=== PATIENT | female | born 1940 | race Caucasian/White ===

== ENCOUNTER 2017-02-12 12:38 | Inpatient (IN) | payer OTHER ==
[2017-02-12] MEDS ORDERED: SODIUM CHLORIDE 1,000 ML IV STA (12:59)
[2017-02-12] MEDS ORDERED: VANCOMYCIN 1 GRAM (PRE-DOCKED) 1,000 MG/250 ML BAG IVPB ONE (13:00)
[2017-02-12] MEDS ORDERED: PIPERACILLIN/TAZOB 3.375 GM/50 ML PRE-DOCKED IV ONE (13:00)
[2017-02-12] MEDS ORDERED: ONDANSETRON 4 MG/2 ML VIAL IVPUSH ONE (13:02)
[2017-02-12] MEDS ORDERED: HYDROmorphone HCL CARPU-JECT 2 MG/1 ML DISP.SYRIN IVPB ONE (13:02)
[2017-02-12] MEDS ORDERED: ACETAMINOPHEN 1000 MG/100 ML VIAL (NON FORMULARY) IVPB ONE (13:04)
[2017-02-12] MEDS ORDERED: HYDROmorphone HCL CARPU-JECT 2 MG/1 ML DISP.SYRIN ONE (13:06)
[2017-02-12] MEDS ORDERED: ONDANSETRON 4 MG/2 ML VIAL ONE (13:06)
[2017-02-12] MEDS ORDERED: ACETAMINOPHEN INJECTION 100 ML IVPB ONE (13:06)
--- NOTE | 2017-02-12 13:12 | PDOC ---
History of Present Illness - History of Present Illness Initial Comments: 02/12/17 13:16 The patient is a 76 year old female, with a significant past medical history of borderline diabetes, Afib, hypertension, venous insufficiency, chronic LE ulcer , stroke (6 months ago), and chronic back pain, who presents to the emergency department via ems with funeral home location manager for cellulitis, fever, and with altered mental status today. The patient presents with her funeral home location manager who reports the patient has not taken her methadone or oxycontin in the last 2 days because she has not more medication. The patient has also been taking augmentin for 10 days, however, the funeral home location manager states she has not been taking the antibiotic as directed and the ulcer on her left lower extremity has now increased in surrounding redness and tenderness. The patient's funeral home location manager also states the patient is slightly altered today and is not usually like "this ". As per ems, the patient became combative in the field and was given haldol. She denies chest pain, shortness of breath, headache and dizziness. She denies chills, nausea, vomit, diarrhea and constipation. She denies dysuria, frequency , urgency and hematuria. Allergies: codeine Social history: opioid dependency <Marlena Weinre - Last Filed: 02/12/17 19:31> <William Rodriguez - Last Filed: 02/12/17 19:55> - General Chief Complaint: SIRS, Suspected/Possible Stated Complaint: AMS Time Seen by Provider: 02/12/17 12:56 Past History <Marlena Weiner - Last Filed: 02/12/17 19:31> - Past Medical History Anemia: No Asthma: Yes Cancer: No Cardiac Disorders: Yes (A - FIB) CVA: Yes (STROKE) COPD: No CHF: No Dementia: No Diabetes: Yes GI Disorders: No Disorders: No HTN: Yes Hypercholesterolemia: No Liver Disease: No Seizures: Yes Thyroid Disease: No - Surgical History Abdominal Surgery: No Appendectomy: Yes Cardiac Surgery: No Cholecystectomy: No Lung Surgery: No Neurologic Surgery: No Orthopedic Surgery: No - Psycho/Social/Smoking Cessation Hx Anxiety: No Suicidal Ideation: No Smoking History: Former smoker Have you smoked in the past 12 months: No If you are a former smoker, when did you quit?: 30 years ago Hx Alcohol Use: No Drug/Substance Use Hx: Yes (pain meds) Substance Use Type: None, Prescribed Hx Substance Use Treatment: Yes (2006 [facility]) <William Rodriguez - Last Filed: 02/12/17 19:55> - Past Medical History Allergies/Adverse Reactions: Allergies Allergy/AdvReac Type Severity Reaction Status Date / Time codeine phosphate AdvReac Mild Nausea Verified 06/01/15 14:24 [From Tylenol-Codeine] Home Medications: Ambulatory Orders Furosemide [Lasix -] 40 mg PO DAILY 02/12/17 Methadone [Dolophine -] 20 mg PO Q8H 02/12/17 Metoprolol Tartrate [Lopressor -] 25 mg PO BID 02/12/17 Morphine Sulfate [Morphine Sulfate ER] 15 mg PO Q4H 02/12/17 Nebivolol HCl [Bystolic] 10 mg PO DAILY 02/12/17 Rivaroxaban [Xarelto -] 15 mg PO DAILY 02/12/17 Spironolactone 50 mg PO DAILY 02/12/17 Review of Systems - Review of Systems Able to Perform ROS?: No (altered. ) <Marlena Weiner - Last Filed: 02/12/17 19:31> *Physical Exam - Vital Signs Last Vital Signs Temp Pulse Resp BP Pulse Ox 103.5 F H 134 H 22 133/83 02/12/17 12:56 02/12/17 12:56 02/12/17 12:56 02/12/17 12:56 - Physical Exam Comments: 02/12/17 13:18 GENERAL: (+) Pt is slightly confused, yelling upon exam. Awake, alert. in no acute distress HEAD: No signs of trauma EYES: (+) right pupil is slightly less reactive than left. EOMI, sclera anicteric, conjunctiva clear ENT: Auricles normal inspection, hearing grossly normal, nares patent, oropharynx clear without exudates. Moist mucosa NECK: Normal ROM, supple, no lymphadenopathy, JVD, or masses LUNGS: Breath sounds equal, clear to auscultation bilaterally. No wheezes, and no crackles HEART: Regular rate and rhythm, normal S1 and S2, no murmurs, rubs or gallops ABDOMEN: Soft, nontender, normoactive bowel sounds. No guarding, no rebound. No masses EXTREMITIES: (+) LLE is erythematous and tender surrounding ulcer. Normal range of motion, no edema. No clubbing or cyanosis. No cords. NEUROLOGICAL: Cranial nerves II through XII grossly intact. Gait deferred. SKIN: Warm, Dry, normal turgor, no rashes or lesions noted. <Marlena Weiner - Last Filed: 02/12/17 19:31> Heart Score/ECG Review - ECG Intrepretation Comment:: 02/12/17 14:36 ECG was read by Dr. Rodriguez at 13:30 Impression: Atrial flutter with variable AV block. Nonspecific ST abnormality. Abnormal QRS-T angle, consider primary T wave abnormality. Vent. Rate: 131 bpm <Marlena Weiner - Last Filed: 02/12/17 19:31> ED Treatment Course - LABORATORY CBC & Chemistry Diagram: 02/12/17 13:37 02/12/17 13:37 - RADIOLOGY Radiograph Interpretation: 02/12/17 16:01 CXR was read by Dr. Eddy Impression: weak inspiratory effort. <Marlena Weiner - Last Filed: 02/12/17 19:31> - LABORATORY CBC & Chemistry Diagram: 02/12/17 13:37 02/12/17 13:37 - RADIOLOGY Radiology Studies Ordered: Category Date Time Status CHEST X-RAY PORTABLE* [RAD] Stat Radiology 02/12/17 12:58 Ordered <William Rodriguez - Last Filed: 02/12/17 19:55> Medical Decision Making - Medical Decision Making 02/12/17 13:25 The patient is a 76 year old female with opioid dependence who presents febrile via ems for cellulitis, fever, and AMS today with funeral home location manager. The patient appears to be septic at this time. The patient is yelling in the room upon initial evaluation. The patients medical history is significant for borderline diabetes, Afib, hypertension, venous insufficiency, chronic LE ulcer, stroke (6 months ago), and chronic back pain. I will obtain ECG, PTT, cardiac profile, CBC w/ differential, Comp metabolic panel, lactic acid, PT/INR, urinalysis, blood urinalysis, CXR portable, VBG, type and screen, nasal canula. 02/12/17 16:[address] Sesay at this time to discuss the patient's possible admission to ICU. Dr. Sesay feels the patient can be admitted to [facility] or [address] [place] [address] if she can improve. 02/12/17 17:14 Dr. Braxton was paged via phone answering service at this time requesting a call back for doctor to doctor consult regarding service admission of this patient. 02/12/17 17:37 Dr. Braxton was paged a second time via phone answering service at this time. Dr. Braxton returned the call at 17:38 and the patient's case was discussed. She accepts the admission and requests consults to Dr. Jarvis (ID), Dr. Liao (pain management), Dr. Adarsh Loving (vascular surgeon), and Dr. Ho (cardiology). Dr. Braxton also asks that we call her at 6:30 to determine the placement of the patient's admission (ICU or [facility]). 02/12/17 19:31 Dr. Sesay was called at this time and the patient's case was discussed. Dr. Sesay will accept the patient to the ICU at this time with admission under Dr. Braxton. <Marlena Weiner - Last Filed: 02/12/17 19:31> *DC/Admit/Observation/Transfer - Attestations Scribe Attestion: 02/12/17 13:25 Documentation prepared by Marlena Weiner, acting as anesthesiology medical doctor for William Rodriguez MD <Marlena Weiner - Last Filed: 02/12/17 19:31> - Discharge Dispostion Admit: Yes - Attestations Physician Attestion: 02/12/17 13:12 I, Dr. William Rodriguez, attest that this document has been prepared under my direction and personally reviewed by me in its entirety. I further attest, that it accurately reflects all work, treatment, procedures and medical decision -making performed by me. <William Rodriguez - Last Filed: 02/12/17 19:55> Diagnosis at time of Disposition: Cellulitis of both lower extremities, Severe sepsis, Septic shock, Opioid withdrawal, Lymphedema of both lower extremities, Atrial fibrillation with rapid ventricular response, Lactic acidosis - Discharge Dispostion Condition at time of disposition: Improved
[2017-02-12] MEDS ORDERED: PIPERACILLIN/TAZOB 3.375 GM 50 ML IVPB ONE (13:37)
[2017-02-12 13:50] LABS: MCH 24.5 pg (25.7-33.7); MCHC 30.9 g/dl (32.0-36.0); MEAN CELL VOLUME 79.1 fl (80-96); MEAN PLT VOLUME 8.2 fl (7.5-11.1); PLATELET COUNT 263 K/MM3 (134-434); RDW 19.5 % (11.6-15.6); WHITE BLOOD COUNT 21.7 K/mm3 (4.0-10.0)
[2017-02-12] MEDS ORDERED: VANCOMYCIN 1 GRAM (PRE-DOCKED) 250 ML IVPB ONE (14:01)
[2017-02-12 14:05] LABS: INR 1.69 (0.82-1.09); PROTHROMBIN TIME (PATIENT) 18.8 SEC (9.98-11.88)
[2017-02-12 14:12] LABS: ALBUMIN 1.8 g/dl (3.4-5.0); BILIRUBIN,TOTAL 1.1 mg/dL (0.2-1.0); CALCIUM 7.7 mg/dL (8.5-10.1); COCKROFT - GAULT 44.965; CREATININE 1.7 mg/dL (0.55-1.02); TOT PROT 6.4 g/dl (6.4-8.2)
[2017-02-12 14:25] LABS: TROPONIN I 0.23 ng/ml (0.00-0.05)
[2017-02-12] MEDS ORDERED: HALOPERIDOL LACTATE 5 MG/ML IVPUSH ONE (14:27)
[2017-02-12] MEDS ORDERED: LORAZEPAM CARPU-JECT 2 MG/ML DISP.SYRIN IVPUSH ONE (14:27)
[2017-02-12 14:32] LABS: ARTERIAL BLD GAS O2 SATURATION 95.6 % (90-98.9); ARTERIAL BLOOD GAS BASE EXCESS -1.7 meq/l (-2-2); ARTERIAL BLOOD GAS HCO3 21.5 meq/L (22-26); ARTERIAL BLOOD GAS PO2 76.7 mmHg (70-100); ARTERIAL BLOOD GAS pH 7.44 (7.35-7.45)
[2017-02-12 14:33] LABS: ALLENS TEST POSITIVE; ART PUNCT SITE RIGHT RADIAL; LPM/O2% 21%; PT. ON O2? NO; TYPE OF O2 ROOM AIR
[2017-02-12] MEDS ORDERED: HALOPERIDOL LACTATE 5 MG/ML ONE (14:33)
[2017-02-12] MEDS ORDERED: LORAZEPAM CARPU-JECT 2 MG/ML DISP.SYRIN ONE (14:34)
--- NOTE | 2017-02-12 16:10 | EKG ---
Test Reason : Blood Pressure : / mmHG Vent. Rate : 131 BPM Atrial Rate : 393 BPM P-R Int : 000 ms QRS Dur : 076 ms QT Int : 306 ms P-R-T Axes : 000 058 -17 degrees QTc Int : 451 ms ATRIAL FIBRILLATION WITH RAPID VENTRICULAR RESPONSE NONSPECIFIC ST ABNORMALITY ABNORMAL QRS-T ANGLE, CONSIDER PRIMARY T WAVE ABNORMALITY ABNORMAL ECG WHEN COMPARED WITH ECG OF 07-MAY-2015 22:09, NONSPECIFIC T WAVE ABNORMALITY NO LONGER EVIDENT IN LATERAL LEADS Confirmed by ARTI VARNER MD ([id number]) on 02/12/2017 4:10:23 PM Referred By: Confirmed By:ARTI VARNER MD
[2017-02-12 17:33] LABS: METAMYELOCYTE 1 % (0-2)
[2017-02-12 17:35] LABS: ANISOCYTOSIS 1+; PLATELET ESTIMATE ADEQUATE (NORMAL); POLYCHROMASIA RARE; TOXIC GRANULATION 1+
[2017-02-12 18:33] LABS: TROPONIN I 0.23 ng/ml (0.00-0.05)
--- NOTE | 2017-02-12 21:15 | CONSULT ---
Consult Consult Specialty:: Pulm/CCM Reason for Consultation:: Sepsis, cellulitis, LOVE, afib w/ RVR - History of Present Illness Chief Complaint: AMS, LE edema/redness/pain History of Present Illness: This is a 75 yo woman with HTN, CVA (2016), chronic pain disorder (back) on methadone, Afib on xarelto, peripheral vascular disease c/b chronic LE ulcers who presented from home with fever, increased LE edema and erythema around ulcer c/w cellulitis. Per patient INFRASTRUCTURE SOLUTIONS ARCHITECT patient was recently prescribed augmentin for LE cellulitis but has been non compliant w/ therapy. On da yof admission INFRASTRUCTURE SOLUTIONS ARCHITECT noted patient with AMS (combative). EMS was activated and patient received haldol in the field 2/2 agitation. In the ED she was noted to have leukocytosis (wbc 21, 19% bands), and febrile (103.5). Lactate 7->4. She continued to have agitation t/w ativan and benadryl. ABX started for sepsis r/t cellulitis: vanco/ zosyn. BP initially 130/60 but dropped to SBP 80-90s. EKG: afib w/ RVR (130s) - History Source History Provided By: Medical Record Limitations to Obtaining History: Poor Historian - Past Medical History BIOMEDICAL TECHNICIAN: Yes: CVA Cardio/Vascular: Yes: HTN Infectious Disease: Yes: Other (cellulits) Musculoskeletal: Yes: Chronic low back pain Dermatology: Yes: Cellulitis (chronic bilateral LE) - Alcohol/Substance Use Hx Alcohol Use: No - Smoking History Smoking history: Former smoker Have you smoked in the past 12 months: No If you are a former smoker, when did you quit?: 30 years ago - Social History ADL: Support Services History of Recent Travel: No Home Medications - Allergies Allergies/Adverse Reactions: Allergies Allergy/AdvReac Type Severity Reaction Status Date / Time codeine phosphate AdvReac Mild Nausea Verified 06/01/15 14:24 [From Tylenol-Codeine] - Home Medications Home Medications: Ambulatory Orders Furosemide [Lasix -] 40 mg PO DAILY 02/12/17 Methadone [Dolophine -] 20 mg PO Q8H 02/12/17 Metoprolol Tartrate [Lopressor -] 25 mg PO BID 02/12/17 Morphine Sulfate [Morphine Sulfate ER] 15 mg PO Q4H 02/12/17 Nebivolol HCl [Bystolic] 10 mg PO DAILY 02/12/17 Rivaroxaban [Xarelto -] 15 mg PO DAILY 02/12/17 Spironolactone 50 mg PO DAILY 02/12/17 Family Disease History - Family Disease History Family History: Unable to Obtain Review of Systems Unable to obtain ROS, reason: uncooperative/agitation - Review of Systems Constitutional: reports: Fever Integumentary: reports: Erythema, Wound Neurological: reports: Confusion Pain Intensity: 8 Physical Exam Vital Signs: Vital Signs Temperature 99.2 F 02/12/17 17:30 Pulse Rate 107 H 02/12/17 19:02 Respiratory Rate 20 02/12/17 19:02 Blood Pressure 91/60 02/12/17 19:02 O2 Sat by Pulse Oximetry (%) 98 02/12/17 19:02 Selected Entries 02/12/17 13:37 Temperature 103.5 F H Constitutional: Yes: Obese, Other (agitated) Cardiovascular: Yes: Pulse Irregular, S1, S2 Respiratory: Yes: CTA Bilaterally Gastrointestinal: Yes: Soft, Abdomen, Obese, Other (non tender to palp) Edema: Yes Edema: LLE: 3+, RLE: 3+ Integumentary: Yes: Venous Stasis Changes, Other (stage 2 buttock: 2x3 left, 1x1 right RLE: large almost completely circumferential (~16cm x15cm) escar based ulcer erythemia. LLE large (10x15 clean based with escar at edges) with erythemia) Neurological: Yes: Confusion Psychiatric: Yes: Agitated Labs: CBC, BMP 02/12/17 13:37 02/12/17 13:37 Laboratory Tests 02/12/17 02/12/17 02/12/17 13:37 13:37 17:44 Band Neutrophils 19.0 H Lactic Acid 7.303 H* 4.482 H* Imaging - Results Chest X-ray: Report Reviewed, Image Reviewed (clear, no focal infiltrate noted) Problem List - Problems (1) Atrial fibrillation with rapid ventricular response Code(s): I48.91 - UNSPECIFIED ATRIAL FIBRILLATION (2) Cellulitis of both lower extremities Code(s): L03.115 - CELLULITIS OF RIGHT LOWER LIMB L03.116 - CELLULITIS OF LEFT LOWER LIMB (3) Lactic acid acidosis Code(s): E87.2 - ACIDOSIS (4) Severe sepsis Code(s): A41.9 - SEPSIS, UNSPECIFIED ORGANISM R65.20 - SEVERE SEPSIS WITHOUT SEPTIC SHOCK (5) Chronic cutaneous venous stasis ulcer Code(s): I83.009 - VARICOSE VEINS OF UNSP LOWER EXTREMITY W ULCER OF UNSP SITE (6) Chronic pain Code(s): G89.29 - OTHER CHRONIC PAIN (7) Opioid dependence Code(s): F11.20 - OPIOID DEPENDENCE, UNCOMPLICATED (8) LOVE (acute kidney injury) Code(s): N17.9 - ACUTE KIDNEY FAILURE, UNSPECIFIED Assessment/Plan This is a 75 yo woman HTN, CVA, chronic pain disorder (methadone), A fib w/ RVR , peripheral vascular disease c/b LE ulcer now with sepsis r/t LE cellulitis c/ b afib w/ RVR and LOVE (baseline Scr 1.0) likely prerenal -surgical evaluation of LE ulcers -will likely need NIFS -will do wet to dry dressing tonight -ID consulted -will continue zosyn and vanco for broad coverage of cellulitis -f/u blood cultures -renal dose medications (vanco by level) -IV fluids for BP support -hold home lasix and anti HTN meds -urine lytes -christina cath -trend lactate -trend troponin (slightly elevated most likely r/t RVR) -will place CVC for central access if BP refractory to IVF -EKG to monitor qtc in setting of methadone and haldol -if hypotensive w/ continued afib w/ RVR will start amiodarone in the acute setting, goal HR <100 -cont methadone daily -prn hydromorphone for pain -O2 for Sat >92% -currently on xarelto as outpatient would favor starting heparin in the setting of acute illness and questionable need of surgical intervention, will defer to primary MD -APAP for fever >101 -pepcid for GI prophylaxis given sepsis Boerem ACNP Pulm/CCM CCT: 45m
[2017-02-12] MEDS ORDERED: SODIUM CHLORIDE 1,000 ML IV SCH (21:45)
[2017-02-12] MEDS ORDERED: ACETAMINOPHEN 325 MG TABLET (FP) PO PRN (21:50)
[2017-02-12] MEDS ORDERED: CHLORHEXIDINE GLUCONATE 4% CLEANSER FOR DECOLONIZATION TP SCH (22:00)
[2017-02-12] MEDS: MUPIROCIN 2% TOPICAL OINTMENT FOR DECOLONIZATION NS SCH (22:48)
[2017-02-12 23:11] LABS: URINE APPEARANCE TURBID; URINE BLOOD NEGATIVE (NEGATIVE); URINE COLOR RED; URINE GLUCOSE (UA) NEGATIVE (NEGATIVE); URINE KETONE NEGATIVE (NEGATIVE); URINE LEUK ESTERASE NEGATIVE (NEGATIVE); URINE NITRITE NEGATIVE (NEGATIVE); URINE UROBILINOGEN 4.0 E.U/dl E.U./dl (0.2-1.0)
[2017-02-12 23:12] LABS: URINE PROTEIN 1+ (NEGATIVE)
[2017-02-12 23:22] LABS: URINE MUCUS FEW; URINE RBC 2 /hpf (0-3)
[2017-02-12 23:47] VITALS: BMI 40.6
--- NOTE | 2017-02-13 00:27 | HP ---
Admitting History and Physical - Admission Chief Complaint: Fever History of Present Illness: Pt is a 76 y/o morbidly obese female w/ multiple medical problems including a cva about 6 months ago w/ residual weakness/dysphagia. Pt has a PMH significant for Afib, HTN, HLD, diabetes, chronic venous stasis, chronic leg ulcers, morbid obesityy and chronic back pain for wc she had been on opiates and due to opoid dependency was on methadone. Pt had not taken methadone in 2 days. Pt was sent to the ER bc her ENGINEERING DRAFTER noticed pt to be more lethargic and worsening of her leg ulcers w/ increased erythema. In the ER pt found to be septic and was admitted to the ICU. - Past Medical History PATIENT MONITOR: Yes: CVA Cardiovascular: Yes: AFIB, HTN, Hyperlipdemia ...: No Infectious Disease: Yes: Other (cellulits) Musculoskeletal: Yes: Chronic low back pain Dermatology: Yes: Cellulitis (chronic bilateral LE), Other (Chronic venous stasis) - Smoking History Smoking history: Former smoker Have you smoked in the past 12 months: No If you are a former smoker, when did you quit?: 30 years ago - Alcohol/Substance Use Hx Alcohol Use: No - Social History ADL: Support Services History of Recent Travel: No Home Medications - Allergies Allergies/Adverse Reactions: Allergies Allergy/AdvReac Type Severity Reaction Status Date / Time codeine phosphate AdvReac Mild Nausea Verified 06/01/15 14:24 [From Tylenol-Codeine] - Home Medications Home Medications: Ambulatory Orders Furosemide [Lasix -] 40 mg PO DAILY 02/12/17 Methadone [Dolophine -] 20 mg PO Q8H 02/12/17 Metoprolol Tartrate [Lopressor -] 25 mg PO BID 02/12/17 Morphine Sulfate [Morphine Sulfate ER] 15 mg PO Q4H 02/12/17 Nebivolol HCl [Bystolic] 10 mg PO DAILY 02/12/17 Rivaroxaban [Xarelto -] 15 mg PO DAILY 02/12/17 Spironolactone 50 mg PO DAILY 02/12/17 Family Disease History - Family Disease History Family History: Unable to Obtain Review of Systems Unable to obtain ROS, reason: Altered mental status Physical Examination Vital Signs: Vital Signs Temperature 97.9 F 02/12/17 23:27 Pulse Rate 85 02/13/17 00:11 Respiratory Rate 13 02/13/17 00:11 Blood Pressure 105/51 02/13/17 00:11 O2 Sat by Pulse Oximetry (%) 98 02/12/17 23:27 Constitutional: Yes: Obese HENT: Yes: WNL Neck: Yes: Supple Cardiovascular: Yes: Pulse Irregular Respiratory: Yes: Other (Decreased BS b/l) Gastrointestinal: Yes: Normal Bowel Sounds, Abdomen, Obese Extremities: Yes: Other ((+) b/l edema/venous stasis/erythem and chronic ulcers w/ some drainage) Problem List - Problems (1) Sepsis Assessment/Plan: Probably due to cellulitis/chronic leg ulcers Cont IV antibxs Cont wound care ID consult/Critical care consult Cont IVF Monitor lactic acid Code(s): A41.9 - SEPSIS, UNSPECIFIED ORGANISM (2) Altered mental state Assessment/Plan: Probably combination of metabolic vs infectious encephalopathy Code(s): R41.82 - ALTERED MENTAL STATUS, UNSPECIFIED (3) Atrial fibrillation with rapid ventricular response Assessment/Plan: Unclear if pt was on xarelto Cont IV heparin for now As per cardio Tachy due to sepsis Code(s): I48.91 - UNSPECIFIED ATRIAL FIBRILLATION (4) Lymphedema of both lower extremities Code(s): I89.0 - LYMPHEDEMA, NOT ELSEWHERE CLASSIFIED (5) Chronic cutaneous venous stasis ulcer Code(s): I83.009 - VARICOSE VEINS OF UNSP LOWER EXTREMITY W ULCER OF UNSP SITE (6) Chronic pain Code(s): G89.29 - OTHER CHRONIC PAIN (7) Diabetes Code(s): E11.9 - TYPE 2 DIABETES MELLITUS WITHOUT COMPLICATIONS (8) HTN (hypertension) Code(s): I10 - ESSENTIAL (PRIMARY) HYPERTENSION (9) Morbid obesity Code(s): E66.01 - MORBID (SEVERE) OBESITY DUE TO EXCESS CALORIES
[2017-02-13] MEDS ORDERED: PIPERACILLIN/TAZOB 3.375 GM/50 ML PRE-DOCKED IVPB ONE (02:00)
[2017-02-13 06:41] LABS: MCH 24.1 pg (25.7-33.7); MEAN CELL VOLUME 77.9 fl (80-96); MEAN PLT VOLUME 8.4 fl (7.5-11.1); PLATELET COUNT 247 K/MM3 (134-434); RDW 19.5 % (11.6-15.6); WHITE BLOOD COUNT 16.7 K/mm3 (4.0-10.0)
[2017-02-13 07:02] LABS: INR 1.54 (0.82-1.09); PROTHROMBIN TIME (PATIENT) 17.1 SEC (9.98-11.88)
[2017-02-13 07:05] LABS: ACTIVATED PTT 34.5 SECONDS (26.9-34.4)
[2017-02-13 07:13] LABS: CALCIUM 7.2 mg/dL (8.5-10.1); COCKROFT - GAULT 62.7385; CREATININE 1.4 mg/dL (0.55-1.02); MAGNESIUM 1.9 mg/dL (1.8-2.4); PHOSPHOROUS 3.2 mg/dL (2.5-4.9)
[2017-02-13 07:57] LABS: TROPONIN I 0.13 ng/ml (0.00-0.05)
[2017-02-13] MEDS: HYDROmorphone HCL CARPU-JECT 2 MG/1 ML DISP.SYRIN IVPUSH PRN ×4 (08:58→22:42)
[2017-02-13] MEDS: METOPROLOL TARTRATE 25 MG TABLET (FP) PO SCH ×3 (09:01→22:35)
[2017-02-13] MEDS: MUPIROCIN 2% TOPICAL OINTMENT FOR DECOLONIZATION NS SCH ×2 (09:43→22:26)
[2017-02-13] MEDS ORDERED: METOPROLOL TARTRATE 25 MG TABLET (FP) PO SCH (10:00)
[2017-02-13] MEDS ORDERED: PIPERACILLIN/TAZOB 3.375 GM 50 ML IVPB SCH (10:00)
[2017-02-13] MEDS ORDERED: PANTOPRAZOLE 20 MG TABLET (FP) PO SCH (10:00)
[2017-02-13 11:46] LABS: URINE MARIJUANA THC NEGATIVE ng/ml (CUTOFF=50)
--- NOTE | 2017-02-13 12:07 | PN ---
Progress Note (short form) - Note Progress Note: ID Consult dictated Sepsis/ septic shock, probable skin source Infected leg ulcers/ LE cellulitis Toxic metabolic encephalopathy Hx MRSA Hemodynamic suport/ ICU monitoring Pending sepsis workup, continue zosyn/ vancomycin Local wound care Contact precautions MRSA Critical care time 35min
[2017-02-13] MEDS ORDERED: VANCOMYCIN 1 GRAM (PRE-DOCKED) 250 ML IVPB SCH (12:15)
--- NOTE | 2017-02-13 12:20 | PN ---
Teaching Attending Note Name of Resident: Kameron Benoit ATTENDING PHYSICIAN STATEMENT I saw and evaluated the patient. I reviewed the resident's note and discussed the case with the resident. I agree with the resident's findings and plan as documented. SUBJECTIVE: Patient seen and examined in the ICU. Reports some chronic discomfort in her LE. No CP or SOB. Remains off pressors; BP marginal. Required several doses of sedatives overnight due to being combative. Intake & Output 02/10/17 02/11/17 02/12/17 02/13/17 23:59 23:59 23:59 23:59 Intake Total 1000 1000 Output Total 300 Balance 1000 700 Weight 251 lb 6.4 oz 252 lb 6 oz Last Vital Signs Temp Pulse Resp BP Pulse Ox 99.1 F 100 H 18 86/55 98 02/13/17 10:07 02/13/17 12:00 02/13/17 12:00 02/13/17 12:00 02/13/17 07:55 Active Medications Acetaminophen (Tylenol -) 650 mg PO Q6H PRN PRN Reason: FEVER OR PAIN Last Admin: 02/13/17 09:52 Dose: 650 mg Chlorhexidine Gluconate (Hibiclens For Decolonization -) 1 applic TP HS CHENTE Last Admin: 02/12/17 22:48 Dose: 1 applic Hydromorphone HCl (Dilaudid Injection -) 2 mg IVPUSH Q4H PRN PRN Reason: PAIN LEVEL 6-10 Last Admin: 02/13/17 08:58 Dose: 2 mg Sodium Chloride (Normal Saline -) 1,000 mls @ 100 mls/hr IV ASDIR CHENTE Last Admin: 02/12/17 22:50 Dose: 100 mls/hr Piperacillin Sod/Tazobactam Sod (Zosyn 4.5gm Ivpb (Pre-Docked)) 100 mls @ 200 mls/hr IVPB Q8H-IV CHENTE PRN Reason: Protocol Vancomycin HCl (Vancomycin (Pre-Docked)) 250 mls @ 200 mls/hr IVPB BID CHENTE Metoprolol Tartrate (Lopressor -) 25 mg PO BID CHENTE Last Admin: 02/13/17 09:59 Dose: Not Given Mupirocin (Bactroban Ointment (For Decolonization) -) 1 applic NS BID [facility] Stop: 02/17/17 21:59 Last Admin: 02/13/17 09:43 Dose: 1 applic Pantoprazole Sodium (Protonix -) 20 mg PO DAILY CHENTE Last Admin: 02/13/17 09:53 Dose: 20 mg Constitutional: Yes: Obese, NAD Cardiovascular: Yes: Pulse Irregular, S1, S2 Respiratory: Yes: CTA Bilaterally Gastrointestinal: Yes: Soft, Abdomen, Obese, Other (non tender to palp) Edema: Yes Edema: LLE: 3+, RLE: 3+ Integumentary: Yes: Venous Stasis Changes, Other (stage 2 buttock: 2x3 left, 1x1 right RLE: large almost completely circumferential (~16cm x15cm) escar based ulcer erythemia. LLE large (10x15 clean based with escar at edges) with erythemia) Neurological: Yes: Confusion Psychiatric: Yes: Agitated Labs: Laboratory Results - last 24 hr 02/12/17 02/12/17 02/12/17 13:37 13:37 13:37 WBC 21.7 H RBC 3.84 D Hgb 9.4 L D Hct 30.3 L D MCV 79.1 L MCHC 30.9 L RDW 19.5 H Plt Count 263 D MPV 8.2 Neutrophils % 77.0 Lymphocytes % 2.0 L D Monocytes % 1.0 L D Band Neutrophils 19.0 H Metamyelocytes 1 Differential Comment Manual diff done Toxic Granulation 1+ Platelet Estimate Adequate Platelet Comment Few giant plts Polychromasia Rare Anisocytosis 1+ Morphology Comment Slide scanned INR 1.69 H PTT (Actin FS) 33.0 Puncture Site ABG pH ABG pCO2 at Pt Temp ABG pO2 at Pt Temp ABG HCO3 ABG O2 Sat (Measured) ABG O2 Content ABG Base Excess Vinod Test O2 Delivery Device Oxygen Flow Rate PEEP Sodium 131 L Potassium 4.1 Chloride 92 L Carbon Dioxide 23 Anion Gap 16 BUN 22 H D Creatinine 1.7 H D Creat Clearance w eGFR 29.30 Random Glucose 180 H Hemoglobin A1c % Lactic Acid Calcium 7.7 L Phosphorus Magnesium Total Bilirubin 1.1 H D AST 48 H D ALT 13 Alkaline Phosphatase 124 H Creatine Kinase 1212 H D CK-MB (CK-2) 8.459 H Troponin I 0.23 H Total Protein 6.4 Albumin 1.8 L D Urine Color Urine Appearance Urine pH Ur Specific [place] Urine Protein Urine Glucose (UA) Urine Ketones Urine Blood Urine Nitrite Urine Bilirubin Urine Urobilinogen Ur Leukocyte Esterase Urine RBC Urine WBC Urine Mucus U Random Total Protein Ur Random Sodium Ur Random Potassium Ur Random Chloride Urine Creatinine Random Vancomycin Opiates Screen Methadone Screen Barbiturate Screen Phencyclidine Screen Ur Amphetamines Screen MDMA (Ecstasy) Screen Benzodiazepines Screen Cocaine Screen U Marijuana (THC) Screen Blood Type Antibody Screen 02/12/17 02/12/17 02/12/17 13:37 13:37 13:59 WBC RBC Hgb Hct MCV MCHC RDW Plt Count MPV Neutrophils % Lymphocytes % Monocytes % Band Neutrophils Metamyelocytes Differential Comment Toxic Granulation Platelet Estimate Platelet Comment Polychromasia Anisocytosis Morphology Comment INR PTT (Actin FS) Puncture Site ABG pH ABG pCO2 at Pt Temp ABG pO2 at Pt Temp ABG HCO3 ABG O2 Sat (Measured) ABG O2 Content ABG Base Excess Vinod Test O2 Delivery Device Oxygen Flow Rate PEEP Sodium Potassium Chloride Carbon Dioxide Anion Gap BUN Creatinine Creat Clearance w eGFR Random Glucose Hemoglobin A1c % Lactic Acid 7.303 H* Calcium Phosphorus Magnesium Total Bilirubin AST ALT Alkaline Phosphatase Creatine Kinase CK-MB (CK-2) Troponin I Total Protein Albumin Urine Color Urine Appearance Urine pH Ur Specific [place] Urine Protein Urine Glucose (UA) Urine Ketones Urine Blood Urine Nitrite Urine Bilirubin Urine Urobilinogen Ur Leukocyte Esterase Urine RBC Urine WBC Urine Mucus U Random Total Protein Ur Random Sodium Ur Random Potassium Ur Random Chloride Urine Creatinine Random Vancomycin Opiates Screen Methadone Screen Barbiturate Screen Phencyclidine Screen Ur Amphetamines Screen MDMA (Ecstasy) Screen Benzodiazepines Screen Cocaine Screen U Marijuana (THC) Screen Blood Type A POSITIVE A POSITIVE Antibody Screen Negative 02/12/17 02/12/17 02/12/17 14:30 14:50 17:25 WBC RBC Hgb Hct MCV MCHC RDW Plt Count MPV Neutrophils % Lymphocytes % Monocytes % Band Neutrophils Metamyelocytes Differential Comment Toxic Granulation Platelet Estimate Platelet Comment Polychromasia Anisocytosis Morphology Comment INR PTT (Actin FS) Puncture Site Right radial ABG pH 7.44 ABG pCO2 at Pt Temp 32.0 L ABG pO2 at Pt Temp 76.7 ABG HCO3 21.5 L ABG O2 Sat (Measured) 95.6 ABG O2 Content 11.6 L ABG Base Excess -1.7 Vinod Test Positive O2 Delivery Device Room air Oxygen Flow Rate 21% PEEP 0.0 Sodium Potassium Chloride Carbon Dioxide Anion Gap BUN Creatinine Creat Clearance w eGFR Random Glucose Hemoglobin A1c % Lactic Acid 7.250 H* Calcium Phosphorus Magnesium Total Bilirubin AST ALT Alkaline Phosphatase Creatine Kinase 1686 H D CK-MB (CK-2) Troponin I 0.23 H Total Protein Albumin Urine Color Urine Appearance Urine pH Ur Specific [place] Urine Protein Urine Glucose (UA) Urine Ketones Urine Blood Urine Nitrite Urine Bilirubin Urine Urobilinogen Ur Leukocyte Esterase Urine RBC Urine WBC Urine Mucus U Random Total Protein Ur Random Sodium Ur Random Potassium Ur Random Chloride Urine Creatinine Random Vancomycin Opiates Screen Methadone Screen Barbiturate Screen Phencyclidine Screen Ur Amphetamines Screen MDMA (Ecstasy) Screen Benzodiazepines Screen Cocaine Screen U Marijuana (THC) Screen Blood Type Antibody Screen 02/12/17 02/12/17 02/12/17 17:44 22:20 22:50 WBC RBC Hgb Hct MCV MCHC RDW Plt Count MPV Neutrophils % Lymphocytes % Monocytes % Band Neutrophils Metamyelocytes Differential Comment Toxic Granulation Platelet Estimate Platelet Comment Polychromasia Anisocytosis Morphology Comment INR PTT (Actin FS) Puncture Site ABG pH ABG pCO2 at Pt Temp ABG pO2 at Pt Temp ABG HCO3 ABG O2 Sat (Measured) ABG O2 Content ABG Base Excess Vinod Test O2 Delivery Device Oxygen Flow Rate PEEP Sodium Potassium Chloride Carbon Dioxide Anion Gap BUN Creatinine Creat Clearance w eGFR Random Glucose Hemoglobin A1c % Lactic Acid 4.482 H* Calcium Phosphorus Magnesium Total Bilirubin AST ALT Alkaline Phosphatase Creatine Kinase CK-MB (CK-2) Troponin I Total Protein Albumin Urine Color Red Urine Appearance Turbid Urine pH 5.0 Ur Specific [place] 1.028 Urine Protein 1+ H Urine Glucose (UA) Negative Urine Ketones Negative Urine Blood Negative Urine Nitrite Negative Urine Bilirubin 2.0 Urine Urobilinogen 4.0 e.u/dl H Ur Leukocyte Esterase Negative Urine RBC 2 Urine WBC None Urine Mucus Few U Random Total Protein 91 H Ur Random Sodium 8 Ur Random Potassium 57.2 Ur Random Chloride 18 Urine Creatinine 250.0 Random Vancomycin Opiates Screen Methadone Screen Barbiturate Screen Phencyclidine Screen Ur Amphetamines Screen MDMA (Ecstasy) Screen Benzodiazepines Screen Cocaine Screen U Marijuana (THC) Screen Blood Type Antibody Screen 02/13/17 02/13/17 02/13/17 05:30 05:30 05:30 WBC 16.7 H RBC 3.45 L Hgb 8.3 L D Hct 26.9 L MCV 77.9 L MCHC 31.0 L RDW 19.5 H Plt Count 247 MPV 8.4 Neutrophils % Lymphocytes % Monocytes % Band Neutrophils Metamyelocytes Differential Comment Toxic Granulation Platelet Estimate Platelet Comment Polychromasia Anisocytosis Morphology Comment INR 1.54 H PTT (Actin FS) 34.5 H Puncture Site ABG pH ABG pCO2 at Pt Temp ABG pO2 at Pt Temp ABG HCO3 ABG O2 Sat (Measured) ABG O2 Content ABG Base Excess Vinod Test O2 Delivery Device Oxygen Flow Rate PEEP Sodium 135 L Potassium 4.2 Chloride 99 Carbon Dioxide 25 Anion Gap 11 BUN 26 H Creatinine 1.4 H Creat Clearance w eGFR Random Glucose 112 H D Hemoglobin A1c % Lactic Acid Calcium 7.2 L Phosphorus 3.2 Magnesium 1.9 Total Bilirubin AST ALT Alkaline Phosphatase Creatine Kinase CK-MB (CK-2) Troponin I Total Protein Albumin Urine Color Urine Appearance Urine pH Ur Specific [place] Urine Protein Urine Glucose (UA) Urine Ketones Urine Blood Urine Nitrite Urine Bilirubin Urine Urobilinogen Ur Leukocyte Esterase Urine RBC Urine WBC Urine Mucus U Random Total Protein Ur Random Sodium Ur Random Potassium Ur Random Chloride Urine Creatinine Random Vancomycin Opiates Screen Methadone Screen Barbiturate Screen Phencyclidine Screen Ur Amphetamines Screen MDMA (Ecstasy) Screen Benzodiazepines Screen Cocaine Screen U Marijuana (THC) Screen Blood Type Antibody Screen 02/13/17 02/13/17 02/13/17 05:30 05:30 05:30 WBC RBC Hgb Hct MCV MCHC RDW Plt Count MPV Neutrophils % Lymphocytes % Monocytes % Band Neutrophils Metamyelocytes Differential Comment Toxic Granulation Platelet Estimate Platelet Comment Polychromasia Anisocytosis Morphology Comment INR PTT (Actin FS) Puncture Site ABG pH ABG pCO2 at Pt Temp ABG pO2 at Pt Temp ABG HCO3 ABG O2 Sat (Measured) ABG O2 Content ABG Base Excess Vinod Test O2 Delivery Device Oxygen Flow Rate PEEP Sodium Potassium Chloride Carbon Dioxide Anion Gap BUN Creatinine Creat Clearance w eGFR Random Glucose Hemoglobin A1c % 8.6 H Lactic Acid 2.255 H* Calcium Phosphorus Magnesium Total Bilirubin AST ALT Alkaline Phosphatase Creatine Kinase 1654 H CK-MB (CK-2) Troponin I 0.13 H Total Protein Albumin Urine Color Urine Appearance Urine pH Ur Specific [place] Urine Protein Urine Glucose (UA) Urine Ketones Urine Blood Urine Nitrite Urine Bilirubin Urine Urobilinogen Ur Leukocyte Esterase Urine RBC Urine WBC Urine Mucus U Random Total Protein Ur Random Sodium Ur Random Potassium Ur Random Chloride Urine Creatinine Random Vancomycin Opiates Screen Methadone Screen Barbiturate Screen Phencyclidine Screen Ur Amphetamines Screen MDMA (Ecstasy) Screen Benzodiazepines Screen Cocaine Screen U Marijuana (THC) Screen Blood Type Antibody Screen 02/13/17 02/13/17 05:30 10:00 WBC RBC Hgb Hct MCV MCHC RDW Plt Count MPV Neutrophils % Lymphocytes % Monocytes % Band Neutrophils Metamyelocytes Differential Comment Toxic Granulation Platelet Estimate Platelet Comment Polychromasia Anisocytosis Morphology Comment INR PTT (Actin FS) Puncture Site ABG pH ABG pCO2 at Pt Temp ABG pO2 at Pt Temp ABG HCO3 ABG O2 Sat (Measured) ABG O2 Content ABG Base Excess Viond Test O2 Delivery Device Oxygen Flow Rate PEEP Sodium Potassium Chloride Carbon Dioxide Anion Gap BUN Creatinine Creat Clearance w eGFR Random Glucose Hemoglobin A1c % Lactic Acid Calcium Phosphorus Magnesium Total Bilirubin AST ALT Alkaline Phosphatase Creatine Kinase CK-MB (CK-2) Troponin I Total Protein Albumin Urine Color Urine Appearance Urine pH Ur Specific [place] Urine Protein Urine Glucose (UA) Urine Ketones Urine Blood Urine Nitrite Urine Bilirubin Urine Urobilinogen Ur Leukocyte Esterase Urine RBC Urine WBC Urine Mucus U Random Total Protein Ur Random Sodium Ur Random Potassium Ur Random Chloride Urine Creatinine Random Vancomycin 6.999 Opiates Screen Positive Methadone Screen Positive Barbiturate Screen Negative Phencyclidine Screen Negative Ur Amphetamines Screen Negative MDMA (Ecstasy) Screen Negative Benzodiazepines Screen Negative Cocaine Screen Negative U Marijuana (THC) Screen Negative Blood Type Antibody Screen Problem List - Problems (1) Atrial fibrillation with rapid ventricular response Code(s): I48.91 - UNSPECIFIED ATRIAL FIBRILLATION (2) Cellulitis of both lower extremities Code(s): L03.115 - CELLULITIS OF RIGHT LOWER LIMB L03.116 - CELLULITIS OF LEFT LOWER LIMB (3) Lactic acid acidosis Code(s): E87.2 - ACIDOSIS (4) Severe sepsis Code(s): A41.9 - SEPSIS, UNSPECIFIED ORGANISM R65.20 - SEVERE SEPSIS WITHOUT SEPTIC SHOCK (5) Chronic cutaneous venous stasis ulcer Code(s): I83.009 - VARICOSE VEINS OF UNSP LOWER EXTREMITY W ULCER OF UNSP SITE (6) Chronic pain Code(s): G89.29 - OTHER CHRONIC PAIN (7) Opioid dependence Code(s): F11.20 - OPIOID DEPENDENCE, UNCOMPLICATED (8) LOVE (acute kidney injury) Code(s): N17.9 - ACUTE KIDNEY FAILURE, UNSPECIFIED Assessment/Plan ABX per ID Aggressive IVF Follow renal function Strict I&O O2 as needed Follow cultures Surgical evaluation of LE ulcers Local wound care hold home lasix and anti HTN meds Trend lactate Rate control NOAC versus Heparin drip Dr Sesay CCTime 35"
[2017-02-13] MEDS ORDERED: HEPARIN NA (PORCINE) 5,000 UNITS/ML 1ML VIAL IVPUSH PRN ×5 (13:49→14:54)
[2017-02-13] MEDS ORDERED: HEPARIN - 25,000 UNIT in SODIUM CHLORIDE 495 ML IV SCH (14:00)
[2017-02-13] MEDS ORDERED: HEPARIN INFUSION - 500 ML IVPB ONE (14:35)
--- NOTE | 2017-02-13 14:44 | CONSULT ---
Consult Detox [facility] Reason for Current Admission/Consult: Opioid withdrawal sx. Referred by:: William Rodriguez MD - History History of Present Illness: 76 y/o woman on opioid for pain management was brought to ED because of withdrawal sx. According to pt. she stopped her opioid pain meds to see what would happen. Pt. denies abusing her meds. - History Source History Provided By: Patient, Medical Record - Alcohol/Substance Use Hx Alcohol Use: No - Past Medical History VACCINE MANAGER: Yes: CVA Cardio/Vascular: Yes: HTN ...: No Infectious Disease: Yes: Other (cellulits) Musculoskeletal: Yes: Chronic low back pain Dermatology: Yes: Cellulitis (chronic bilateral LE) - Significant Medical Findings: Laboratory Last Values WBC 16.7 K/mm3 (4.0-10.0) H 02/13/17 05:30 RBC 3.45 M/mm3 (3.60-5.2) L 02/13/17 05:30 Hgb 8.3 GM/dL (10.7-15.3) L D 02/13/17 05:30 Hct 26.9 % (32.4-45.2) L 02/13/17 05:30 MCV 77.9 fl (80-96) L 02/13/17 05:30 MCHC 31.0 g/dl (32.0-36.0) L 02/13/17 05:30 RDW 19.5 % (11.6-15.6) H 02/13/17 05:30 Plt Count 247 K/MM3 (134-434) 02/13/17 05:30 MPV 8.4 fl (7.5-11.1) 02/13/17 05:30 Neutrophils % 77.0 % (42.8-82.8) 02/12/17 13:37 Lymphocytes % 2.0 % (8-40) L D 02/12/17 13:37 Monocytes % 1.0 % (3.8-10.2) L D 02/12/17 13:37 Band Neutrophils 19.0 % (0-10) H 02/12/17 13:37 Metamyelocytes 1 % (0-2) 02/12/17 13:37 Differential Comment Manual diff done 02/12/17 13:37 Toxic Granulation 1+ 02/12/17 13:37 Platelet Estimate Adequate (NORMAL) 02/12/17 13:37 Platelet Comment Few giant plts 02/12/17 13:37 Polychromasia Rare 02/12/17 13:37 Anisocytosis 1+ 02/12/17 13:37 Morphology Comment Slide scanned 02/12/17 13:37 INR 1.54 (0.82-1.09) H 02/13/17 05:30 PTT (Actin FS) 34.5 SECONDS (26.9-34.4) H 02/13/17 05:30 Puncture Site Right radial 02/12/17 14:30 ABG pH 7.44 (7.35-7.45) 02/12/17 14:30 ABG pCO2 at Pt Temp 32.0 mmHg (35-45) L 02/12/17 14:30 ABG pO2 at Pt Temp 76.7 mmHg (70-100) 02/12/17 14:30 ABG HCO3 21.5 meq/L (22-26) L 02/12/17 14:30 ABG O2 Sat (Measured) 95.6 % (90-98.9) 02/12/17 14:30 ABG O2 Content 11.6 % vol (15-22) L 02/12/17 14:30 ABG Base Excess -1.7 meq/l (-2-2) 02/12/17 14:30 Vinod Test Positive 02/12/17 14:30 O2 Delivery Device Room air 02/12/17 14:30 Oxygen Flow Rate 21% 02/12/17 14:30 PEEP 0.0 cmH2O 02/12/17 14:30 Sodium 135 mmol/L (136-145) L 02/13/17 05:30 Potassium 4.2 mmol/L (3.5-5.1) 02/13/17 05:30 Chloride 99 mmol/L (98-107) 02/13/17 05:30 Carbon Dioxide 25 mmol/L (21-32) 02/13/17 05:30 Anion Gap 11 (8-16) 02/13/17 05:30 BUN 26 mg/dL (7-18) H 02/13/17 05:30 Creatinine 1.4 mg/dL (0.55-1.02) H 02/13/17 05:30 Creat Clearance w eGFR 29.30 (>60) 02/12/17 13:37 Random Glucose 112 mg/dL (74-106) H D 02/13/17 05:30 Hemoglobin A1c % 8.6 % (4.8-6.0) H 02/13/17 05:30 Lactic Acid 2.088 mmol/L (0.4-2.0) H* 02/13/17 11:30 Calcium 7.2 mg/dL (8.5-10.1) L 02/13/17 05:30 Phosphorus 3.2 mg/dL (2.5-4.9) 02/13/17 05:30 Magnesium 1.9 mg/dL (1.8-2.4) 02/13/17 05:30 Total Bilirubin 1.1 mg/dL (0.2-1.0) H D 02/12/17 13:37 AST 48 U/L (15-37) H D 02/12/17 13:37 ALT 13 U/L (12-78) 02/12/17 13:37 Alkaline Phosphatase 124 U/L (45-117) H 02/12/17 13:37 Creatine Kinase 1654 IU/L (26-192) H 02/13/17 05:30 CK-MB (CK-2) 8.459 ng/ml (0.5-3.6) H 02/12/17 13:37 Troponin I 0.13 ng/ml (0.00-0.05) H 02/13/17 05:30 Total Protein 6.4 g/dl (6.4-8.2) 02/12/17 13:37 Albumin 1.8 g/dl (3.4-5.0) L D 02/12/17 13:37 Urine Color Red 02/12/17 22:20 Urine Appearance Turbid 02/12/17 22:20 Urine pH 5.0 (5.0-8.0) 02/12/17 22:20 Ur Specific [place] 1.028 (1.001-1.035) 02/12/17 22:20 Urine Protein 1+ (NEGATIVE) H 02/12/17 22:20 Urine Glucose (UA) Negative (NEGATIVE) 02/12/17 22:20 Urine Ketones Negative (NEGATIVE) 02/12/17 22:20 Urine Blood Negative (NEGATIVE) 02/12/17 22:20 Urine Nitrite Negative (NEGATIVE) 02/12/17 22:20 Urine Bilirubin 2.0 (NEGATIVE) 02/12/17 22:20 Urine Urobilinogen 4.0 e.u/dl E.U./dl (0.2-1.0) H 02/12/17 22:20 Ur Leukocyte Esterase Negative (NEGATIVE) 02/12/17 22:20 Urine RBC 2 /hpf (0-3) 02/12/17 22:20 Urine WBC None /hpf (3-5) 02/12/17 22:20 Urine Mucus Few 02/12/17 22:20 U Random Total Protein 91 mg/dl (5-11.9) H 02/12/17 22:50 Ur Random Sodium 8 MMOL/L 02/12/17 22:50 Ur Random Potassium 57.2 MMOL/L 02/12/17 22:50 Ur Random Chloride 18 MMOL/L 02/12/17 22:50 Urine Creatinine 250.0 mg/dL 02/12/17 22:50 Random Vancomycin 6.999 ug/ml 02/13/17 05:30 Opiates Screen Positive ng/ml (IGIGET=480) 02/13/17 10:00 Methadone Screen Positive ng/ml (WVCNXQ=111) 02/13/17 10:00 Barbiturate Screen Negative ng/ml (SIUIHR=515) 02/13/17 10:00 Phencyclidine Screen Negative ng/ml (CUTOFF=25) 02/13/17 10:00 Ur Amphetamines Screen Negative ng/ml (MSFVUY=373) 02/13/17 10:00 MDMA (Ecstasy) Screen Negative ng/ml (BFMPPA=474) 02/13/17 10:00 Benzodiazepines Screen Negative ng/ml (PGOXQV=031) 02/13/17 10:00 Cocaine Screen Negative ng/ml (OJVUPA=031) 02/13/17 10:00 U Marijuana (THC) Screen Negative ng/ml (CUTOFF=50) 02/13/17 10:00 Blood Type A POSITIVE 02/12/17 13:59 Antibody Screen Negative 02/12/17 13:37 labs noted Assessment Plan - Diagnosis (1) Opioid withdrawal Status: Acute (2) Pain management Status: Acute - Plan Plan: Continue pain medication F/U with editor & co founder to start slow taper over many months.
[2017-02-13] MEDS: HEPARIN - 25,000 UNIT in SODIUM CHLORIDE 495 ML IV SCH (15:14)
[2017-02-13] MEDS: SODIUM CHLORIDE 1,000 ML IV SCH (15:19)
--- NOTE | 2017-02-13 16:04 | CONS ---
DATE OF CONSULTATION: DATE OF DICTATION: 02/13/2017 INFECTIOUS DISEASE CONSULTATION HISTORY OF PRESENT ILLNESS: The patient is a 76-year-old female evaluated for septic shock. The patient was brought to the emergency room after her home health aid reported worsening confusion and fever at home. Patient has a history of chronic venous stasis, dermatitis, and chronic venous stasis ulcerations. She was recently prescribed Augmentin for infected leg ulcers. She did not complete the course, and may have been noncompliant with the medication. She complained of worsening pain in her lower extremities bilaterally. Her home health aid noted her to become increasing confused and febrile. In the emergency room, her temperature was 103 and white blood cell count 21,000. Her course was fairly complicated by rapid atrial fibrillation with a heart rate of 130, hypotension, and lactic acidosis. She was admitted to the intensive care unit where she was empirically treated with vancomycin and Zosyn for presumed sepsis. At the present time, she is awake and responsive. Home health aid present at the time of the examination reports that her mental status has improved. She has no complaint of lower extremity pains at the present time but has been medicated with pain medicine. She denies any chest pain, shortness of breath, cough, sputum production, dysuria, or hematuria. No reports of vomiting or diarrhea. PAST MEDICAL HISTORY: Positive for chronic venous stasis dermatitis and ulcerations of the lower extremities, atrial fibrillation, hypertension, stroke. Diabetes mellitus, and chronic low back pain on methadone. PAST SURGICAL HISTORY: Status post appendectomy. ALLERGIES: CODEINE. MEDICATION: Include Tylenol, vancomycin, Zosyn, heparin, Lopressor, Dilaudid, Protonix. SOCIAL HISTORY: Lives at home, has a home health aid. Positive history of tobacco use. No history of drug abuse or illicit drug use. SYSTEMS REVIEW: Neurologic: Positive for confusion, no loss of consciousness, seizure activity, or focal weakness. Cardiac: Positive for atrial fibrillation. No chest pain or palpitations. Respiratory: Negative dyspnea, cough or sputum production. Gastrointestinal: Negative vomiting or diarrhea. Genitourinary: Negative for urinary tract infection. LABORATORY DATA: White blood cell count 21.7 with left shift, hematocrit 26.9, platelet count 247. BUN 26, creatinine 1.4. Urinalysis negative. No white cells. Chest x-ray, no acute infiltrate. PHYSICAL EXAMINATION: General: She is awake and responsive. She is in no acute distress. Not acutely toxic appearing. She is morbidly obese. Vital signs: Temperature 99.1, T-max 103.5, blood pressure 190/58, pulse 98 regular, respirations 16 per minute. HEENT: Sclerae anicteric. Cardiovascular: Heart sounds irregular S1, S2. Respiratory: Lungs clear bilaterally, no rhonchi, rales, or wheezing. Abdomen: Soft. Obese. No tenderness elicited. Extremities: Bilateral lower extremity edema. Bilateral lower extremity chronic venous stasis ulcerations with drainage. Erythema involving both lower extremities and extending from the lower leg to the thigh. There appears to be lymphangitis with erythema involving the medial aspects of both thighs. In addition there is some erythema noted along the right lateral thigh. The areas are warm to touch, no crepitus or fluctuance. IMPRESSION: 1. Sepsis/septic shock. 2. Sepsis secondary to skin source. 3. Bilateral lower extremity cellulitis and infected chronic venous stasis ulcers. 4. Toxic metabolic encephalopathy. 5. History of methicillin resistant Staphylococcus aureus wound infection. 6. High grade fever and leukocytosis. 7. Chronic back pain on methadone. Continue ICU monitoring. Hemodynamic support. Pending cultures. Empiric antibiotic coverage with Zosyn 4.5 g IV piggyback every 8 hours. Vancomycin 1 g IV piggyback every 12 hours. Local wound care. Contact precautions for MRSA, previously isolated from the wound. Will follow. Thank you for the kind referral. Critical care time 35 minutes. NORMA WITT M.D. TONA/[id number]
--- NOTE | 2017-02-13 17:23 | PN ---
Progress Note (short form) - Note Progress Note: Vascular Surgery Pt seen and examined. Dressings changed. Bilateral lower ext venous stasis Some slough on wounds. Start santyl to all ulcers. Wrap with compression with kylie bandage daily Adarsh Loving DO
[2017-02-13] MEDS ORDERED: PIPERACILLIN/TAZOB 4.5 GM 100 ML IVPB SCH (18:00)
[2017-02-13] MEDS: PIPERACILLIN/TAZOB 4.5 GM 100 ML IVPB SCH (18:46)
--- NOTE | 2017-02-13 19:27 | CON.CARD ---
Cardiology Consult (text) - Consultation Consultation Note: CC: pain, afib 76 yo chronically ill woman with h/o a fib and CVA 6 mo ago at [facility] (possibly on xarelto), HTN, chronic venous stasis ulcers/lymphedema followed by wound care, chronic pain 2/2 LE ulcers with h/o of opioid abuse, asthma, p/w worsening pain/ confusion. states that her pain has recently worsened. On day of presentation he had noticed worsened erythema and purulent drainage from LE wounds. Patient also with worsened lethargy and confusion. At baseline has h/o of poor memory. Also with dysphagia since stroke. However, currently signicantly confused and altered. also states he sought ER evaluation because they had run out of pain medications. Has history of afib for at least a year. Prior ER notes document that PCP had not recommended xarelto, reason not clarified in note. However, current records show xarelto listed as outpatient med. asked multiple times and he was very clear that he had never heard of xarelto, rivaroxaban or any other blood thinner that I listed. He was very sure she was not on a blood thinner. Denies hx of falls or bleeding endorses adherence to lasix, no change in dose. Showed him her edema at abdomen and states that she has had that for months. + early satiety and recent poor po intake. no cp, palps, dizziness, pnd, orthopnea. + fevers, no chills or sweats. no n/v/d, headache, cough, congestion. pmhx/pshx: per hpi family hx: father of unknown heart problem social hx: former smoker, no etoh, hx of abuse of prescription pain medications - on methadone maintenance ros: per hpi Ambulatory Orders Furosemide [Lasix -] 40 mg PO DAILY 02/12/17 Methadone [Dolophine -] 20 mg PO Q8H 02/12/17 Metoprolol Tartrate [Lopressor -] 25 mg PO BID 02/12/17 Morphine Sulfate [Morphine Sulfate ER] 15 mg PO Q4H 02/12/17 Nebivolol HCl [Bystolic] 10 mg PO DAILY 02/12/17 Rivaroxaban [Xarelto -] 15 mg PO DAILY 02/12/17 Spironolactone 50 mg PO DAILY 02/12/17 Current Medications Acetaminophen (Tylenol -) 650 mg PO Q6H PRN PRN Reason: FEVER OR PAIN Chlorhexidine Gluconate (Hibiclens For Decolonization -) 1 applic TP HS [facility] Collagenase (Santyl -) 1 applic TP DAILY [facility] Heparin Sodium (Porcine) (Heparin -) 1,000 unit IVPUSH PRN PRN PRN Reason: Heparin Heparin Sodium (Porcine) (Heparin -) 5,000 unit IVPUSH PRN PRN PRN Reason: Heparin Hydromorphone HCl (Dilaudid Injection -) 2 mg IVPUSH Q4H PRN PRN Reason: PAIN LEVEL 6-10 Last Admin: 02/13/17 17:48 Dose: 2 mg Heparin Sodium (Porcine) 25, (000 unit/ Sodium Chloride) 500 mls @ 20 mls/hr IV TITR [facility]; 1,000 UNIT/HR PRN Reason: Protocol Last Admin: 02/13/17 15:14 Dose: 20 mls/hr Sodium Chloride (Normal Saline -) 1,000 mls @ 100 mls/hr IV ASDIR [facility] Last Admin: 02/13/17 15:19 Dose: Not Given Vancomycin HCl (Vancomycin (Pre-Docked)) 250 mls @ 200 mls/hr IVPB BID@0000, 1200 [facility] Piperacillin Sod/Tazobactam Sod (Zosyn 4.5gm Ivpb (Pre-Docked)) 100 mls @ 200 mls/hr IVPB Q8H-IV [facility] PRN Reason: Protocol Last Admin: 02/13/17 18:46 Dose: 200 mls/hr Metoprolol Tartrate (Lopressor -) 25 mg PO BID [facility] Mupirocin (Bactroban Ointment (For Decolonization) -) 1 applic NS BID [facility] Stop: 02/17/17 21:59 Ranitidine HCl (Zantac -) 150 mg PO DAILY [facility] Vital Signs Period Temp Pulse Resp BP Sys/Grant Pulse Ox Last 24 Hr 97.5 F-99.1 F 85-116 13-22 86-121/45-61 98-98 Intake & Output 02/11/17 02/12/17 02/13/17 02/14/17 07:59 07:59 07:59 07:59 Intake Total 2000 1400 Output Total 300 430 Balance 1700 970 Weight 252 lb 6 oz Agitated, moaning aaox1 JVD mild elevation, neck supple bibasilar dullness, poor effort irregularly irregular. nl s1, s2, 1/6 sys murmur at lsb. + bs soft nt nd 1-2+ tense dependent edema to mid back erythema of LE. wounds covered in dressings diminshed dp/pt no carotid bruits + diaphoresis, no jaundice. CBC, BMP 02/13/17 05:30 02/13/17 05:30 Laboratory Tests 02/12/17 02/12/17 02/12/17 13:37 13:37 13:37 Band Neutrophils 19.0 H INR 1.69 H Sodium 131 L Hemoglobin A1c % Lactic Acid Magnesium Creatine Kinase 1212 H D CK-MB (CK-2) 8.459 H Troponin I 0.23 H Albumin 1.8 L D 02/12/17 02/12/17 02/13/17 13:37 17:25 05:30 Band Neutrophils INR Sodium Hemoglobin A1c % Lactic Acid 7.303 H* Magnesium 1.9 Creatine Kinase 1686 H D CK-MB (CK-2) Troponin I 0.23 H Albumin 02/13/17 02/13/17 02/13/17 05:30 05:30 20:50 Band Neutrophils INR Sodium Hemoglobin A1c % 8.6 H Lactic Acid 3.021 H* Magnesium Creatine Kinase 1654 H CK-MB (CK-2) Troponin I 0.13 H Albumin EKG: coarse afib vs. flutter with rvr. non-specific t wave abnormalities. no acute ischemic changes/ tele: afib 100's-110's cxr: poor quality, poor inspiration 76 yo chronically ill woman with h/o a fib and CVA 6 mo ago at [facility] (possibly on xarelto), HTN, chronic venous stasis ulcers/lymphedema followed by wound care, chronic pain 2/2 LE ulcers with h/o of opioid abuse, asthma, p/w worsening pain/ confusion. afib - currently reasonable rate control given clinical condition on metoprolol - Would clarify with pmd whether she has been on AC as outpatient, conflicting reports. - con't heparin drip for now. Ordered head CT given altered mental status, h/o CVA. - echo ordered. LE edema/anasarca. - high suspicion for underlying diastolic dysfunction and chronic volume overload. Currently hypotensive and infected so ok to hold diuretics, but will need diuresis once hemodynamically stable and infection controlled. - echo as above. Increased troponin - Borderline elevation in setting of demand, not consistent with ACS. May have underlying CAD and can consider risk/benefit of ischemic work up once acute issues stabilize. - CK elevation out of proportion, consider skeletal muscle source. Compartment syndrome, rhabdo etc... Ongoing management per pmd, vascular. chronic venous stasis ulcers - per pmd, id, vascular HTN - currently hypotensive. tolerating metoprolol for rate control h/o CVA - AC as above. would start statin
[2017-02-13] MEDS: CHLORHEXIDINE GLUCONATE 4% CLEANSER FOR DECOLONIZATION TP SCH (22:26)
[2017-02-13] MEDS: VANCOMYCIN 1 GRAM (PRE-DOCKED) 250 ML IVPB SCH (22:35)
[2017-02-13] MEDS: COLLAGENASE CLOSTRIDIUM HIST. 30 GRAMS TUBE TP SCH (22:36)
[2017-02-13] MEDS: HEPARIN NA (PORCINE) 5,000 UNITS/ML 1ML VIAL IVPUSH PRN (22:36)
[2017-02-14] MEDS: VANCOMYCIN 1 GRAM (PRE-DOCKED) 250 ML IVPB SCH ×2 (00:17→18:30)
[2017-02-14] MEDS: PIPERACILLIN/TAZOB 4.5 GM 100 ML IVPB SCH ×2 (02:15→10:30)
[2017-02-14] MEDS: HYDROmorphone HCL CARPU-JECT 2 MG/1 ML DISP.SYRIN IVPUSH PRN ×2 (04:40→10:30)
[2017-02-14 07:45] LABS: BASOPHIL 0.2 % (0-2.0); EOSINOPHIL 0.7 % (0-4.5); MCH 23.8 pg (25.7-33.7); MCHC 30.5 g/dl (32.0-36.0); MEAN CELL VOLUME 78.3 fl (80-96); MEAN PLT VOLUME 8.8 fl (7.5-11.1); NEUTROPHILS 94.6 % (42.8-82.8); PLATELET COUNT 203 K/MM3 (134-434); RDW 20.3 % (11.6-15.6); WHITE BLOOD COUNT 20.2 K/mm3 (4.0-10.0)
[2017-02-14] MEDS: HEPARIN NA (PORCINE) 5,000 UNITS/ML 1ML VIAL IVPUSH PRN ×2 (08:34→16:58)
[2017-02-14] MEDS: HEPARIN - 25,000 UNIT in SODIUM CHLORIDE 495 ML IV SCH ×2 (08:35→16:58)
[2017-02-14] MEDS ORDERED: PANTOPRAZOLE 20 MG TABLET (FP) PO SCH (10:00)
[2017-02-14] MEDS: RANITIDINE HCL 150 MG TABLET (FP) PO SCH (10:29)
[2017-02-14] MEDS: METOPROLOL TARTRATE 25 MG TABLET (FP) PO SCH ×2 (10:29→22:53)
--- NOTE | 2017-02-14 12:17 | PN ---
Progress Note, Physician History of Present Illness: Now on telemetry unit Awake but confused No complaints offered Afebrile WBC remains elevated - Current Medication List Current Medications: Active Medications Acetaminophen (Tylenol -) 650 mg PO Q6H PRN PRN Reason: FEVER OR PAIN Atorvastatin Calcium (Lipitor -) 40 mg PO HS [facility] Chlorhexidine Gluconate (Hibiclens For Decolonization -) 1 applic TP HS [facility] Last Admin: 02/13/17 22:26 Dose: Not Given Collagenase (Santyl -) 1 applic TP DAILY [facility] Last Admin: 02/13/17 22:36 Dose: 1 applic Heparin Sodium (Porcine) (Heparin -) 1,000 unit IVPUSH PRN PRN PRN Reason: Heparin Heparin Sodium (Porcine) (Heparin -) 5,000 unit IVPUSH PRN PRN PRN Reason: Heparin Last Admin: 02/14/17 08:34 Dose: 5,000 unit Hydromorphone HCl (Dilaudid Injection -) 2 mg IVPUSH Q4H PRN PRN Reason: PAIN LEVEL 6-10 Last Admin: 02/14/17 10:30 Dose: 2 mg Heparin Sodium (Porcine) 25, (000 unit/ Sodium Chloride) 500 mls @ 20 mls/hr IV TITR [facility]; 1,000 UNIT/HR PRN Reason: Protocol Last Admin: 02/14/17 08:35 Dose: 26 mls/hr Sodium Chloride (Normal Saline -) 1,000 mls @ 100 mls/hr IV ASDIR [facility] Last Admin: 02/13/17 15:19 Dose: Not Given Vancomycin HCl (Vancomycin (Pre-Docked)) 250 mls @ 200 mls/hr IVPB BID@0000, 1200 [facility] Last Admin: 02/14/17 00:17 Dose: Not Given Piperacillin Sod/Tazobactam Sod (Zosyn 4.5gm Ivpb (Pre-Docked)) 100 mls @ 200 mls/hr IVPB Q8H-IV [facility] PRN Reason: Protocol Last Admin: 02/14/17 10:30 Dose: 200 mls/hr Methadone HCl (Dolophine -) 20 mg PO TID [facility] Metoprolol Tartrate (Lopressor -) 25 mg PO BID [facility] Last Admin: 02/14/17 10:29 Dose: 25 mg Mupirocin (Bactroban Ointment (For Decolonization) -) 1 applic NS BID [facility] Stop: 02/17/17 21:59 Last Admin: 02/13/17 22:26 Dose: Not Given Ranitidine HCl (Zantac -) 150 mg PO DAILY [facility] Last Admin: 02/14/17 10:29 Dose: 150 mg - Objective Vital Signs: Vital Signs Temperature 97.8 F 02/14/17 09:00 Pulse Rate 105 H 02/14/17 09:00 Respiratory Rate 18 02/14/17 09:00 Blood Pressure 110/70 02/14/17 09:00 O2 Sat by Pulse Oximetry (%) 94 L 02/14/17 09:00 Constitutional: Yes: No Distress, Obese Cardiovascular: Yes: Regular Rate and Rhythm, S1, S2 Respiratory: Yes: Diminished Gastrointestinal: Yes: Normal Bowel Sounds, Soft. No: Tenderness Extremities: Yes: Other (+ LE ulcers Still with significant erythema/ warmth / tenderness LE B/L) Labs: CBC, BMP 02/14/17 05:35 02/13/17 05:30 INR, PTT INR 1.54 (0.82-1.09) H 02/13/17 05:30 Assessment/Plan Sepsis/ septic shock- improved Infected chronic venous stasis ulcers Bilateral LE cellulitis Toxic metabolic encephalopathy Leukocytosis Continue zosyn/ vancomycin Local wound care
[2017-02-14] MEDS: METHADONE HCL 10 MG TABLET PO SCH ×2 (13:41→22:53)
--- NOTE | 2017-02-14 17:21 | PN ---
Progress Note, Physician History of Present Illness: No new complaints - Current Medication List Current Medications: Active Medications Acetaminophen (Tylenol -) 650 mg PO Q6H PRN PRN Reason: FEVER OR PAIN Atorvastatin Calcium (Lipitor -) 40 mg PO HS [facility] Chlorhexidine Gluconate (Hibiclens For Decolonization -) 1 applic TP HS [facility] Last Admin: 02/13/17 22:26 Dose: Not Given Collagenase (Santyl -) 1 applic TP DAILY [facility] Last Admin: 02/13/17 22:36 Dose: 1 applic Heparin Sodium (Porcine) (Heparin -) 1,000 unit IVPUSH PRN PRN PRN Reason: Heparin Heparin Sodium (Porcine) (Heparin -) 5,000 unit IVPUSH PRN PRN PRN Reason: Heparin Last Admin: 02/14/17 16:58 Dose: 5,000 unit Hydromorphone HCl (Dilaudid Injection -) 2 mg IVPUSH Q4H PRN PRN Reason: PAIN LEVEL 6-10 Last Admin: 02/14/17 10:30 Dose: 2 mg Heparin Sodium (Porcine) 25, (000 unit/ Sodium Chloride) 500 mls @ 20 mls/hr IV TITR [facility]; 1,000 UNIT/HR PRN Reason: Protocol Last Admin: 02/14/17 16:58 Dose: 29 mls/hr Sodium Chloride (Normal Saline -) 1,000 mls @ 100 mls/hr IV ASDIR [facility] Last Admin: 02/13/17 15:19 Dose: Not Given Vancomycin HCl (Vancomycin (Pre-Docked)) 250 mls @ 200 mls/hr IVPB BID@0000, 1200 [facility] Last Admin: 02/14/17 00:17 Dose: Not Given Piperacillin Sod/Tazobactam Sod (Zosyn 4.5gm Ivpb (Pre-Docked)) 100 mls @ 200 mls/hr IVPB Q8H-IV [facility] PRN Reason: Protocol Last Admin: 02/14/17 10:30 Dose: 200 mls/hr Methadone HCl (Dolophine -) 20 mg PO TID [facility] Last Admin: 02/14/17 13:41 Dose: 20 mg Metoprolol Tartrate (Lopressor -) 25 mg PO BID [facility] Last Admin: 02/14/17 10:29 Dose: 25 mg Morphine Sulfate (Ms Contin -) 15 mg PO TID [facility] Mupirocin (Bactroban Ointment (For Decolonization) -) 1 applic NS BID [facility] Stop: 02/17/17 21:59 Last Admin: 02/13/17 22:26 Dose: Not Given Ranitidine HCl (Zantac -) 150 mg PO DAILY [facility] Last Admin: 02/14/17 10:29 Dose: 150 mg - Objective Vital Signs: Vital Signs Temperature 98.7 F 02/14/17 15:47 Pulse Rate 110 H 02/14/17 15:47 Respiratory Rate 18 02/14/17 15:47 Blood Pressure 104/56 02/14/17 15:47 O2 Sat by Pulse Oximetry (%) 94 L 02/14/17 09:00 Cardiovascular: Yes: WNL, Regular Rate and Rhythm Respiratory: Yes: WNL, Regular, CTA Bilaterally Gastrointestinal: Yes: WNL, Normal Bowel Sounds, Soft Labs: CBC, BMP 02/14/17 05:35 02/13/17 05:30 INR, PTT INR 1.54 (0.82-1.09) H 02/13/17 05:30 Problem List - Problems (1) Atrial fibrillation with rapid ventricular response Code(s): I48.91 - UNSPECIFIED ATRIAL FIBRILLATION (2) HTN (hypertension) Code(s): I10 - ESSENTIAL (PRIMARY) HYPERTENSION (3) Sepsis Code(s): A41.9 - SEPSIS, UNSPECIFIED ORGANISM (4) Chronic cutaneous venous stasis ulcer Code(s): I83.009 - VARICOSE VEINS OF UNSP LOWER EXTREMITY W ULCER OF UNSP SITE (5) Chronic pain Code(s): G89.29 - OTHER CHRONIC PAIN (6) Diabetes Code(s): E11.9 - TYPE 2 DIABETES MELLITUS WITHOUT COMPLICATIONS
--- NOTE | 2017-02-14 17:39 | PN ---
Progress Note, Physician History of Present Illness: No complaints No events TEle: afib at 107/min - Current Medication List Current Medications: Active Medications Acetaminophen (Tylenol -) 650 mg PO Q6H PRN PRN Reason: FEVER OR PAIN Atorvastatin Calcium (Lipitor -) 40 mg PO HS [facility] Chlorhexidine Gluconate (Hibiclens For Decolonization -) 1 applic TP HS [facility] Last Admin: 02/13/17 22:26 Dose: Not Given Collagenase (Santyl -) 1 applic TP DAILY [facility] Last Admin: 02/13/17 22:36 Dose: 1 applic Heparin Sodium (Porcine) (Heparin -) 1,000 unit IVPUSH PRN PRN PRN Reason: Heparin Heparin Sodium (Porcine) (Heparin -) 5,000 unit IVPUSH PRN PRN PRN Reason: Heparin Last Admin: 02/14/17 16:58 Dose: 5,000 unit Hydromorphone HCl (Dilaudid Injection -) 2 mg IVPUSH Q4H PRN PRN Reason: PAIN LEVEL 6-10 Last Admin: 02/14/17 10:30 Dose: 2 mg Heparin Sodium (Porcine) 25, (000 unit/ Sodium Chloride) 500 mls @ 20 mls/hr IV TITR [facility]; 1,000 UNIT/HR PRN Reason: Protocol Last Admin: 02/14/17 16:58 Dose: 29 mls/hr Sodium Chloride (Normal Saline -) 1,000 mls @ 100 mls/hr IV ASDIR [facility] Last Admin: 02/13/17 15:19 Dose: Not Given Vancomycin HCl (Vancomycin (Pre-Docked)) 250 mls @ 200 mls/hr IVPB BID@0000, 1200 [facility] Last Admin: 02/14/17 00:17 Dose: Not Given Piperacillin Sod/Tazobactam Sod (Zosyn 4.5gm Ivpb (Pre-Docked)) 100 mls @ 200 mls/hr IVPB Q8H-IV [facility] PRN Reason: Protocol Last Admin: 02/14/17 10:30 Dose: 200 mls/hr Methadone HCl (Dolophine -) 20 mg PO TID [facility] Last Admin: 02/14/17 13:41 Dose: 20 mg Metoprolol Tartrate (Lopressor -) 25 mg PO BID [facility] Last Admin: 02/14/17 10:29 Dose: 25 mg Morphine Sulfate (Ms Contin -) 15 mg PO TID [facility] Mupirocin (Bactroban Ointment (For Decolonization) -) 1 applic NS BID [facility] Stop: 02/17/17 21:59 Last Admin: 02/13/17 22:26 Dose: Not Given Ranitidine HCl (Zantac -) 150 mg PO DAILY [facility] Last Admin: 02/14/17 10:29 Dose: 150 mg - Objective Vital Signs: Vital Signs Temperature 98.7 F 02/14/17 15:47 Pulse Rate 110 H 02/14/17 15:47 Respiratory Rate 18 02/14/17 15:47 Blood Pressure 104/56 02/14/17 15:47 O2 Sat by Pulse Oximetry (%) 94 L 02/14/17 09:00 Constitutional: Yes: No Distress (lethargic) Eyes: Yes: WNL HENT: Yes: WNL Neck: Yes: WNL Cardiovascular: Yes: Pulse Irregular Respiratory: Yes: Regular, CTA Bilaterally Gastrointestinal: Yes: Abdomen, Obese Extremities: Yes: Other (Edema and dressing intact) Edema: LLE: 2+, RLE: 2+ Labs: CBC, BMP 02/14/17 05:35 02/13/17 05:30 INR, PTT INR 1.54 (0.82-1.09) H 02/13/17 05:30 Assessment/Plan EKG: coarse afib vs. flutter with rvr. non-specific t wave abnormalities. no acute ischemic changes/ tele: afib 100's-110's cxr: poor quality, poor inspiration 76 yo chronically ill woman with h/o a fib and CVA 6 mo ago at [facility] (possibly on xarelto), HTN, chronic venous stasis ulcers/lymphedema followed by wound care, chronic pain 2/2 LE ulcers with h/o of opioid abuse, asthma, p/w worsening pain/ confusion. afib - currently reasonable rate control given clinical condition on metoprolol - Would clarify with pmd whether she has been on AC as outpatient, conflicting reports. - con't heparin drip for now (PTT goal 60-80sec). -Ordered head CT given altered mental status, h/o CVA. - echo ordered. LE edema/anasarca. - high suspicion for underlying diastolic dysfunction and chronic volume overload. Currently hypotensive and infected so ok to hold diuretics, but will need diuresis once hemodynamically stable and infection controlled. - echo as above. Increased troponin - Borderline elevation in setting of demand, not consistent with ACS. May have underlying CAD and can consider risk/benefit of ischemic work up once acute issues stabilize. - CK elevation out of proportion, consider skeletal muscle source. Compartment syndrome, rhabdo etc... Ongoing management per pmd, vascular. chronic venous stasis ulcers - per pmd, id, vascular HTN - currently hypotensive. tolerating metoprolol for rate control h/o CVA - AC as above. would start statin
[2017-02-14] MEDS: COLLAGENASE CLOSTRIDIUM HIST. 30 GRAMS TUBE TP SCH (18:30)
[2017-02-14] MEDS: MUPIROCIN 2% TOPICAL OINTMENT FOR DECOLONIZATION NS SCH (19:13)
[2017-02-14] MEDS: SODIUM CHLORIDE 1,000 ML IV SCH (19:14)
[2017-02-14] MEDS: ATORVASTATIN CA 40 MG TABLET (FP) PO SCH (22:52)
[2017-02-14] MEDS: morphine SO4 SUSTAINED ACTING 15 MG TABLET.SA PO SCH (22:52)
[2017-02-14] MEDS ORDERED: LINEZOLID 600 MG TABLET (RESTRICTED TO ID) PO ONE (23:42)
--- NOTE | 2017-02-14 23:42 | HOSP ---
Physical Examination Vital Signs: Vital Signs Temperature 99.4 F 02/14/17 18:00 Pulse Rate 109 H 02/14/17 18:00 Respiratory Rate 18 02/14/17 18:00 Blood Pressure 109/50 02/14/17 18:00 O2 Sat by Pulse Oximetry (%) 94 L 02/14/17 09:00 Constitutional: Yes: Other (agitated) Eyes: Yes: EOM Intact HENT: Yes: Atraumatic, Normocephalic Neck: Yes: Supple, Trachea Midline Cardiovascular: Yes: Pulse Irregular, S1, S2 Respiratory: Yes: Regular, Poor Air Entry Gastrointestinal: Yes: Soft, Abdomen, Obese. No: Tenderness Edema: Yes Edema: LLE: 2+, RLE: 2+ Peripheral Pulses: Left Radial: 2+, Right Radial: 2+ Wound/Incision: Yes: Dressing Dry and Intact (b/l lower extr) Neurological: Yes: Alert, Other (preexisting mildly slurred speech) Psychiatric: Yes: Alert, Oriented, Agitated Labs: CBC, BMP 02/14/17 05:35 02/13/17 05:30 Hospitalist Encounter Assessment: Called by nursing for central line placement at the request of primary team. Pt does not currently have peripheral access. No accessible veins visualized using vein finder or under ultrasound, patient would only allow evaluation of left arm. Denied evaluation for external or internal jugular access. Became agitated and refused placement of peripheral line and declined further evaluation. She wanted to speak to her , he did not seed cone picker the phone. Vancomycin was past due and zosyn was pending, switched to po linezolid 600mg and levaquin 750mg for one dose pending pharmacy approval for tonight. Pt was on heparin drip for afib which cannot be substituted with lovenox due to GFR of 29.9. As per notes, it was unclear if she had been on oral anticoagulation at home for afib. Outcome: Unable to find access, patient refused further evaluation Primary Physician Notified: Josie Braxton PMD Notified: 23:50 Recommendations/Interventions: Recommend: - f/u with ID consult for oral antibiotic approval/continuation - f/u oral anticoagulation with cardiology, as there is no access for heparin and low GFR for lovenox to be given. - IR consult for PICC line placement - increase po fluid intake Visit type - Emergency Visit Emergency Visit: No - New Patient This patient is new to me today: Yes Date on this admission: 02/15/17 - Critical Care Critical Care patient: No
[2017-02-14] MEDS ORDERED: LEVOFLOXACIN 250 MG TABLET (FP) PO ONE (23:51)
[2017-02-15] MEDS ORDERED: PICC LINE 8 ML FLUSH PROTOCOL IVPUSH PRN (00:20)
[2017-02-15] MEDS: CHLORHEXIDINE GLUCONATE 4% CLEANSER FOR DECOLONIZATION TP SCH ×2 (00:46→22:25)
[2017-02-15] MEDS: MUPIROCIN 2% TOPICAL OINTMENT FOR DECOLONIZATION NS SCH ×3 (01:04→22:24)
[2017-02-15] MEDS: PIPERACILLIN/TAZOB 4.5 GM 100 ML IVPB SCH ×3 (01:06→10:54)
[2017-02-15] MEDS: VANCOMYCIN 1 GRAM (PRE-DOCKED) 250 ML IVPB SCH ×2 (01:06→13:41)
[2017-02-15] MEDS: METHADONE HCL 10 MG TABLET PO SCH ×3 (06:16→22:42)
[2017-02-15] MEDS: morphine SO4 SUSTAINED ACTING 15 MG TABLET.SA PO SCH ×3 (06:25→22:41)
[2017-02-15 08:01] LABS: MCH 24.2 pg (25.7-33.7); MCHC 30.8 g/dl (32.0-36.0); MEAN CELL VOLUME 78.4 fl (80-96); MEAN PLT VOLUME 8.7 fl (7.5-11.1); PLATELET COUNT 217 K/MM3 (134-434); RDW 20.1 % (11.6-15.6)
[2017-02-15 08:41] LABS: ALBUMIN 1.4 g/dl (3.4-5.0); CALCIUM 7.7 mg/dL (8.5-10.1); COCKROFT - GAULT 62.7385; CREATININE 1.4 mg/dL (0.55-1.02)
[2017-02-15 08:43] LABS: BILIRUBIN,TOTAL 1.1 mg/dL (0.2-1.0); TOT PROT 5.5 g/dl (6.4-8.2)
--- NOTE | 2017-02-15 10:19 | PN ---
Progress Note, Physician History of Present Illness: IV Access lost, started on Lovenox SC No complaints Tele: Afib at 104 - Current Medication List Current Medications: Active Medications Acetaminophen (Tylenol -) 650 mg PO Q6H PRN PRN Reason: FEVER OR PAIN Atorvastatin Calcium (Lipitor -) 40 mg PO HS [facility] Last Admin: 02/14/17 22:52 Dose: 40 mg Chlorhexidine Gluconate (Hibiclens For Decolonization -) 1 applic TP HS [facility] Last Admin: 02/15/17 00:46 Dose: 1 applic Collagenase (Santyl -) 1 applic TP DAILY [facility] Last Admin: 02/14/17 18:30 Dose: 1 applic Enoxaparin Sodium (Lovenox -) 80 mg SQ BID [facility] Hydromorphone HCl (Dilaudid Injection -) 2 mg IVPUSH Q4H PRN PRN Reason: PAIN LEVEL 6-10 Last Admin: 02/14/17 10:30 Dose: 2 mg IV Flush (Picc Line Flush) 8 ml IVPUSH PRN PRN PRN Reason: Protocol Sodium Chloride (Normal Saline -) 1,000 mls @ 100 mls/hr IV ASDIR [facility] Last Admin: 02/14/17 19:14 Dose: Not Given Vancomycin HCl (Vancomycin (Pre-Docked)) 250 mls @ 200 mls/hr IVPB BID@0000, 1200 [facility] Last Admin: 02/15/17 01:06 Dose: Not Given Piperacillin Sod/Tazobactam Sod (Zosyn 4.5gm Ivpb (Pre-Docked)) 100 mls @ 200 mls/hr IVPB Q8H-IV [facility] PRN Reason: Protocol Last Admin: 02/15/17 02:25 Dose: Not Given Methadone HCl (Dolophine -) 20 mg PO TID [facility] Last Admin: 02/15/17 06:16 Dose: 20 mg Metoprolol Tartrate (Lopressor -) 25 mg PO BID [facility] Last Admin: 02/14/17 22:53 Dose: 25 mg Morphine Sulfate (Ms Contin -) 15 mg PO TID [facility] Last Admin: 02/15/17 06:25 Dose: 15 mg Mupirocin (Bactroban Ointment (For Decolonization) -) 1 applic NS BID [facility] Stop: 02/17/17 21:59 Last Admin: 02/15/17 01:04 Dose: Not Given Ranitidine HCl (Zantac -) 150 mg PO DAILY [facility] Last Admin: 02/14/17 10:29 Dose: 150 mg - Objective Vital Signs: Vital Signs Temperature 98.4 F 02/15/17 06:00 Pulse Rate 94 H 02/15/17 06:00 Respiratory Rate 18 02/15/17 06:00 Blood Pressure 112/74 02/15/17 06:00 O2 Sat by Pulse Oximetry (%) 93 L 02/14/17 21:00 Constitutional: Yes: No Distress Eyes: Yes: WNL HENT: Yes: WNL Neck: Yes: WNL Cardiovascular: Yes: Pulse Irregular Respiratory: Yes: CTA Bilaterally Edema: LLE: 2+, RLE: 2+ Labs: CBC, BMP 02/15/17 05:35 02/15/17 05:35 INR, PTT INR 1.54 (0.82-1.09) H 02/13/17 05:30 Assessment/Plan 76 yo chronically ill woman with h/o a fib and CVA 6 mo ago at [facility] (possibly on xarelto), HTN, chronic venous stasis ulcers/lymphedema followed by wound care, chronic pain 2/2 LE ulcers with h/o of opioid abuse, asthma, p/w worsening pain/ confusion. afib - currently reasonable rate control given clinical condition on metoprolol -Now on Lovenox (loss IV access) -Ordered head CT, but no result seen (?) - echo ordered (not done) LE edema/anasarca. - high suspicion for underlying diastolic dysfunction and chronic volume overload. Currently hypotensive and infected so ok to hold diuretics, but will need diuresis once hemodynamically stable and infection controlled. - echo as above. Increased troponin - Borderline elevation in setting of demand, not consistent with ACS. May have underlying CAD and can consider risk/benefit of ischemic work up once acute issues stabilize. - CK elevation out of proportion, consider skeletal muscle source. Compartment syndrome, rhabdo etc... Ongoing management per pmd, vascular. chronic venous stasis ulcers - per pmd, id, vascular HTN - currently hypotensive. tolerating metoprolol for rate control h/o CVA - AC as above. would start statin
[2017-02-15] MEDS ORDERED: PT OWN MED DRAWER 7, Y5N ONE (10:30)
[2017-02-15] MEDS: ACETAMINOPHEN 325 MG TABLET (FP) PO PRN (10:52)
[2017-02-15] MEDS: COLLAGENASE CLOSTRIDIUM HIST. 30 GRAMS TUBE TP SCH (10:53)
[2017-02-15] MEDS: METOPROLOL TARTRATE 25 MG TABLET (FP) PO SCH ×2 (10:53→22:42)
[2017-02-15] MEDS: RANITIDINE HCL 150 MG TABLET (FP) PO SCH (10:53)
[2017-02-15] MEDS: ENOXAPARIN NA (PORCINE) 80 MG/0.8 ML DISP.SYRIN SQ SCH ×2 (10:54→22:42)
[2017-02-15 12:19] LABS: HYPOCHROMIA 1+; PLATELET ESTIMATE ADEQUATE (NORMAL)
[2017-02-15 12:24] LABS: ANISOCYTOSIS 1+; POIKILOCYTOSIS FEW
--- NOTE | 2017-02-15 13:17 | PN ---
Progress Note, Physician History of Present Illness: More awake and alert Less confused C/O leg pain Temps down- afebrile WBC remains elevated BC (-) Lost IV access - Current Medication List Current Medications: Active Medications Acetaminophen (Tylenol -) 650 mg PO Q6H PRN PRN Reason: FEVER OR PAIN Last Admin: 02/15/17 10:52 Dose: 650 mg Atorvastatin Calcium (Lipitor -) 40 mg PO HS [facility] Last Admin: 02/14/17 22:52 Dose: 40 mg Chlorhexidine Gluconate (Hibiclens For Decolonization -) 1 applic TP HS [facility] Last Admin: 02/15/17 00:46 Dose: 1 applic Collagenase (Santyl -) 1 applic TP DAILY [facility] Last Admin: 02/15/17 10:53 Dose: 1 applic Enoxaparin Sodium (Lovenox -) 80 mg SQ BID [facility] Last Admin: 02/15/17 10:54 Dose: 80 mg Hydromorphone HCl (Dilaudid Injection -) 2 mg IVPUSH Q4H PRN PRN Reason: PAIN LEVEL 6-10 Last Admin: 02/14/17 10:30 Dose: 2 mg IV Flush (Picc Line Flush) 8 ml IVPUSH PRN PRN PRN Reason: Protocol Sodium Chloride (Normal Saline -) 1,000 mls @ 100 mls/hr IV ASDIR [facility] Last Admin: 02/14/17 19:14 Dose: Not Given Vancomycin HCl (Vancomycin (Pre-Docked)) 250 mls @ 200 mls/hr IVPB BID@0000, 1200 [facility] Last Admin: 02/15/17 01:06 Dose: Not Given Piperacillin Sod/Tazobactam Sod (Zosyn 4.5gm Ivpb (Pre-Docked)) 100 mls @ 200 mls/hr IVPB Q8H-IV [facility] PRN Reason: Protocol Last Admin: 02/15/17 10:54 Dose: Not Given Methadone HCl (Dolophine -) 20 mg PO TID [facility] Last Admin: 02/15/17 06:16 Dose: 20 mg Metoprolol Tartrate (Lopressor -) 25 mg PO BID [facility] Last Admin: 02/15/17 10:53 Dose: 25 mg Morphine Sulfate (Ms Contin -) 15 mg PO TID [facility] Last Admin: 02/15/17 06:25 Dose: 15 mg Mupirocin (Bactroban Ointment (For Decolonization) -) 1 applic NS BID [facility] Stop: 02/17/17 21:59 Last Admin: 02/15/17 10:53 Dose: Not Given Ranitidine HCl (Zantac -) 150 mg PO DAILY [facility] Last Admin: 02/15/17 10:53 Dose: 150 mg - Objective Vital Signs: Vital Signs Temperature 98.4 F 02/15/17 06:00 Pulse Rate 94 H 02/15/17 06:00 Respiratory Rate 18 02/15/17 06:00 Blood Pressure 112/74 02/15/17 06:00 O2 Sat by Pulse Oximetry (%) 93 L 02/14/17 21:00 Constitutional: Yes: No Distress Eyes: Yes: Conjunctiva Clear Cardiovascular: Yes: Regular Rate and Rhythm, S1, S2 Respiratory: Yes: CTA Bilaterally Gastrointestinal: Yes: Normal Bowel Sounds, Soft, Abdomen, Obese. No: Tenderness Extremities: Yes: Other (+ bilateral LE stasis ulcers + erythema/ warmth/ lymphangitis R >L) Labs: CBC, BMP 02/15/17 05:35 02/15/17 05:35 INR, PTT INR 1.54 (0.82-1.09) H 02/13/17 05:30 Assessment/Plan Sepsis/ septic shock- improved Infected chronic venous stasis ulcers Bilateral LE cellulitis/ lymphangitis R>L Toxic metabolic encephalopathy Leukocytosis zosyn/ vancomycin on hold pending re-est IV access Local wound care Discussed with son at bedside
[2017-02-15] MEDS: SODIUM CHLORIDE 1,000 ML IV SCH (14:58)
[2017-02-15] MEDS: LEVOFLOXACIN 500 MG TABLET (FP) PO SCH (16:00)
[2017-02-15] MEDS: ATORVASTATIN CA 40 MG TABLET (FP) PO SCH (22:42)
--- NOTE | 2017-02-15 23:44 | PN ---
Progress Note, Physician History of Present Illness: Pt has no IV access - Current Medication List Current Medications: Active Medications Acetaminophen (Tylenol -) 650 mg PO Q6H PRN PRN Reason: FEVER OR PAIN Last Admin: 02/15/17 10:52 Dose: 650 mg Atorvastatin Calcium (Lipitor -) 40 mg PO HS [facility] Last Admin: 02/15/17 22:42 Dose: 40 mg Chlorhexidine Gluconate (Hibiclens For Decolonization -) 1 applic TP HS [facility] Last Admin: 02/15/17 00:46 Dose: 1 applic Collagenase (Santyl -) 1 applic TP DAILY [facility] Last Admin: 02/15/17 10:53 Dose: 1 applic Enoxaparin Sodium (Lovenox -) 80 mg SQ BID [facility] Last Admin: 02/15/17 22:42 Dose: 80 mg Hydromorphone HCl (Dilaudid Injection -) 2 mg IVPUSH Q4H PRN PRN Reason: PAIN LEVEL 6-10 Last Admin: 02/14/17 10:30 Dose: 2 mg IV Flush (Picc Line Flush) 8 ml IVPUSH PRN PRN PRN Reason: Protocol Sodium Chloride (Normal Saline -) 1,000 mls @ 100 mls/hr IV ASDIR [facility] Last Admin: 02/15/17 14:58 Dose: Not Given Levofloxacin (Levaquin -) 500 mg PO DAILY [facility] Last Admin: 02/15/17 16:00 Dose: 500 mg Methadone HCl (Dolophine -) 20 mg PO TID [facility] Last Admin: 02/15/17 22:42 Dose: 20 mg Metoprolol Tartrate (Lopressor -) 25 mg PO BID [facility] Last Admin: 02/15/17 22:42 Dose: 25 mg Morphine Sulfate (Ms Contin -) 15 mg PO TID [facility] Last Admin: 02/15/17 22:41 Dose: 15 mg Mupirocin (Bactroban Ointment (For Decolonization) -) 1 applic NS BID [facility] Stop: 02/17/17 21:59 Last Admin: 02/15/17 10:53 Dose: Not Given Ranitidine HCl (Zantac -) 150 mg PO DAILY [facility] Last Admin: 02/15/17 10:53 Dose: 150 mg - Objective Vital Signs: Vital Signs Temperature 97.6 F 02/15/17 20:59 Pulse Rate 97 H 02/15/17 20:59 Respiratory Rate 18 02/15/17 20:59 Blood Pressure 135/68 02/15/17 20:59 O2 Sat by Pulse Oximetry (%) 98 02/15/17 09:00 Constitutional: Yes: Well Nourished Neck: Yes: Supple Cardiovascular: Yes: Pulse Irregular Respiratory: Yes: Diminished Gastrointestinal: Yes: Normal Bowel Sounds, Abdomen, Obese Extremities: Yes: Other ((+) chronic leg ulcers/erythema/ulcers) Labs: CBC, BMP 02/15/17 05:35 02/15/17 05:35 INR, PTT INR 1.54 (0.82-1.09) H 02/13/17 05:30 Problem List - Problems (1) Sepsis Assessment/Plan: Cellulitis/leg uclers Pt for PIC line insertion in am Slight increase in wbc Cont IV vanco/zosyn Cont wound care Code(s): A41.9 - SEPSIS, UNSPECIFIED ORGANISM (2) Altered mental state Assessment/Plan: Improving Probably combination of metabolic vs infectious encephalopathy Code(s): R41.82 - ALTERED MENTAL STATUS, UNSPECIFIED (3) Atrial fibrillation with rapid ventricular response Assessment/Plan: Unclear if pt was on xarelto Pt now on lovenox due to no iv access Cont metoprolol Code(s): I48.91 - UNSPECIFIED ATRIAL FIBRILLATION (4) Lymphedema of both lower extremities Code(s): I89.0 - LYMPHEDEMA, NOT ELSEWHERE CLASSIFIED (5) Chronic cutaneous venous stasis ulcer Code(s): I83.009 - VARICOSE VEINS OF UNSP LOWER EXTREMITY W ULCER OF UNSP SITE (6) Chronic pain Assessment/Plan: Cont MS contin Pt also started on diluadid Cont methadone Code(s): G89.29 - OTHER CHRONIC PAIN (7) Diabetes Code(s): E11.9 - TYPE 2 DIABETES MELLITUS WITHOUT COMPLICATIONS (8) HTN (hypertension) Code(s): I10 - ESSENTIAL (PRIMARY) HYPERTENSION (9) Morbid obesity Code(s): E66.01 - MORBID (SEVERE) OBESITY DUE TO EXCESS CALORIES
[2017-02-16] MEDS: morphine SO4 SUSTAINED ACTING 15 MG TABLET.SA PO SCH ×3 (05:42→23:34)
[2017-02-16] MEDS: METHADONE HCL 10 MG TABLET PO SCH ×3 (05:42→23:32)
[2017-02-16 07:51] LABS: MCHC 30.8 g/dl (32.0-36.0); MEAN PLT VOLUME 8.7 fl (7.5-11.1); PLATELET COUNT 242 K/MM3 (134-434); RDW 20.2 % (11.6-15.6); WHITE BLOOD COUNT 25.9 K/mm3 (4.0-10.0)
[2017-02-16 07:52] LABS: ALBUMIN 1.3 g/dl (3.4-5.0); BILIRUBIN,TOTAL 0.9 mg/dL (0.2-1.0); CALCIUM 7.8 mg/dL (8.5-10.1); COCKROFT - GAULT 58.5565; CREATININE 1.5 mg/dL (0.55-1.02); TOT PROT 5.4 g/dl (6.4-8.2)
[2017-02-16] MEDS: LEVOFLOXACIN 500 MG TABLET (FP) PO SCH (11:50)
[2017-02-16] MEDS: MUPIROCIN 2% TOPICAL OINTMENT FOR DECOLONIZATION NS SCH ×2 (11:50→23:34)
[2017-02-16] MEDS: METOPROLOL TARTRATE 25 MG TABLET (FP) PO SCH ×2 (11:50→23:35)
[2017-02-16] MEDS: COLLAGENASE CLOSTRIDIUM HIST. 30 GRAMS TUBE TP SCH (11:51)
[2017-02-16] MEDS: RANITIDINE HCL 150 MG TABLET (FP) PO SCH (11:51)
[2017-02-16 12:06] LABS: PLATELET ESTIMATE ADEQUATE (NORMAL)
[2017-02-16] MEDS: ENOXAPARIN NA (PORCINE) 100 MG/1 ML DISP.SYRIN SQ SCH ×2 (14:31→23:35)
--- NOTE | 2017-02-16 14:37 | PN ---
Progress Note, Physician History of Present Illness: Awake, responsive No c/o leg pain Afebrile WBC remains elevated 25K Still without IV access - Current Medication List Current Medications: Active Medications Acetaminophen (Tylenol -) 650 mg PO Q6H PRN PRN Reason: FEVER OR PAIN Last Admin: 02/15/17 10:52 Dose: 650 mg Atorvastatin Calcium (Lipitor -) 40 mg PO HS [facility] Last Admin: 02/15/17 22:42 Dose: 40 mg Chlorhexidine Gluconate (Hibiclens For Decolonization -) 1 applic TP HS [facility] Last Admin: 02/15/17 22:25 Dose: Not Given Collagenase (Santyl -) 1 applic TP DAILY [facility] Last Admin: 02/16/17 11:51 Dose: 1 applic Enoxaparin Sodium (Lovenox -) 100 mg SQ BID [facility] Last Admin: 02/16/17 14:31 Dose: 100 mg Hydromorphone HCl (Dilaudid Injection -) 2 mg IVPUSH Q4H PRN PRN Reason: PAIN LEVEL 6-10 Last Admin: 02/14/17 10:30 Dose: 2 mg IV Flush (Picc Line Flush) 8 ml IVPUSH PRN PRN PRN Reason: Protocol Sodium Chloride (Normal Saline -) 1,000 mls @ 100 mls/hr IV ASDIR [facility] Last Admin: 02/15/17 14:58 Dose: Not Given Levofloxacin (Levaquin -) 500 mg PO DAILY [facility] Last Admin: 02/16/17 11:50 Dose: 500 mg Methadone HCl (Dolophine -) 20 mg PO TID [facility] Last Admin: 02/16/17 14:23 Dose: 20 mg Metoprolol Tartrate (Lopressor -) 25 mg PO BID [facility] Last Admin: 02/16/17 11:50 Dose: 25 mg Morphine Sulfate (Ms Contin -) 15 mg PO TID [facility] Last Admin: 02/16/17 14:24 Dose: 15 mg Mupirocin (Bactroban Ointment (For Decolonization) -) 1 applic NS BID [facility] Stop: 02/17/17 21:59 Last Admin: 02/16/17 11:50 Dose: Not Given Ranitidine HCl (Zantac -) 150 mg PO DAILY [facility] Last Admin: 02/16/17 11:51 Dose: 150 mg - Objective Vital Signs: Vital Signs Temperature 97.6 F 04/10/17 13:40 Pulse Rate 99 H 02/16/17 13:40 Respiratory Rate 24 02/16/17 13:40 Blood Pressure 109/53 02/16/17 13:40 O2 Sat by Pulse Oximetry (%) 98 02/15/17 09:00 Constitutional: Yes: No Distress, Obese Eyes: Yes: Conjunctiva Clear Cardiovascular: Yes: Regular Rate and Rhythm, S1, S2 Respiratory: Yes: Diminished Gastrointestinal: Yes: Normal Bowel Sounds, Soft, Abdomen, Obese. No: Tenderness Extremities: Yes: Other (+ erythema LE extending to lateral thighs bilat + bullae) Edema: Yes Edema: LLE: 2+, RLE: 2+ Labs: CBC, BMP 02/16/17 05:35 02/16/17 05:35 INR, PTT INR 1.54 (0.82-1.09) H 02/13/17 05:30 Assessment/Plan Sepsis/ septic shock- improved Infected chronic venous stasis ulcers Bilateral LE cellulitis/ lymphangitis R>L- extending to lateral thighs B/L Toxic metabolic encephalopathy Leukocytosis zosyn/ vancomycin on hold pending re-est IV access Continue po levaquin po zyvox contra-indicated (drug-drug interaction) Local wound care
[2017-02-16] MEDS: SODIUM CHLORIDE 1,000 ML IV SCH (15:00)
--- NOTE | 2017-02-16 22:43 | PN ---
Progress Note, Physician History of Present Illness: Pt has no IV access and WBC has slightly increased Cont PO levaquin until IV access available - Current Medication List Current Medications: Active Medications Acetaminophen (Tylenol -) 650 mg PO Q6H PRN PRN Reason: FEVER OR PAIN Last Admin: 02/15/17 10:52 Dose: 650 mg Atorvastatin Calcium (Lipitor -) 40 mg PO HS [facility] Last Admin: 02/15/17 22:42 Dose: 40 mg Chlorhexidine Gluconate (Hibiclens For Decolonization -) 1 applic TP HS [facility] Last Admin: 02/15/17 22:25 Dose: Not Given Collagenase (Santyl -) 1 applic TP DAILY [facility] Last Admin: 02/16/17 11:51 Dose: 1 applic Enoxaparin Sodium (Lovenox -) 100 mg SQ BID [facility] Last Admin: 02/16/17 14:31 Dose: 100 mg IV Flush (Picc Line Flush) 8 ml IVPUSH PRN PRN PRN Reason: Protocol Sodium Chloride (Normal Saline -) 1,000 mls @ 100 mls/hr IV ASDIR [facility] Last Admin: 02/16/17 15:00 Dose: Not Given Levofloxacin (Levaquin -) 500 mg PO DAILY [facility] Last Admin: 02/16/17 11:50 Dose: 500 mg Methadone HCl (Dolophine -) 20 mg PO TID [facility] Last Admin: 02/16/17 14:23 Dose: 20 mg Metoprolol Tartrate (Lopressor -) 25 mg PO BID [facility] Last Admin: 02/16/17 11:50 Dose: 25 mg Morphine Sulfate (Ms Contin -) 15 mg PO TID [facility] Last Admin: 02/16/17 14:24 Dose: 15 mg Morphine Sulfate (Morphine Injection -) 2 mg SQ Q8H PRN PRN Reason: PAIN Mupirocin (Bactroban Ointment (For Decolonization) -) 1 applic NS BID [facility] Stop: 02/17/17 21:59 Last Admin: 02/16/17 11:50 Dose: Not Given Ranitidine HCl (Zantac -) 150 mg PO DAILY [facility] Last Admin: 02/16/17 11:51 Dose: 150 mg - Objective Vital Signs: Vital Signs Temperature 97.6 F 02/16/17 18:00 Pulse Rate 104 H 02/16/17 18:00 Respiratory Rate 20 02/16/17 18:00 Blood Pressure 124/49 02/16/17 18:00 O2 Sat by Pulse Oximetry (%) 98 02/15/17 09:00 Constitutional: Yes: Well Nourished Neck: Yes: Supple Cardiovascular: Yes: Pulse Irregular Respiratory: Yes: Regular, Other (Decreased bs b/l) Gastrointestinal: Yes: Abdomen, Obese Labs: CBC, BMP 02/16/17 05:35 02/16/17 05:35 INR, PTT INR 1.54 (0.82-1.09) H 02/13/17 05:30 Problem List - Problems (1) Sepsis Assessment/Plan: Cellulitis/leg uclers Surgical consult called for central line placement Hold lovenox in am Cont PO levaquin for now Check wBC in am Code(s): A41.9 - SEPSIS, UNSPECIFIED ORGANISM (2) Altered mental state Assessment/Plan: Improving Probably combination of metabolic vs infectious encephalopathy Code(s): R41.82 - ALTERED MENTAL STATUS, UNSPECIFIED (3) Atrial fibrillation with rapid ventricular response Assessment/Plan: Unclear if pt was on xarelto Pt now on lovenox due to no iv access Cont metoprolol Code(s): I48.91 - UNSPECIFIED ATRIAL FIBRILLATION (4) Lymphedema of both lower extremities Code(s): I89.0 - LYMPHEDEMA, NOT ELSEWHERE CLASSIFIED (5) Chronic cutaneous venous stasis ulcer Code(s): I83.009 - VARICOSE VEINS OF UNSP LOWER EXTREMITY W ULCER OF UNSP SITE (6) Chronic pain Code(s): G89.29 - OTHER CHRONIC PAIN (7) Diabetes Code(s): E11.9 - TYPE 2 DIABETES MELLITUS WITHOUT COMPLICATIONS (8) HTN (hypertension) Code(s): I10 - ESSENTIAL (PRIMARY) HYPERTENSION (9) Morbid obesity Code(s): E66.01 - MORBID (SEVERE) OBESITY DUE TO EXCESS CALORIES
[2017-02-16] MEDS: ATORVASTATIN CA 40 MG TABLET (FP) PO SCH (23:34)
[2017-02-16] MEDS: CHLORHEXIDINE GLUCONATE 4% CLEANSER FOR DECOLONIZATION TP SCH (23:35)
[2017-02-17] MEDS: morphine CARPU-JECT 2 MG/1 ML DISP.SYRIN SQ PRN ×2 (05:28→21:35)
[2017-02-17] MEDS: METHADONE HCL 10 MG TABLET PO SCH ×3 (06:09→21:30)
[2017-02-17] MEDS: morphine SO4 SUSTAINED ACTING 15 MG TABLET.SA PO SCH ×3 (06:10→21:30)
[2017-02-17 07:49] LABS: MCH 24.1 pg (25.7-33.7); MEAN CELL VOLUME 77.6 fl (80-96); MEAN PLT VOLUME 8.6 fl (7.5-11.1); PLATELET COUNT 265 K/MM3 (134-434); RDW 19.9 % (11.6-15.6); WHITE BLOOD COUNT 27.2 K/mm3 (4.0-10.0)
[2017-02-17] MEDS: MUPIROCIN 2% TOPICAL OINTMENT FOR DECOLONIZATION NS SCH ×2 (10:00→20:34)
--- NOTE | 2017-02-17 10:40 | PROC ---
Procedure Note Procedure: Called by patient's Rn as they are having a difficult time obtaining peripheral IV access after multiple attempts. Place 20 ga angiocath in her left EJ. Aspirates easily. Flushes without resistance. Tolerated procedure well. Ok to use.
[2017-02-17] MEDS: METOPROLOL TARTRATE 25 MG TABLET (FP) PO SCH ×2 (10:50→21:47)
[2017-02-17] MEDS: LEVOFLOXACIN 500 MG TABLET (FP) PO SCH (10:50)
[2017-02-17] MEDS: RANITIDINE HCL 150 MG TABLET (FP) PO SCH (10:50)
--- NOTE | 2017-02-17 11:15 | PN ---
Progress Note (short form) - Note Progress Note: WOUND CARE CONSULT - Dr. Adarsh Loving Called to radha 76 yo female, morbidly obese female w/ multiple medical problems including a cva about 6 months ago w/ residual weakness. PMHs includes Afib, HTN , HLD, diabetes, chronic venous stasis, chronic lymph edema/ulcers. Admitted to ICU with sepsis. Now on floor management. Last Vital Signs Temp Pulse Resp BP Pulse Ox 97.4 F L 104 H 24 107/56 98 02/17/17 06:00 02/17/17 10:45 02/17/17 10:45 02/17/17 10:45 02/15/17 09:00 CBC, BMP 02/17/17 07:15 02/16/17 05:35 INR, PTT INR 1.54 (0.82-1.09) H 02/13/17 05:30 Problem List - Problems (1) Cellulitis of both lower extremities Assessment/Plan: Local wound care When blisters rupture, place iodoform to area and allow to dry up and fall off naturally Light compression with elevation to LE b/l IV ABX Pain management PRN Patient to f/u in wound care clinic so she can be fitted for Lynph Edema Compression device. Continue medical management No surgical intervention. On behalf of Dr. Loving, thank you for the opportunity to participate in your patient's care. Code(s): L03.115 - CELLULITIS OF RIGHT LOWER LIMB L03.116 - CELLULITIS OF LEFT LOWER LIMB (2) Morbid obesity Code(s): E66.01 - MORBID (SEVERE) OBESITY DUE TO EXCESS CALORIES (3) Lymphedema Code(s): I89.0 - LYMPHEDEMA, NOT ELSEWHERE CLASSIFIED
[2017-02-17] MEDS ORDERED: morphine CARPU-JECT 2 MG/1 ML DISP.SYRIN IVPUSH PRN (11:25)
[2017-02-17] MEDS ORDERED: morphine CARPU-JECT 2 MG/1 ML DISP.SYRIN IVPUSH ONE ×2 (11:30→15:15)
[2017-02-17] MEDS: ENOXAPARIN NA (PORCINE) 100 MG/1 ML DISP.SYRIN SQ SCH ×2 (12:42→21:29)
[2017-02-17] MEDS: SODIUM CHLORIDE 1,000 ML IV SCH ×2 (13:18→19:18)
[2017-02-17] MEDS: PIPERACILLIN/TAZOB 3.375 GM 50 ML IVPB SCH ×3 (13:19→21:20)
[2017-02-17] MEDS: VANCOMYCIN 1 GRAM (PRE-DOCKED) 250 ML IVPB SCH (14:49)
--- NOTE | 2017-02-17 16:41 | CONSULT ---
Consult - text type - Consultation Consultation Note: CC: Bilateral leg and lower back pain HPI: This is 76 y/o morbidly obese female w/ multiple medical problems, now admitted with altered mental status from a combination of opioid withdrawal and sepsis. She is on chronic methadone maintenance for low back pain. She is ciurrently on MS contin and IV Morphine for ongoing pain secondray to severe cellulitis of lower extremities PMH: CVA, HTN, HLD, diabetes, chronic venous stasis, chronic leg ulcers, morbid obesity and chronic back pain A: 1. Sepsis 2. LE cellulitis 3. Chronic pain P: 1. Continue current meds for now. 2. Recommend consulting Dr. Perdomo regarding further medications and possible changes to Methadone dosage. 3. Thank you for the consult.
[2017-02-17] MEDS: COLLAGENASE CLOSTRIDIUM HIST. 30 GRAMS TUBE TP SCH (18:30)
[2017-02-17] MEDS: CHLORHEXIDINE GLUCONATE 4% CLEANSER FOR DECOLONIZATION TP SCH ×3 (20:32→21:47)
[2017-02-17] MEDS: GABAPENTIN 100 MG CAPSULE (FP) PO SCH (21:30)
[2017-02-17] MEDS: ATORVASTATIN CA 40 MG TABLET (FP) PO SCH (21:30)
--- NOTE | 2017-02-17 22:48 | PN ---
Progress Note, Physician History of Present Illness: Pt now w/ IV access - Current Medication List Current Medications: Active Medications Acetaminophen (Tylenol -) 650 mg PO Q6H PRN PRN Reason: FEVER OR PAIN Last Admin: 02/15/17 10:52 Dose: 650 mg Atorvastatin Calcium (Lipitor -) 40 mg PO HS [facility] Last Admin: 02/17/17 21:30 Dose: 40 mg Chlorhexidine Gluconate (Hibiclens For Decolonization -) 1 applic TP HS [facility] Last Admin: 02/17/17 21:47 Dose: Not Given Collagenase (Santyl -) 1 applic TP DAILY [facility] Last Admin: 02/17/17 18:30 Dose: 1 applic Enoxaparin Sodium (Lovenox -) 100 mg SQ BID [facility] Last Admin: 02/17/17 21:29 Dose: 100 mg Gabapentin (Neurontin -) 100 mg PO TID [facility] Last Admin: 02/17/17 21:30 Dose: 100 mg IV Flush (Picc Line Flush) 8 ml IVPUSH PRN PRN PRN Reason: Protocol Sodium Chloride (Normal Saline -) 1,000 mls @ 100 mls/hr IV ASDIR [facility] Last Admin: 02/17/17 19:18 Dose: Not Given Vancomycin HCl (Vancomycin (Pre-Docked)) 250 mls @ 200 mls/hr IVPB BID@0100, 1300 [facility] Last Admin: 02/17/17 14:49 Dose: 200 mls/hr Piperacillin Sod/Tazobactam Sod (Zosyn 3.375gm Ivpb (Pre-Docked)) 50 mls @ 100 mls/hr IVPB Q8H-IV [facility] PRN Reason: Protocol Last Admin: 02/17/17 21:20 Dose: 100 mls/hr Methadone HCl (Dolophine -) 20 mg PO TID [facility] Last Admin: 02/17/17 21:30 Dose: 20 mg Metoprolol Tartrate (Lopressor -) 25 mg PO BID [facility] Last Admin: 02/17/17 21:47 Dose: 25 mg Morphine Sulfate (Morphine Injection -) 2 mg SQ Q8H PRN PRN Reason: PAIN Last Admin: 02/17/17 21:35 Dose: 2 mg Morphine Sulfate (Ms Contin -) 15 mg PO TID [facility] Last Admin: 02/17/17 21:30 Dose: 15 mg Morphine Sulfate (Morphine Injection -) 2 mg IVPUSH Q4H PRN PRN Reason: PAIN Ranitidine HCl (Zantac -) 150 mg PO DAILY [facility] Last Admin: 02/17/17 10:50 Dose: 150 mg - Objective Vital Signs: Vital Signs Temperature 97.0 F L 02/17/17 18:00 Pulse Rate 97 H 02/17/17 18:00 Respiratory Rate 16 02/17/17 18:00 Blood Pressure 122/63 02/17/17 18:00 O2 Sat by Pulse Oximetry (%) 89 L 02/17/17 11:00 Constitutional: Yes: Well Nourished Neck: Yes: Supple Cardiovascular: Yes: Pulse Irregular Respiratory: Yes: Other (Distant sounds) Gastrointestinal: Yes: WNL, Normal Bowel Sounds, Soft, Abdomen, Obese Labs: CBC, BMP 02/17/17 07:15 02/16/17 05:35 INR, PTT INR 1.54 (0.82-1.09) H 02/13/17 05:30 Problem List - Problems (1) Sepsis Assessment/Plan: Cellulitis/leg uclers Cont IV vanco/zosyn Code(s): A41.9 - SEPSIS, UNSPECIFIED ORGANISM (2) Atrial fibrillation with rapid ventricular response Assessment/Plan: Cont lovenox Code(s): I48.91 - UNSPECIFIED ATRIAL FIBRILLATION (3) Lymphedema of both lower extremities Code(s): I89.0 - LYMPHEDEMA, NOT ELSEWHERE CLASSIFIED (4) Chronic cutaneous venous stasis ulcer Code(s): I83.009 - VARICOSE VEINS OF UNSP LOWER EXTREMITY W ULCER OF UNSP SITE (5) Chronic pain Code(s): G89.29 - OTHER CHRONIC PAIN (6) Diabetes Code(s): E11.9 - TYPE 2 DIABETES MELLITUS WITHOUT COMPLICATIONS (7) HTN (hypertension) Code(s): I10 - ESSENTIAL (PRIMARY) HYPERTENSION (8) Morbid obesity Code(s): E66.01 - MORBID (SEVERE) OBESITY DUE TO EXCESS CALORIES (9) Altered mental state Code(s): R41.82 - ALTERED MENTAL STATUS, UNSPECIFIED
[2017-02-18] MEDS: VANCOMYCIN 1 GRAM (PRE-DOCKED) 250 ML IVPB SCH ×2 (02:07→13:12)
[2017-02-18] MEDS: morphine CARPU-JECT 2 MG/1 ML DISP.SYRIN IVPUSH PRN ×2 (03:51→17:38)
[2017-02-18] MEDS: PIPERACILLIN/TAZOB 3.375 GM 50 ML IVPB SCH ×4 (04:40→17:37)
[2017-02-18] MEDS: METHADONE HCL 10 MG TABLET PO SCH ×3 (06:11→23:28)
[2017-02-18] MEDS: GABAPENTIN 100 MG CAPSULE (FP) PO SCH ×3 (06:12→23:29)
[2017-02-18] MEDS: morphine SO4 SUSTAINED ACTING 15 MG TABLET.SA PO SCH ×3 (06:12→23:29)
[2017-02-18 08:53] LABS: BASOPHIL 0.1 % (0-2.0); EOSINOPHIL 0.4 % (0-4.5); MCH 23.6 pg (25.7-33.7); MCHC 30.4 g/dl (32.0-36.0); MEAN CELL VOLUME 77.6 fl (80-96); MEAN PLT VOLUME 8.5 fl (7.5-11.1); NEUTROPHILS 91.6 % (42.8-82.8); PLATELET COUNT 269 K/MM3 (134-434); RDW 20.1 % (11.6-15.6)
[2017-02-18 09:06] LABS: ALBUMIN 1.3 g/dl (3.4-5.0); BILIRUBIN,TOTAL 0.8 mg/dL (0.2-1.0); CALCIUM 7.4 mg/dL (8.5-10.1); TOT PROT 5.6 g/dl (6.4-8.2)
[2017-02-18 09:09] LABS: COCKROFT - GAULT 43.69
[2017-02-18] MEDS: METOPROLOL TARTRATE 25 MG TABLET (FP) PO SCH ×2 (09:52→23:28)
[2017-02-18] MEDS: RANITIDINE HCL 150 MG TABLET (FP) PO SCH (09:52)
[2017-02-18] MEDS: ENOXAPARIN NA (PORCINE) 100 MG/1 ML DISP.SYRIN SQ SCH ×2 (09:52→23:28)
[2017-02-18] MEDS: COLLAGENASE CLOSTRIDIUM HIST. 30 GRAMS TUBE TP SCH (09:52)
--- NOTE | 2017-02-18 14:12 | CON.PSY ---
Psychiatry Consult Chief Complaint: I am in pain. - Previous Psychiatric Treatment Outpatient: None Inpatient: None - Previous Substance Abuse Treatment Outpatient: None Inpatient: None - Family History Family History: Unremarkable - Current Medications Current Medications: Active Medications Acetaminophen (Tylenol -) 650 mg PO Q6H PRN PRN Reason: FEVER OR PAIN Last Admin: 02/15/17 10:52 Dose: 650 mg Atorvastatin Calcium (Lipitor -) 40 mg PO HS [facility] Last Admin: 02/17/17 21:30 Dose: 40 mg Chlorhexidine Gluconate (Hibiclens For Decolonization -) 1 applic TP HS [facility] Last Admin: 02/17/17 21:47 Dose: Not Given Collagenase (Santyl -) 1 applic TP DAILY [facility] Last Admin: 02/18/17 09:52 Dose: 1 applic Enoxaparin Sodium (Lovenox -) 100 mg SQ BID [facility] Last Admin: 02/18/17 09:52 Dose: 100 mg Gabapentin (Neurontin -) 100 mg PO TID [facility] Last Admin: 02/18/17 13:13 Dose: 100 mg IV Flush (Picc Line Flush) 8 ml IVPUSH PRN PRN PRN Reason: Protocol Sodium Chloride (Normal Saline -) 1,000 mls @ 100 mls/hr IV ASDIR [facility] Last Admin: 02/17/17 19:18 Dose: Not Given Vancomycin HCl (Vancomycin (Pre-Docked)) 250 mls @ 200 mls/hr IVPB BID@0100, 1300 [facility] Last Admin: 02/18/17 13:12 Dose: 200 mls/hr Piperacillin Sod/Tazobactam Sod (Zosyn 3.375gm Ivpb (Pre-Docked)) 50 mls @ 100 mls/hr IVPB Q8H-IV [facility] PRN Reason: Protocol Last Admin: 02/18/17 09:52 Dose: 100 mls/hr Methadone HCl (Dolophine -) 20 mg PO TID [facility] Last Admin: 02/18/17 13:13 Dose: 20 mg Metoprolol Tartrate (Lopressor -) 25 mg PO BID [facility] Last Admin: 02/18/17 09:52 Dose: 25 mg Morphine Sulfate (Morphine Injection -) 2 mg SQ Q8H PRN PRN Reason: PAIN Last Admin: 02/17/17 21:35 Dose: 2 mg Morphine Sulfate (Ms Contin -) 15 mg PO TID [facility] Last Admin: 02/18/17 13:13 Dose: 15 mg Morphine Sulfate (Morphine Injection -) 2 mg IVPUSH Q4H PRN PRN Reason: PAIN Last Admin: 02/18/17 03:51 Dose: 2 mg Ranitidine HCl (Zantac -) 150 mg PO DAILY [facility] Last Admin: 02/18/17 09:52 Dose: 150 mg - Allergies Allergies: Allergies Allergy/AdvReac Type Severity Reaction Status Date / Time codeine phosphate AdvReac Mild Nausea Verified 06/01/15 14:24 [From Tylenol-Codeine] - Current Living Status Usual Living Arrangement: Alone - Current Mental Status Evaluation Appearance: Well Groomed Attitude: Cooperative - Affect Affect: Full Range Appropriateness: Appropriate to Content - Mood Mood: Euthymic - Speech/Language Expressive: Coherent - Psychomotor Activity Psychomotor Activity: Normal - Thought Process Thought Process: Intact - Thought Content Hallucinations: Absent Delusions: Absent - Self Perception Self Perception: No Impairment - Cognition Attention: Alert Orientation: Time Memory, Immediate Recall: Intact Memory, Short Term: 2/3 Memory, Remote with Promptin/3 - Concentration Serial Sevens Intact: No Simple Calculations Intact: No - Abstraction Proverb Interpretation: Intact Judgement: Minimally Impaired - Insight Insight: Intact - Impulse Control Impulse Control: Minimally Impaired - Suicidal Ideation Suicidal Ideation: No - Homicidal Ideation Homicidal Ideation: No Assessment/Plan No evidence of any acute Psychiatric disorder. No need for any psych meds at this time.
[2017-02-18] MEDS: SODIUM CHLORIDE 1,000 ML IV SCH (17:37)
[2017-02-18] MEDS: morphine CARPU-JECT 2 MG/1 ML DISP.SYRIN SQ PRN (20:26)
--- NOTE | 2017-02-18 22:52 | PN ---
Progress Note, Physician History of Present Illness: Pt having increased pain - Current Medication List Current Medications: Active Medications Acetaminophen (Tylenol -) 650 mg PO Q6H PRN PRN Reason: FEVER OR PAIN Last Admin: 02/15/17 10:52 Dose: 650 mg Atorvastatin Calcium (Lipitor -) 40 mg PO HS [facility] Last Admin: 02/17/17 21:30 Dose: 40 mg Chlorhexidine Gluconate (Hibiclens For Decolonization -) 1 applic TP HS [facility] Last Admin: 02/17/17 21:47 Dose: Not Given Collagenase (Santyl -) 1 applic TP DAILY [facility] Last Admin: 02/18/17 09:52 Dose: 1 applic Enoxaparin Sodium (Lovenox -) 100 mg SQ BID [facility] Last Admin: 02/18/17 09:52 Dose: 100 mg Gabapentin (Neurontin -) 100 mg PO TID [facility] Last Admin: 02/18/17 13:13 Dose: 100 mg IV Flush (Picc Line Flush) 8 ml IVPUSH PRN PRN PRN Reason: Protocol Sodium Chloride (Normal Saline -) 1,000 mls @ 100 mls/hr IV ASDIR [facility] Last Admin: 02/18/17 17:37 Dose: 100 mls/hr Vancomycin HCl (Vancomycin (Pre-Docked)) 250 mls @ 200 mls/hr IVPB BID@0100, 1300 [facility] Last Admin: 02/18/17 13:12 Dose: 200 mls/hr Piperacillin Sod/Tazobactam Sod (Zosyn 3.375gm Ivpb (Pre-Docked)) 50 mls @ 100 mls/hr IVPB Q8H-IV [facility] PRN Reason: Protocol Last Admin: 02/18/17 17:37 Dose: 100 mls/hr Methadone HCl (Dolophine -) 20 mg PO TID [facility] Last Admin: 02/18/17 13:13 Dose: 20 mg Metoprolol Tartrate (Lopressor -) 25 mg PO BID [facility] Last Admin: 02/18/17 09:52 Dose: 25 mg Morphine Sulfate (Morphine Injection -) 2 mg SQ Q8H PRN PRN Reason: PAIN Last Admin: 02/18/17 20:26 Dose: 2 mg Morphine Sulfate (Ms Contin -) 15 mg PO TID [facility] Last Admin: 02/18/17 13:13 Dose: 15 mg Morphine Sulfate (Morphine Injection -) 2 mg IVPUSH Q4H PRN PRN Reason: PAIN Last Admin: 02/18/17 17:38 Dose: 2 mg Ranitidine HCl (Zantac -) 150 mg PO DAILY [facility] Last Admin: 02/18/17 09:52 Dose: 150 mg - Objective Vital Signs: Vital Signs Temperature 98 F 02/18/17 21:42 Pulse Rate 75 02/18/17 21:42 Respiratory Rate 22 02/18/17 21:42 Blood Pressure 131/80 02/18/17 21:42 O2 Sat by Pulse Oximetry (%) 99 02/18/17 21:00 Constitutional: Yes: Well Nourished Neck: Yes: Supple Cardiovascular: Yes: WNL, Pulse Irregular Respiratory: Yes: WNL, Regular, CTA Bilaterally Gastrointestinal: Yes: Soft, Abdomen, Obese Extremities: Yes: Other ((+) erythema b/l legs w/ oozing) Labs: CBC, BMP 02/18/17 08:00 02/18/17 08:00 INR, PTT INR 1.54 (0.82-1.09) H 02/13/17 05:30 Problem List - Problems (1) Sepsis Assessment/Plan: Cellulitis/leg uclers Cont IV vanco/zosyn Code(s): A41.9 - SEPSIS, UNSPECIFIED ORGANISM (2) Atrial fibrillation with rapid ventricular response Assessment/Plan: Cont lovenox Code(s): I48.91 - UNSPECIFIED ATRIAL FIBRILLATION (3) Lymphedema of both lower extremities Code(s): I89.0 - LYMPHEDEMA, NOT ELSEWHERE CLASSIFIED (4) Chronic cutaneous venous stasis ulcer Code(s): I83.009 - VARICOSE VEINS OF UNSP LOWER EXTREMITY W ULCER OF UNSP SITE (5) Chronic pain Code(s): G89.29 - OTHER CHRONIC PAIN (6) Diabetes Code(s): E11.9 - TYPE 2 DIABETES MELLITUS WITHOUT COMPLICATIONS (7) HTN (hypertension) Code(s): I10 - ESSENTIAL (PRIMARY) HYPERTENSION (8) Morbid obesity Code(s): E66.01 - MORBID (SEVERE) OBESITY DUE TO EXCESS CALORIES (9) Altered mental state Code(s): R41.82 - ALTERED MENTAL STATUS, UNSPECIFIED
[2017-02-18] MEDS: CHLORHEXIDINE GLUCONATE 4% CLEANSER FOR DECOLONIZATION TP SCH (23:28)
[2017-02-18] MEDS: ACETAMINOPHEN 325 MG TABLET (FP) PO PRN (23:28)
[2017-02-18] MEDS: ATORVASTATIN CA 40 MG TABLET (FP) PO SCH (23:28)
[2017-02-19] MEDS: VANCOMYCIN 1 GRAM (PRE-DOCKED) 250 ML IVPB SCH ×2 (00:29→14:05)
[2017-02-19] MEDS: PIPERACILLIN/TAZOB 3.375 GM 50 ML IVPB SCH ×3 (02:19→18:11)
[2017-02-19] MEDS: METHADONE HCL 10 MG TABLET PO SCH ×3 (06:08→22:45)
[2017-02-19] MEDS: morphine SO4 SUSTAINED ACTING 15 MG TABLET.SA PO SCH ×3 (06:09→21:54)
[2017-02-19] MEDS: GABAPENTIN 100 MG CAPSULE (FP) PO SCH ×3 (06:09→21:55)
[2017-02-19 08:01] LABS: MCH 24.6 pg (25.7-33.7); MCHC 31.6 g/dl (32.0-36.0); MEAN CELL VOLUME 77.9 fl (80-96); MEAN PLT VOLUME 8.5 fl (7.5-11.1); PLATELET COUNT 312 K/MM3 (134-434); RDW 20.3 % (11.6-15.6); WHITE BLOOD COUNT 15.4 K/mm3 (4.0-10.0)
[2017-02-19 08:18] LABS: ALBUMIN 1.5 g/dl (3.4-5.0); CALCIUM 7.3 mg/dL (8.5-10.1); COCKROFT - GAULT 47.3365; CREATININE 1.9 mg/dL (0.55-1.02)
[2017-02-19 08:19] LABS: BILIRUBIN,TOTAL 0.7 mg/dL (0.2-1.0); TOT PROT 6.6 g/dl (6.4-8.2)
[2017-02-19] MEDS: RANITIDINE HCL 150 MG TABLET (FP) PO SCH (10:49)
[2017-02-19] MEDS: METOPROLOL TARTRATE 25 MG TABLET (FP) PO SCH ×2 (10:49→21:55)
[2017-02-19] MEDS: ENOXAPARIN NA (PORCINE) 100 MG/1 ML DISP.SYRIN SQ SCH ×2 (10:50→21:55)
[2017-02-19] MEDS: COLLAGENASE CLOSTRIDIUM HIST. 30 GRAMS TUBE TP SCH (10:56)
[2017-02-19 12:42] LABS: ANISOCYTOSIS 2+; HYPOCHROMIA 2+; MICROCYTOSIS FEW; POLYCHROMASIA 1+
[2017-02-19 12:43] LABS: PLATELET ESTIMATE ADEQUATE (NORMAL)
[2017-02-19] MEDS: SODIUM CHLORIDE 1,000 ML IV SCH ×2 (13:00→23:22)
--- NOTE | 2017-02-19 13:46 | PN ---
Progress Note, Physician History of Present Illness: IV access re-established; vanco/ zosyn resumed C/O leg pain Afebrile WBC improved - Current Medication List Current Medications: Active Medications Acetaminophen (Tylenol -) 650 mg PO Q6H PRN PRN Reason: FEVER OR PAIN Last Admin: 02/18/17 23:28 Dose: 650 mg Atorvastatin Calcium (Lipitor -) 40 mg PO HS [facility] Last Admin: 02/18/17 23:28 Dose: 40 mg Chlorhexidine Gluconate (Hibiclens For Decolonization -) 1 applic TP HS [facility] Last Admin: 02/18/17 23:28 Dose: 1 applic Collagenase (Santyl -) 1 applic TP DAILY [facility] Last Admin: 02/19/17 10:56 Dose: Not Given Enoxaparin Sodium (Lovenox -) 100 mg SQ BID [facility] Last Admin: 02/19/17 10:50 Dose: 100 mg Gabapentin (Neurontin -) 100 mg PO TID [facility] Last Admin: 02/19/17 06:09 Dose: 100 mg IV Flush (Picc Line Flush) 8 ml IVPUSH PRN PRN PRN Reason: Protocol Sodium Chloride (Normal Saline -) 1,000 mls @ 100 mls/hr IV ASDIR [facility] Last Admin: 02/18/17 17:37 Dose: 100 mls/hr Vancomycin HCl (Vancomycin (Pre-Docked)) 250 mls @ 200 mls/hr IVPB BID@0100, 1300 [facility] Last Admin: 02/19/17 00:29 Dose: 200 mls/hr Piperacillin Sod/Tazobactam Sod (Zosyn 3.375gm Ivpb (Pre-Docked)) 50 mls @ 100 mls/hr IVPB Q8H-IV [facility] PRN Reason: Protocol Last Admin: 02/19/17 10:57 Dose: 100 mls/hr Methadone HCl (Dolophine -) 20 mg PO TID [facility] Last Admin: 02/19/17 06:08 Dose: 20 mg Metoprolol Tartrate (Lopressor -) 25 mg PO BID [facility] Last Admin: 02/19/17 10:49 Dose: 25 mg Morphine Sulfate (Morphine Injection -) 2 mg SQ Q8H PRN PRN Reason: PAIN Last Admin: 02/18/17 20:26 Dose: 2 mg Morphine Sulfate (Ms Contin -) 15 mg PO TID [facility] Last Admin: 02/19/17 06:09 Dose: 15 mg Morphine Sulfate (Morphine Injection -) 2 mg IVPUSH Q4H PRN PRN Reason: PAIN Last Admin: 02/18/17 17:38 Dose: 2 mg Ranitidine HCl (Zantac -) 150 mg PO DAILY [facility] Last Admin: 02/19/17 10:49 Dose: 150 mg - Objective Vital Signs: Vital Signs Temperature 98.5 F 02/19/17 09:30 Pulse Rate 75 02/19/17 09:30 Respiratory Rate 20 02/19/17 09:30 Blood Pressure 111/85 02/19/17 09:30 O2 Sat by Pulse Oximetry (%) 99 02/18/17 21:00 Constitutional: Yes: No Distress, Obese Eyes: Yes: Conjunctiva Clear Cardiovascular: Yes: Regular Rate and Rhythm, S1, S2 Respiratory: Yes: CTA Bilaterally Gastrointestinal: Yes: Normal Bowel Sounds, Soft, Abdomen, Obese. No: Tenderness Extremities: Yes: Other (+ bilateral LE edema/ erythema erythema slightly faded +bullae) Edema: Yes Labs: CBC, BMP 02/19/17 06:15 02/19/17 06:15 INR, PTT INR 1.54 (0.82-1.09) H 02/13/17 05:30 Assessment/Plan Sepsis/ septic shock- resolved Infected chronic venous stasis ulcers Bilateral LE cellulitis/ lymphangitis R>L- extending to lateral thighs B/L Toxic metabolic encephalopathy Leukocytosis- improved Continue zosyn/ vancomycin Local wound care
[2017-02-19] MEDS ORDERED: BISACODYL 5 MG TABLET.DR (FP) PO ONE (20:30)
[2017-02-19] MEDS: CHLORHEXIDINE GLUCONATE 4% CLEANSER FOR DECOLONIZATION TP SCH (21:56)
[2017-02-19] MEDS: ATORVASTATIN CA 40 MG TABLET (FP) PO SCH (21:56)
--- NOTE | 2017-02-19 22:39 | PN ---
Progress Note, Physician History of Present Illness: No new complaints - Current Medication List Current Medications: Active Medications Acetaminophen (Tylenol -) 650 mg PO Q6H PRN PRN Reason: FEVER OR PAIN Last Admin: 02/18/17 23:28 Dose: 650 mg Atorvastatin Calcium (Lipitor -) 40 mg PO HS [facility] Last Admin: 02/19/17 21:56 Dose: 40 mg Chlorhexidine Gluconate (Hibiclens For Decolonization -) 1 applic TP HS [facility] Last Admin: 02/19/17 21:56 Dose: 1 applic Collagenase (Santyl -) 1 applic TP DAILY [facility] Last Admin: 02/19/17 10:56 Dose: Not Given Enoxaparin Sodium (Lovenox -) 100 mg SQ BID [facility] Last Admin: 02/19/17 21:55 Dose: 100 mg Gabapentin (Neurontin -) 100 mg PO TID [facility] Last Admin: 02/19/17 21:55 Dose: 100 mg IV Flush (Picc Line Flush) 8 ml IVPUSH PRN PRN PRN Reason: Protocol Sodium Chloride (Normal Saline -) 1,000 mls @ 100 mls/hr IV ASDIR [facility] Last Admin: 02/19/17 13:00 Dose: 100 mls/hr Vancomycin HCl (Vancomycin (Pre-Docked)) 250 mls @ 200 mls/hr IVPB BID@0100, 1300 [facility] Last Admin: 02/19/17 14:05 Dose: 200 mls/hr Piperacillin Sod/Tazobactam Sod (Zosyn 3.375gm Ivpb (Pre-Docked)) 50 mls @ 100 mls/hr IVPB Q8H-IV [facility] PRN Reason: Protocol Last Admin: 02/19/17 18:11 Dose: 100 mls/hr Methadone HCl (Dolophine -) 20 mg PO TID [facility] Last Admin: 02/19/17 14:00 Dose: Not Given Metoprolol Tartrate (Lopressor -) 25 mg PO BID [facility] Last Admin: 02/19/17 21:55 Dose: 25 mg Morphine Sulfate (Ms Contin -) 15 mg PO TID [facility] Last Admin: 02/19/17 21:54 Dose: 15 mg Morphine Sulfate (Morphine Injection -) 2 mg IVPUSH Q4H PRN PRN Reason: PAIN Last Admin: 02/18/17 17:38 Dose: 2 mg Ranitidine HCl (Zantac -) 150 mg PO DAILY [facility] Last Admin: 02/19/17 10:49 Dose: 150 mg - Objective Vital Signs: Vital Signs Temperature 97.0 F L 02/19/17 18:00 Pulse Rate 78 02/19/17 18:00 Respiratory Rate 18 02/19/17 18:00 Blood Pressure 144/108 02/19/17 18:00 O2 Sat by Pulse Oximetry (%) 95 02/19/17 09:00 Cardiovascular: Yes: WNL, Regular Rate and Rhythm Respiratory: Yes: WNL, Regular, CTA Bilaterally Gastrointestinal: Yes: WNL, Normal Bowel Sounds, Soft Labs: CBC, BMP 02/19/17 06:15 02/19/17 06:15 INR, PTT INR 1.54 (0.82-1.09) H 02/13/17 05:30 Problem List - Problems (1) Sepsis Code(s): A41.9 - SEPSIS, UNSPECIFIED ORGANISM (2) Atrial fibrillation with rapid ventricular response Code(s): I48.91 - UNSPECIFIED ATRIAL FIBRILLATION (3) Lymphedema of both lower extremities Code(s): I89.0 - LYMPHEDEMA, NOT ELSEWHERE CLASSIFIED (4) Chronic cutaneous venous stasis ulcer Code(s): I83.009 - VARICOSE VEINS OF UNSP LOWER EXTREMITY W ULCER OF UNSP SITE (5) Chronic pain Code(s): G89.29 - OTHER CHRONIC PAIN (6) Diabetes Code(s): E11.9 - TYPE 2 DIABETES MELLITUS WITHOUT COMPLICATIONS (7) HTN (hypertension) Code(s): I10 - ESSENTIAL (PRIMARY) HYPERTENSION (8) Morbid obesity Code(s): E66.01 - MORBID (SEVERE) OBESITY DUE TO EXCESS CALORIES (9) Altered mental state Code(s): R41.82 - ALTERED MENTAL STATUS, UNSPECIFIED
[2017-02-19] MEDS: morphine CARPU-JECT 2 MG/1 ML DISP.SYRIN IVPUSH PRN (23:22)
[2017-02-20] MEDS: VANCOMYCIN 1 GRAM (PRE-DOCKED) 250 ML IVPB SCH (01:08)
[2017-02-20] MEDS: PIPERACILLIN/TAZOB 3.375 GM 50 ML IVPB SCH ×3 (01:09→19:17)
[2017-02-20] MEDS: METHADONE HCL 10 MG TABLET PO SCH ×3 (05:46→22:52)
[2017-02-20] MEDS: GABAPENTIN 100 MG CAPSULE (FP) PO SCH ×3 (05:47→22:52)
[2017-02-20] MEDS: morphine SO4 SUSTAINED ACTING 15 MG TABLET.SA PO SCH ×3 (05:47→22:55)
[2017-02-20] MEDS: RANITIDINE HCL 150 MG TABLET (FP) PO SCH (11:22)
[2017-02-20] MEDS: METOPROLOL TARTRATE 25 MG TABLET (FP) PO SCH ×2 (11:23→22:56)
[2017-02-20] MEDS: ENOXAPARIN NA (PORCINE) 100 MG/1 ML DISP.SYRIN SQ SCH ×2 (11:24→22:52)
[2017-02-20] MEDS: ONDANSETRON 4 MG/2 ML VIAL IVPB PRN (16:16)
--- NOTE | 2017-02-20 17:02 | PN ---
Progress Note, Physician History of Present Illness: Confused Complains of leg pain when legs moved No c/o fever/ chills Afebrile WBC improving - Current Medication List Current Medications: Active Medications Acetaminophen (Tylenol -) 650 mg PO Q6H PRN PRN Reason: FEVER OR PAIN Last Admin: 02/18/17 23:28 Dose: 650 mg Atorvastatin Calcium (Lipitor -) 40 mg PO HS [facility] Last Admin: 02/19/17 21:56 Dose: 40 mg Chlorhexidine Gluconate (Hibiclens For Decolonization -) 1 applic TP HS [facility] Last Admin: 02/19/17 21:56 Dose: 1 applic Collagenase (Santyl -) 1 applic TP DAILY [facility] Last Admin: 02/19/17 10:56 Dose: Not Given Enoxaparin Sodium (Lovenox -) 100 mg SQ BID [facility] Last Admin: 02/20/17 11:24 Dose: 100 mg Gabapentin (Neurontin -) 100 mg PO TID [facility] Last Admin: 02/20/17 14:35 Dose: Not Given IV Flush (Picc Line Flush) 8 ml IVPUSH PRN PRN PRN Reason: Protocol Sodium Chloride (Normal Saline -) 1,000 mls @ 100 mls/hr IV ASDIR [facility] Last Admin: 02/19/17 23:22 Dose: 100 mls/hr Piperacillin Sod/Tazobactam Sod (Zosyn 3.375gm Ivpb (Pre-Docked)) 50 mls @ 100 mls/hr IVPB Q8H-IV [facility] PRN Reason: Protocol Last Admin: 02/20/17 11:22 Dose: 100 mls/hr Methadone HCl (Dolophine -) 20 mg PO BID [facility] Metoprolol Tartrate (Lopressor -) 25 mg PO BID [facility] Last Admin: 02/20/17 11:23 Dose: Not Given Morphine Sulfate (Ms Contin -) 15 mg PO TID [facility] Last Admin: 02/20/17 14:32 Dose: Not Given Morphine Sulfate (Morphine Injection -) 2 mg IVPUSH Q4H PRN PRN Reason: PAIN Last Admin: 02/19/17 23:22 Dose: 2 mg Morphine Sulfate (Morphine Injection -) 2 mg IVPUSH DAILY [facility] Ondansetron HCl (Zofran Injection) 4 mg IVPB Q8H PRN PRN Reason: NAUSEA AND/OR VOMITING Last Admin: 02/20/17 16:16 Dose: 4 mg Ranitidine HCl (Zantac -) 150 mg PO DAILY [facility] Last Admin: 02/20/17 11:22 Dose: 150 mg - Objective Vital Signs: Vital Signs Temperature 97.5 F L 02/20/17 14:20 Pulse Rate 71 02/20/17 14:20 Respiratory Rate 20 02/20/17 14:20 Blood Pressure 107/52 02/20/17 14:20 O2 Sat by Pulse Oximetry (%) 95 02/19/17 22:00 Constitutional: Yes: No Distress Eyes: Yes: Conjunctiva Clear Cardiovascular: Yes: Regular Rate and Rhythm, S1, S2 Respiratory: Yes: Diminished Gastrointestinal: Yes: Normal Bowel Sounds, Soft, Abdomen, Obese. No: Tenderness Extremities: Yes: Other (+ LE edema, bulla, weepage decreasing erythema/ warmth + chronic stasis ulcers LE bilaterally) Edema: Yes Labs: CBC, BMP 02/19/17 06:15 02/19/17 06:15 INR, PTT INR 1.54 (0.82-1.09) H 02/13/17 05:30 Assessment/Plan Sepsis/ septic shock- resolved Infected chronic venous stasis ulcers Bilateral LE cellulitis/ lymphangitis R>L- extending to lateral thighs B/L Toxic metabolic encephalopathy Leukocytosis- improved Continue zosyn. D/C vancomycin ( elevated trough ) Local wound care
--- NOTE | 2017-02-20 18:26 | PN ---
Progress Note, Physician History of Present Illness: No new complaints - Current Medication List Current Medications: Active Medications Acetaminophen (Tylenol -) 650 mg PO Q6H PRN PRN Reason: FEVER OR PAIN Last Admin: 02/18/17 23:28 Dose: 650 mg Atorvastatin Calcium (Lipitor -) 40 mg PO HS [facility] Last Admin: 02/19/17 21:56 Dose: 40 mg Chlorhexidine Gluconate (Hibiclens For Decolonization -) 1 applic TP HS [facility] Last Admin: 02/19/17 21:56 Dose: 1 applic Collagenase (Santyl -) 1 applic TP DAILY [facility] Last Admin: 02/19/17 10:56 Dose: Not Given Enoxaparin Sodium (Lovenox -) 100 mg SQ BID [facility] Last Admin: 02/20/17 11:24 Dose: 100 mg Gabapentin (Neurontin -) 100 mg PO TID [facility] Last Admin: 02/20/17 14:35 Dose: Not Given IV Flush (Picc Line Flush) 8 ml IVPUSH PRN PRN PRN Reason: Protocol Sodium Chloride (Normal Saline -) 1,000 mls @ 100 mls/hr IV ASDIR [facility] Last Admin: 02/19/17 23:22 Dose: 100 mls/hr Piperacillin Sod/Tazobactam Sod (Zosyn 3.375gm Ivpb (Pre-Docked)) 50 mls @ 100 mls/hr IVPB Q8H-IV [facility] PRN Reason: Protocol Last Admin: 02/20/17 11:22 Dose: 100 mls/hr Methadone HCl (Dolophine -) 20 mg PO BID [facility] Metoprolol Tartrate (Lopressor -) 25 mg PO BID [facility] Last Admin: 02/20/17 11:23 Dose: Not Given Morphine Sulfate (Ms Contin -) 15 mg PO TID [facility] Last Admin: 02/20/17 14:32 Dose: Not Given Morphine Sulfate (Morphine Injection -) 2 mg IVPUSH DAILY [facility] Ondansetron HCl (Zofran Injection) 4 mg IVPB Q8H PRN PRN Reason: NAUSEA AND/OR VOMITING Last Admin: 02/20/17 16:16 Dose: 4 mg Ranitidine HCl (Zantac -) 150 mg PO DAILY [facility] Last Admin: 02/20/17 11:22 Dose: 150 mg - Objective Vital Signs: Vital Signs Temperature 97.5 F L 02/20/17 14:20 Pulse Rate 65 02/20/17 18:08 Respiratory Rate 20 02/20/17 18:08 Blood Pressure 112/60 02/20/17 18:08 O2 Sat by Pulse Oximetry (%) 95 02/19/17 22:00 Cardiovascular: Yes: WNL, Regular Rate and Rhythm Respiratory: Yes: WNL, Regular, CTA Bilaterally Gastrointestinal: Yes: WNL, Normal Bowel Sounds, Soft Labs: CBC, BMP 02/19/17 06:15 02/19/17 06:15 INR, PTT INR 1.54 (0.82-1.09) H 02/13/17 05:30 Problem List - Problems (1) Sepsis Code(s): A41.9 - SEPSIS, UNSPECIFIED ORGANISM (2) Atrial fibrillation with rapid ventricular response Code(s): I48.91 - UNSPECIFIED ATRIAL FIBRILLATION (3) Lymphedema of both lower extremities Code(s): I89.0 - LYMPHEDEMA, NOT ELSEWHERE CLASSIFIED (4) Chronic cutaneous venous stasis ulcer Code(s): I83.009 - VARICOSE VEINS OF UNSP LOWER EXTREMITY W ULCER OF UNSP SITE (5) Chronic pain Code(s): G89.29 - OTHER CHRONIC PAIN (6) Diabetes Code(s): E11.9 - TYPE 2 DIABETES MELLITUS WITHOUT COMPLICATIONS (7) HTN (hypertension) Code(s): I10 - ESSENTIAL (PRIMARY) HYPERTENSION (8) Morbid obesity Code(s): E66.01 - MORBID (SEVERE) OBESITY DUE TO EXCESS CALORIES (9) Altered mental state Code(s): R41.82 - ALTERED MENTAL STATUS, UNSPECIFIED
[2017-02-20 18:32] LABS: MCH 24.3 pg (25.7-33.7); MCHC 31.4 g/dl (32.0-36.0); MEAN CELL VOLUME 77.2 fl (80-96); MEAN PLT VOLUME 8.2 fl (7.5-11.1); PLATELET COUNT 298 K/MM3 (134-434); RDW 20.5 % (11.6-15.6); WHITE BLOOD COUNT 11.8 K/mm3 (4.0-10.0)
[2017-02-20] MEDS: morphine CARPU-JECT 2 MG/1 ML DISP.SYRIN IVPUSH SCH (18:39)
[2017-02-20] MEDS: COLLAGENASE CLOSTRIDIUM HIST. 30 GRAMS TUBE TP SCH (19:00)
[2017-02-20 19:06] LABS: ALBUMIN 1.3 g/dl (3.4-5.0); BILIRUBIN,TOTAL 0.5 mg/dL (0.2-1.0); COCKROFT - GAULT 32.1215; CREATININE 2.8 mg/dL (0.55-1.02); TOT PROT 6.3 g/dl (6.4-8.2)
[2017-02-20 19:11] LABS: CALCIUM 6.9 mg/dL (8.5-10.1)
--- NOTE | 2017-02-20 20:34 | PN ---
Progress Note (short form) - Note Progress Note: CC: pain, afib S: Worsening renal failure. Received extra IVF yesterday. Patient denies worsening LE edema or abdominal distension. mental status improved. no cp, palps, dizziness, sob. + le pain. Current Medications Acetaminophen (Tylenol -) 650 mg PO Q6H PRN PRN Reason: FEVER OR PAIN Last Admin: 02/18/17 23:28 Dose: 650 mg Atorvastatin Calcium (Lipitor -) 40 mg PO HS [facility] Last Admin: 02/19/17 21:56 Dose: 40 mg Chlorhexidine Gluconate (Hibiclens For Decolonization -) 1 applic TP HS [facility] Last Admin: 02/19/17 21:56 Dose: 1 applic Collagenase (Santyl -) 1 applic TP DAILY [facility] Last Admin: 02/19/17 10:56 Dose: Not Given Enoxaparin Sodium (Lovenox -) 100 mg SQ BID [facility] Last Admin: 02/20/17 11:24 Dose: 100 mg Gabapentin (Neurontin -) 100 mg PO TID [facility] Last Admin: 02/20/17 14:35 Dose: Not Given IV Flush (Picc Line Flush) 8 ml IVPUSH PRN PRN PRN Reason: Protocol Sodium Chloride (Normal Saline -) 1,000 mls @ 100 mls/hr IV ASDIR [facility] Last Admin: 02/19/17 23:22 Dose: 100 mls/hr Piperacillin Sod/Tazobactam Sod (Zosyn 3.375gm Ivpb (Pre-Docked)) 50 mls @ 100 mls/hr IVPB Q8H-IV [facility] PRN Reason: Protocol Last Admin: 02/20/17 19:17 Dose: 100 mls/hr Methadone HCl (Dolophine -) 20 mg PO BID [facility] Metoprolol Tartrate (Lopressor -) 25 mg PO BID [facility] Last Admin: 02/20/17 11:23 Dose: Not Given Morphine Sulfate (Ms Contin -) 15 mg PO TID [facility] Last Admin: 02/20/17 14:32 Dose: Not Given Morphine Sulfate (Morphine Injection -) 2 mg IVPUSH DAILY [facility] Last Admin: 02/20/17 18:39 Dose: 2 mg Ondansetron HCl (Zofran Injection) 4 mg IVPB Q8H PRN PRN Reason: NAUSEA AND/OR VOMITING Last Admin: 02/20/17 16:16 Dose: 4 mg Ranitidine HCl (Zantac -) 150 mg PO DAILY [facility] Last Admin: 02/20/17 11:22 Dose: 150 mg Vital Signs - 24 hr 02/19/17 02/20/17 02/20/17 22:00 02:00 06:00 Temperature 97.0 F L 98.1 F Pulse Rate 82 75 79 Respiratory 18 20 20 Rate Blood Pressure 134/62 119/69 99/61 O2 Sat by Pulse 95 Oximetry (%) 02/20/17 02/20/17 02/20/17 11:21 14:20 18:08 Temperature 97.4 F L 97.5 F L Pulse Rate 68 71 65 Respiratory 20 20 20 Rate Blood Pressure 102/60 107/52 112/60 O2 Sat by Pulse Oximetry (%) Intake & Output 02/18/17 02/19/17 02/20/17 02/21/17 07:59 07:59 07:59 07:59 Intake Total 2170 2700 3260 50 Output Total 650 650 600 230 Balance 1520 2050 2660 -180 Weight 258 lb 6.4 oz nad, calm JVD mild elevation, neck supple bibasilar dullness, nl effort irregularly irregular. nl s1, s2, 1/6 sys murmur at lsb. + bs soft nt nd 1-2+ tense dependent edema to mid back erythema of LE. wounds covered in dressings diminshed dp/pt no carotid bruits + diaphoresis, no jaundice. aaox3 CBC, BMP 02/20/17 18:00 02/20/17 18:00 EKG: coarse afib vs. flutter with rvr. non-specific t wave abnormalities. no acute ischemic changes/ tele: afib 100's-110's cxr: poor quality, poor inspiration 76 yo chronically ill woman with h/o a fib and CVA 6 mo ago at [facility] (possibly on xarelto), HTN, chronic venous stasis ulcers/lymphedema followed by wound care, chronic pain 2/2 LE ulcers with h/o of opioid abuse, asthma, p/w worsening pain/ confusion. afib - currently reasonable rate control given clinical condition on metoprolol - Would clarify with pmd whether she has been on AC as outpatient, conflicting reports. - con't heparin drip for now. Ordered head CT given altered mental status, h/o CVA. - echowithout significant abnormality LE edema/anasarca. - high suspicion for underlying diastolic dysfunction and chronic volume overload. Currently hypotensive and infected so ok to hold diuretics, but will need diuresis once hemodynamically stable and infection controlled. - worsening renal function. Unclear if related to excess fluids. Will re- evaluate tomorrow. renal consult per pmd Increased troponin - Borderline elevation in setting of demand, not consistent with ACS. May have underlying CAD and can consider risk/benefit of ischemic work up once acute issues stabilize. - CK elevation out of proportion, consider skeletal muscle source. Compartment syndrome, rhabdo etc... Ongoing management per pmd, vascular. chronic venous stasis ulcers - per pmd, id, vascular HTN - currently hypotensive. tolerating metoprolol for rate control h/o CVA - AC as above. t statin
[2017-02-20] MEDS: ATORVASTATIN CA 40 MG TABLET (FP) PO SCH (22:52)
[2017-02-20] MEDS: CHLORHEXIDINE GLUCONATE 4% CLEANSER FOR DECOLONIZATION TP SCH (22:57)
[2017-02-20] MEDS: SODIUM CHLORIDE 1,000 ML IV SCH (23:15)
[2017-02-21] MEDS: PIPERACILLIN/TAZOB 3.375 GM 50 ML IVPB SCH ×3 (02:44→18:42)
[2017-02-21] MEDS: morphine SO4 SUSTAINED ACTING 15 MG TABLET.SA PO SCH ×3 (07:08→22:32)
[2017-02-21] MEDS: GABAPENTIN 100 MG CAPSULE (FP) PO SCH ×3 (07:08→22:32)
[2017-02-21] MEDS ORDERED: morphine CARPU-JECT 2 MG/1 ML DISP.SYRIN IVPUSH SCH (10:00)
[2017-02-21] MEDS: METOPROLOL TARTRATE 25 MG TABLET (FP) PO SCH ×2 (10:05→22:31)
[2017-02-21] MEDS: ONDANSETRON 4 MG/2 ML VIAL IVPB PRN (10:28)
[2017-02-21] MEDS: ENOXAPARIN NA (PORCINE) 100 MG/1 ML DISP.SYRIN SQ SCH ×2 (10:30→22:33)
[2017-02-21 10:41] LABS: ALBUMIN 1.4 g/dl (3.4-5.0); BILIRUBIN,TOTAL 0.6 mg/dL (0.2-1.0); COCKROFT - GAULT 29.1295; CREATININE 3.1 mg/dL (0.55-1.02); TOT PROT 6.6 g/dl (6.4-8.2)
[2017-02-21] MEDS: RANITIDINE HCL 150 MG TABLET (FP) PO SCH (11:12)
--- NOTE | 2017-02-21 11:12 | PN ---
Progress Note, Physician History of Present Illness: Awake, mildly confused No c/o leg pain Afebrile WBC continues to improve - Current Medication List Current Medications: Active Medications Acetaminophen (Tylenol -) 650 mg PO Q6H PRN PRN Reason: FEVER OR PAIN Last Admin: 02/18/17 23:28 Dose: 650 mg Atorvastatin Calcium (Lipitor -) 40 mg PO HS [facility] Last Admin: 02/20/17 22:52 Dose: 40 mg Chlorhexidine Gluconate (Hibiclens For Decolonization -) 1 applic TP HS [facility] Last Admin: 02/20/17 22:57 Dose: 1 applic Collagenase (Santyl -) 1 applic TP DAILY [facility] Last Admin: 02/19/17 10:56 Dose: Not Given Enoxaparin Sodium (Lovenox -) 100 mg SQ BID [facility] Last Admin: 02/20/17 22:52 Dose: 100 mg Furosemide (Lasix Injection -) 80 mg IVPUSH ONCE ONE Stop: 02/21/17 11:06 Gabapentin (Neurontin -) 100 mg PO TID [facility] Last Admin: 02/21/17 07:08 Dose: 100 mg IV Flush (Picc Line Flush) 8 ml IVPUSH PRN PRN PRN Reason: Protocol Piperacillin Sod/Tazobactam Sod (Zosyn 3.375gm Ivpb (Pre-Docked)) 50 mls @ 100 mls/hr IVPB Q8H-IV [facility] PRN Reason: Protocol Last Admin: 02/21/17 02:44 Dose: 100 mls/hr Methadone HCl (Dolophine -) 20 mg PO BID [facility] Last Admin: 02/20/17 22:52 Dose: 20 mg Metoprolol Tartrate (Lopressor -) 25 mg PO BID [facility] Last Admin: 02/21/17 10:05 Dose: Not Given Morphine Sulfate (Ms Contin -) 15 mg PO TID [facility] Last Admin: 02/21/17 07:08 Dose: 15 mg Morphine Sulfate (Morphine Injection -) 2 mg IVPUSH DAILY [facility] Last Admin: 02/20/17 18:39 Dose: 2 mg Ondansetron HCl (Zofran Injection) 4 mg IVPB Q8H PRN PRN Reason: NAUSEA AND/OR VOMITING Last Admin: 02/21/17 10:28 Dose: 4 mg Ranitidine HCl (Zantac -) 150 mg PO DAILY [facility] Last Admin: 02/20/17 11:22 Dose: 150 mg - Objective Vital Signs: Vital Signs Temperature 97.2 F L 02/21/17 09:59 Pulse Rate 61 02/21/17 09:59 Respiratory Rate 28 H 02/21/17 09:59 Blood Pressure 99/43 02/21/17 09:59 O2 Sat by Pulse Oximetry (%) 93 L 02/20/17 21:00 Constitutional: Yes: No Distress, Obese Eyes: Yes: Conjunctiva Clear Cardiovascular: Yes: Regular Rate and Rhythm, S1, S2 Respiratory: Yes: Diminished Gastrointestinal: Yes: Normal Bowel Sounds, Soft. No: Tenderness Extremities: Yes: Other (decreasing LE edema/ erythema) Edema: Yes Labs: CBC, BMP 02/21/17 09:20 INR, PTT INR 1.54 (0.82-1.09) H 02/13/17 05:30 Assessment/Plan Sepsis/ septic shock- resolved Infected chronic venous stasis ulcers Bilateral LE cellulitis/ lymphangitis R>L- extending to lateral thighs B/L Toxic metabolic encephalopathy Leukocytosis- improved Continue zosyn. Local wound care
[2017-02-21] MEDS: METHADONE HCL 10 MG TABLET PO SCH ×2 (11:13→22:31)
[2017-02-21 11:43] LABS: CALCIUM 6.9 mg/dL (8.5-10.1)
[2017-02-21] MEDS: FUROSEMIDE 40 MG/4 ML INJECTABLE VIAL IVPUSH ONE ×2 (11:45→14:58)
[2017-02-21 13:42] LABS: BASOPHIL 0.4 % (0-2.0); EOSINOPHIL 0.9 % (0-4.5); MCH 24.4 pg (25.7-33.7); MCHC 30.8 g/dl (32.0-36.0); MEAN CELL VOLUME 79.2 fl (80-96); MEAN PLT VOLUME 7.9 fl (7.5-11.1); NEUTROPHILS 80.3 % (42.8-82.8); PLATELET COUNT 282 K/MM3 (134-434); RDW 20.7 % (11.6-15.6); WHITE BLOOD COUNT 10.5 K/mm3 (4.0-10.0)
[2017-02-21] MEDS: morphine CARPU-JECT 2 MG/1 ML DISP.SYRIN IVPUSH SCH (18:39)
[2017-02-21] MEDS: COLLAGENASE CLOSTRIDIUM HIST. 30 GRAMS TUBE TP SCH (19:00)
--- NOTE | 2017-02-21 19:47 | PN ---
Progress Note, Physician History of Present Illness: No new complaints - Current Medication List Current Medications: Active Medications Acetaminophen (Tylenol -) 650 mg PO Q6H PRN PRN Reason: FEVER OR PAIN Last Admin: 02/18/17 23:28 Dose: 650 mg Atorvastatin Calcium (Lipitor -) 40 mg PO HS [facility] Last Admin: 02/20/17 22:52 Dose: 40 mg Chlorhexidine Gluconate (Hibiclens For Decolonization -) 1 applic TP HS [facility] Last Admin: 02/20/17 22:57 Dose: 1 applic Collagenase (Santyl -) 1 applic TP DAILY [facility] Last Admin: 02/19/17 10:56 Dose: Not Given Enoxaparin Sodium (Lovenox -) 100 mg SQ BID [facility] Last Admin: 02/21/17 10:30 Dose: 100 mg Gabapentin (Neurontin -) 100 mg PO TID [facility] Last Admin: 02/21/17 14:43 Dose: 100 mg IV Flush (Picc Line Flush) 8 ml IVPUSH PRN PRN PRN Reason: Protocol Piperacillin Sod/Tazobactam Sod (Zosyn 3.375gm Ivpb (Pre-Docked)) 50 mls @ 100 mls/hr IVPB Q8H-IV [facility] PRN Reason: Protocol Last Admin: 02/21/17 18:42 Dose: 100 mls/hr Methadone HCl (Dolophine -) 20 mg PO BID [facility] Last Admin: 02/21/17 11:13 Dose: 20 mg Metoprolol Tartrate (Lopressor -) 25 mg PO BID [facility] Last Admin: 02/21/17 10:05 Dose: Not Given Morphine Sulfate (Ms Contin -) 15 mg PO TID [facility] Last Admin: 02/21/17 14:43 Dose: 15 mg Morphine Sulfate (Morphine Injection -) 2 mg IVPUSH DAILY [facility] Last Admin: 02/21/17 18:39 Dose: 2 mg Ondansetron HCl (Zofran Injection) 4 mg IVPB Q8H PRN PRN Reason: NAUSEA AND/OR VOMITING Last Admin: 02/21/17 10:28 Dose: 4 mg Ranitidine HCl (Zantac -) 150 mg PO DAILY [facility] Last Admin: 02/21/17 11:12 Dose: 150 mg - Objective Vital Signs: Vital Signs Temperature 97.4 F L 02/21/17 18:02 Pulse Rate 72 02/21/17 18:35 Respiratory Rate 20 02/21/17 18:35 Blood Pressure 112/60 02/21/17 18:35 O2 Sat by Pulse Oximetry (%) 93 L 02/20/17 21:00 Constitutional: Yes: Well Nourished Cardiovascular: Yes: Pulse Irregular Respiratory: Yes: Diminished Gastrointestinal: Yes: WNL, Normal Bowel Sounds, Abdomen, Obese Extremities: Yes: Other (B/L leg ulcers w/ oozing and erythema of b/l thighs w/ weeping blisters) Labs: CBC, BMP 02/21/17 09:20 02/21/17 09:20 INR, PTT INR 1.54 (0.82-1.09) H 02/13/17 05:30 Problem List - Problems (1) Sepsis Assessment[facility]: [facility] Increasing bun/creatinine Renal consult called Bp still slightly hypotensive Code(s): A41.9 - SEPSIS, UNSPECIFIED ORGANISM (2) Atrial fibrillation with rapid ventricular response Assessment/Plan: Cont lovenox Code(s): I48.91 - UNSPECIFIED ATRIAL FIBRILLATION (3) Lymphedema of both lower extremities Code(s): I89.0 - LYMPHEDEMA, NOT ELSEWHERE CLASSIFIED (4) Chronic cutaneous venous stasis ulcer Code(s): I83.009 - VARICOSE VEINS OF UNSP LOWER EXTREMITY W ULCER OF UNSP SITE (5) Chronic pain Code(s): G89.29 - OTHER CHRONIC PAIN (6) Diabetes Code(s): E11.9 - TYPE 2 DIABETES MELLITUS WITHOUT COMPLICATIONS (7) HTN (hypertension) Code(s): I10 - ESSENTIAL (PRIMARY) HYPERTENSION (8) Morbid obesity Code(s): E66.01 - MORBID (SEVERE) OBESITY DUE TO EXCESS CALORIES (9) Altered mental state Code(s): R41.82 - ALTERED MENTAL STATUS, UNSPECIFIED
--- NOTE | 2017-02-21 20:39 | PN ---
Progress Note (short form) - Note Progress Note: CC: pain, afib S: Worsening renal failure again today. Patient denies worsening LE edema or abdominal distension. mental status improved. no cp, palps, dizziness, sob. + le pain. Given a trial of IV lasix today. Current Medications Acetaminophen (Tylenol -) 650 mg PO Q6H PRN PRN Reason: FEVER OR PAIN Last Admin: 02/18/17 23:28 Dose: 650 mg Atorvastatin Calcium (Lipitor -) 40 mg PO HS [facility] Last Admin: 02/20/17 22:52 Dose: 40 mg Chlorhexidine Gluconate (Hibiclens For Decolonization -) 1 applic TP HS [facility] Last Admin: 02/20/17 22:57 Dose: 1 applic Collagenase (Santyl -) 1 applic TP DAILY [facility] Last Admin: 02/19/17 10:56 Dose: Not Given Enoxaparin Sodium (Lovenox -) 100 mg SQ BID [facility] Last Admin: 02/21/17 10:30 Dose: 100 mg Gabapentin (Neurontin -) 100 mg PO TID [facility] Last Admin: 02/21/17 14:43 Dose: 100 mg IV Flush (Picc Line Flush) 8 ml IVPUSH PRN PRN PRN Reason: Protocol Piperacillin Sod/Tazobactam Sod (Zosyn 3.375gm Ivpb (Pre-Docked)) 50 mls @ 100 mls/hr IVPB Q8H-IV [facility] PRN Reason: Protocol Last Admin: 02/21/17 18:42 Dose: 100 mls/hr Methadone HCl (Dolophine -) 20 mg PO BID [facility] Last Admin: 02/21/17 11:13 Dose: 20 mg Metoprolol Tartrate (Lopressor -) 25 mg PO BID [facility] Last Admin: 02/21/17 10:05 Dose: Not Given Morphine Sulfate (Ms Contin -) 15 mg PO TID [facility] Last Admin: 02/21/17 14:43 Dose: 15 mg Morphine Sulfate (Morphine Injection -) 2 mg IVPUSH DAILY [facility] Last Admin: 02/21/17 18:39 Dose: 2 mg Ondansetron HCl (Zofran Injection) 4 mg IVPB Q8H PRN PRN Reason: NAUSEA AND/OR VOMITING Last Admin: 02/21/17 10:28 Dose: 4 mg Ranitidine HCl (Zantac -) 150 mg PO DAILY [facility] Last Admin: 02/21/17 11:12 Dose: 150 mg Vital Signs - 24 hr 02/20/17 02/20/17 02/21/17 21:00 22:00 02:00 Temperature 97.8 F 97.8 F Pulse Rate 108 H 80 Respiratory 20 22 22 Rate Blood Pressure 135/63 114/56 O2 Sat by Pulse 93 L Oximetry (%) 02/21/17 02/21/17 02/21/17 06:00 09:59 11:55 Temperature 97.2 F L 97.2 F L 97.6 F Pulse Rate 87 61 61 Respiratory 20 28 H 18 Rate Blood Pressure 104/67 99/43 117/71 O2 Sat by Pulse Oximetry (%) 02/21/17 02/21/17 02/21/17 12:00 14:15 18:02 Temperature 97.4 F L 97.6 F 97.4 F L Pulse Rate 90 60 64 Respiratory 18 24 18 Rate Blood Pressure 90/50 117/71 106/65 O2 Sat by Pulse Oximetry (%) 02/21/17 18:35 Temperature Pulse Rate 72 Respiratory 20 Rate Blood Pressure 112/60 O2 Sat by Pulse Oximetry (%) Intake & Output 02/19/17 02/20/17 02/21/17 02/22/17 07:59 07:59 07:59 07:59 Intake Total 2700 3260 2300 855 Output Total 650 600 280 250 Balance 2050 2660 2020 605 Weight 258 lb 6.4 oz 259 lb 8 oz nad, calm JVD mild elevation, neck supple bibasilar dullness, nl effort irregularly irregular. nl s1, s2, 1/6 sys murmur at lsb. + bs soft nt nd 1-2+ tense dependent edema to mid back erythema of LE. wounds covered in dressings diminshed dp/pt no carotid bruits + diaphoresis, no jaundice. aaox3 CBC, BMP 02/21/17 09:20 02/21/17 09:20 EKG: coarse afib vs. flutter with rvr. non-specific t wave abnormalities. no acute ischemic changes/ tele: afib 100's-110's cxr: poor quality, poor inspiration 76 yo chronically ill woman with h/o a fib and CVA 6 mo ago at [facility] (possibly on xarelto), HTN, chronic venous stasis ulcers/lymphedema followed by wound care, chronic pain 2/2 LE ulcers with h/o of opioid abuse, asthma, p/w worsening pain/ confusion. afib - currently reasonable rate control given clinical condition on metoprolol - Would clarify with pmd whether she has been on AC as outpatient, conflicting reports. - con't lovenox. - echo without significant abnormality LE edema/anasarca. - high suspicion for underlying diastolic dysfunction and chronic volume overload. Had active infection and borderline low bp's so initially held diuretics and was receiving IVF. - 02/21: Renal function still worsening despite improving infection. Possibly from renal congestion. Gave trial of lasix today and bp's remained stable. Will repeat bmp this evening and if creatinine stable will initiate IV diuretic regimen. Otherwise, consider resuming fluids. Renal consult at discretion of pmd. Increased troponin - Borderline elevation in setting of demand, not consistent with ACS. May have underlying CAD and can consider risk/benefit of ischemic work up once acute issues stabilize. - CK elevation out of proportion, consider skeletal muscle source. Compartment syndrome, rhabdo etc... Now s/p IVF chronic venous stasis ulcers - per pmd, id, vascular HTN - Borderline low. tolerating metoprolol for rate control. con't to monitor. Pain control per pmd. h/o CVA - AC as above. statin
[2017-02-21] MEDS: ATORVASTATIN CA 40 MG TABLET (FP) PO SCH (22:31)
[2017-02-21] MEDS: CHLORHEXIDINE GLUCONATE 4% CLEANSER FOR DECOLONIZATION TP SCH (22:33)
[2017-02-22 00:53] LABS: COCKROFT - GAULT 28.22; CREATININE 3.2 mg/dL (0.55-1.02)
[2017-02-22] MEDS: PIPERACILLIN/TAZOB 3.375 GM 50 ML IVPB SCH ×3 (02:01→17:20)
[2017-02-22] MEDS: morphine SO4 SUSTAINED ACTING 15 MG TABLET.SA PO SCH ×3 (05:32→21:55)
[2017-02-22] MEDS: GABAPENTIN 100 MG CAPSULE (FP) PO SCH ×3 (05:33→21:54)
[2017-02-22] MEDS: METHADONE HCL 10 MG TABLET PO SCH ×2 (09:36→21:55)
[2017-02-22] MEDS: RANITIDINE HCL 150 MG TABLET (FP) PO SCH (09:36)
[2017-02-22] MEDS: ENOXAPARIN NA (PORCINE) 100 MG/1 ML DISP.SYRIN SQ SCH ×2 (09:37→21:56)
[2017-02-22] MEDS: METOPROLOL TARTRATE 25 MG TABLET (FP) PO SCH ×2 (09:37→21:55)
[2017-02-22] MEDS: FUROSEMIDE 40 MG/4 ML INJECTABLE VIAL IVPUSH SCH ×2 (11:19→17:19)
[2017-02-22 13:13] LABS: CALCIUM 7.1 mg/dL (8.5-10.1); COCKROFT - GAULT 27.37; CREATININE 3.3 mg/dL (0.55-1.02)
[2017-02-22] MEDS: morphine CARPU-JECT 2 MG/1 ML DISP.SYRIN IVPUSH SCH (15:24)
[2017-02-22] MEDS: COLLAGENASE CLOSTRIDIUM HIST. 30 GRAMS TUBE TP SCH (15:24)
--- NOTE | 2017-02-22 18:15 | PN ---
Progress Note (short form) - Note Progress Note: CC: pain, afib S: Awake, but speech more slurred today. Checked blood sugar and wnl. Patient endorsing LE pain. No cp, palps, sob. Received IV lasix x 1 today. Current Medications Acetaminophen (Tylenol -) 650 mg PO Q6H PRN PRN Reason: FEVER OR PAIN Last Admin: 02/18/17 23:28 Dose: 650 mg Atorvastatin Calcium (Lipitor -) 40 mg PO HS [facility] Last Admin: 02/21/17 22:31 Dose: 40 mg Chlorhexidine Gluconate (Hibiclens For Decolonization -) 1 applic TP HS [facility] Last Admin: 02/21/17 22:33 Dose: 1 applic Collagenase (Santyl -) 1 applic TP DAILY [facility] Last Admin: 02/22/17 15:24 Dose: Not Given Enoxaparin Sodium (Lovenox -) 100 mg SQ BID [facility] Last Admin: 02/22/17 09:37 Dose: 100 mg Furosemide (Lasix Injection -) 80 mg IVPUSH BID@0600,1400 [facility] Last Admin: 02/22/17 17:19 Dose: 80 mg Gabapentin (Neurontin -) 100 mg PO TID [facility] Last Admin: 02/22/17 15:28 Dose: Not Given IV Flush (Picc Line Flush) 8 ml IVPUSH PRN PRN PRN Reason: Protocol Piperacillin Sod/Tazobactam Sod (Zosyn 3.375gm Ivpb (Pre-Docked)) 50 mls @ 100 mls/hr IVPB Q8H-IV [facility] PRN Reason: Protocol Last Admin: 02/22/17 17:20 Dose: 100 mls/hr Methadone HCl (Dolophine -) 20 mg PO BID [facility] Last Admin: 02/22/17 09:36 Dose: 20 mg Metoprolol Tartrate (Lopressor -) 25 mg PO BID [facility] Last Admin: 02/22/17 09:37 Dose: Not Given Morphine Sulfate (Ms Contin -) 15 mg PO TID [facility] Last Admin: 02/22/17 15:28 Dose: Not Given Morphine Sulfate (Morphine Injection -) 2 mg IVPUSH DAILY [facility] Last Admin: 02/22/17 15:24 Dose: Not Given Ondansetron HCl (Zofran Injection) 4 mg IVPB Q8H PRN PRN Reason: NAUSEA AND/OR VOMITING Last Admin: 02/21/17 10:28 Dose: 4 mg Ranitidine HCl (Zantac -) 150 mg PO DAILY [facility] Last Admin: 02/22/17 09:36 Dose: 150 mg Vital Signs - 24 hr 02/21/17 02/21/17 02/22/17 18:35 22:00 02:00 Temperature 98.2 F 97.9 F Pulse Rate 72 79 68 Respiratory 20 20 18 Rate Blood Pressure 112/60 122/64 116/59 O2 Sat by Pulse 94 L Oximetry (%) 02/22/17 02/22/17 02/22/17 06:00 09:00 14:00 Temperature 98.2 F 98.9 F Pulse Rate 79 76 72 Respiratory 20 22 22 Rate Blood Pressure 130/91 99/50 119/44 O2 Sat by Pulse 92 L Oximetry (%) Intake & Output 02/20/17 02/21/17 02/22/17 02/23/17 07:59 07:59 07:59 07:59 Intake Total 3260 2300 1455 100 Output Total 600 280 250 400 Balance 2660 2020 1205 -300 Weight 259 lb 8 oz nad, calm. diaphoretic. JVD mild elevation, neck supple bibasilar dullness, nl effort irregularly irregular. nl s1, s2, 1/6 sys murmur at lsb. + bs soft nt nd 1-2+ tense dependent edema to mid back erythema of LE. wounds covered in dressings diminshed dp/pt no carotid bruits + diaphoresis, no jaundice. aaox3 CBC, BMP 02/21/17 09:20 02/22/17 12:10 EKG: coarse afib vs. flutter with rvr. non-specific t wave abnormalities. no acute ischemic changes/ cxr: poor quality, poor inspiration echo here: tds but grossly nl lv/rv size/fn. 1+ lae, 1+ tr. rvsp 42, bline ao dilation. renal u/s here: wnl 76 yo chronically ill woman with h/o a fib and CVA 6 mo ago at [facility] (possibly on xarelto), HTN, chronic venous stasis ulcers/lymphedema followed by wound care, chronic pain 2/2 LE ulcers with h/o of opioid abuse, asthma, p/w worsening pain/ confusion. afib - currently reasonable rate control given clinical condition on metoprolol - Would clarify with pmd whether she has been on AC as outpatient, conflicting reports. - con't AC for now. - echo without significant abnormality LE edema/anasarca. - high suspicion for underlying diastolic dysfunction and chronic volume overload. Had active infection and borderline low bp's so initially held diuretics and was receiving IVF. - 02/21: Renal function still worsening despite improving infection. Possibly from renal congestion. Gave trial of lasix today and bp's remained stable. Will repeat bmp this evening and if creatinine stable will initiate IV diuretic regimen. Otherwise, consider resuming fluids. Renal consult at discretion of pmd. - 02/22 s/p lasix 80 mg IV x 1 yesterday and bid today. this morning renal function slightly trending up, but hypernatremia improved. bp improved. Discussed with renal, will try lasix with albumin in am. Increased troponin - Borderline elevation in setting of demand, not consistent with ACS. May have underlying CAD and can consider risk/benefit of ischemic work up once acute issues stabilize. - CK elevation out of proportion, consider skeletal muscle source. Compartment syndrome, rhabdo etc... Now s/p IVF chronic venous stasis ulcers - per pmd, id, vascular HTN - Borderline low. tolerating metoprolol for rate control. con't to monitor. Pain control per pmd. h/o CVA - AC as above. statin.
--- NOTE | 2017-02-22 19:06 | CONSULT ---
Consult Consult Specialty:: Nephrology Reason for Consultation:: LOVE - History of Present Illness Chief Complaint: fever and cellulitis History of Present Illness: Pt is a 76 year old female with pmhx of DM, a-fib, venous insufficiency, HTN, chronic lower extremity ulcers, CVA and chronic back pain who presents to the ER for lower extremity cellulitis and fever. She was admitted and treated for sepsis. I was called to evaluate her for LOVE as her creatinine has been rising. She is arousiable but not able to give history. Chart was reviewed and I talked to her medical attending and adviser sales. Pt was admitted and treated for sepsis. She does have a christina. She has been net positive. - History Source History Provided By: Medical Record Limitations to Obtaining History: Clinical Condition - Past Medical History [employer]: Yes: CVA Cardio/Vascular: Yes: AFIB, HTN, Hyperlipdemia ...: No Infectious Disease: Yes: Other (cellulits) Musculoskeletal: Yes: Chronic low back pain Dermatology: Yes: Cellulitis (chronic bilateral LE), Other (Chronic venous stasis) - Alcohol/Substance Use Hx Alcohol Use: No - Smoking History Smoking history: Former smoker Have you smoked in the past 12 months: No If you are a former smoker, when did you quit?: 30 years ago - Social History Usual Living Arrangement: Alone ADL: Support Services History of Recent Travel: No Home Medications - Allergies Allergies/Adverse Reactions: Allergies Allergy/AdvReac Type Severity Reaction Status Date / Time codeine phosphate AdvReac Mild Nausea Verified 06/01/15 14:24 [From Tylenol-Codeine] - Home Medications Home Medications: Ambulatory Orders Furosemide [Lasix -] 40 mg PO DAILY 02/12/17 Methadone [Dolophine -] 20 mg PO Q8H 02/12/17 Metoprolol Tartrate [Lopressor -] 25 mg PO BID 02/12/17 Morphine Sulfate [Morphine Sulfate ER] 15 mg PO Q4H 02/12/17 Nebivolol HCl [Bystolic] 10 mg PO DAILY 02/12/17 Rivaroxaban [Xarelto -] 15 mg PO DAILY 02/12/17 Spironolactone 50 mg PO DAILY 02/12/17 Family Disease History - Family Disease History Family History: Unable to Obtain Review of Systems Unable to obtain ROS, reason: pt is drowsy Physical Exam Vital Signs: Vital Signs Temperature 98 F 02/22/17 18:41 Pulse Rate 75 02/22/17 18:41 Respiratory Rate 20 02/22/17 18:41 Blood Pressure 140/84 02/22/17 18:41 O2 Sat by Pulse Oximetry (%) 92 L 02/22/17 09:00 Constitutional: Yes: Calm Cardiovascular: Yes: S1, S2 Respiratory: Yes: Rhonchi Gastrointestinal: Yes: Soft, Abdomen, Obese Renal/: Yes: Christina Present Musculoskeletal: Yes: Muscle Weakness Edema: Yes Edema: LLE: 2+, RLE: 2+ Integumentary: Yes: Erythema, Other (lower extremity ulcers) Neurological: Yes: Lethargy Labs: CBC, BMP 02/21/17 09:20 02/22/17 12:10 Laboratory Tests 04/05/14 05/07/15 02/12/17 15:30 11:15 13:37 WBC Hgb Plt Count Sodium Potassium Chloride Carbon Dioxide Anion Gap BUN Creatinine 0.9 1.0 1.7 H D Calcium Albumin Urine Color Urine Appearance Urine pH Ur Specific [place] Urine Protein Urine Glucose (UA) Urine Ketones Urine Blood Urine Nitrite Urine Bilirubin Vancomycin Trough Random Vancomycin Opiates Screen Methadone Screen 02/12/17 02/13/17 02/13/17 22:20 05:30 10:00 WBC Hgb Plt Count Sodium Potassium Chloride Carbon Dioxide Anion Gap BUN Creatinine 1.4 H Calcium Albumin Urine Color Red Urine Appearance Turbid Urine pH 5.0 Ur Specific [place] 1.028 Urine Protein 1+ H Urine Glucose (UA) Negative Urine Ketones Negative Urine Blood Negative Urine Nitrite Negative Urine Bilirubin 2.0 Vancomycin Trough Random Vancomycin Opiates Screen Positive Methadone Screen Positive 02/15/17 02/16/17 02/16/17 05:35 05:35 05:35 WBC 25.9 H Hgb Plt Count Sodium Potassium Chloride Carbon Dioxide Anion Gap BUN Creatinine 1.4 H 1.5 H Calcium Albumin Urine Color Urine Appearance Urine pH Ur Specific [place] Urine Protein Urine Glucose (UA) Urine Ketones Urine Blood Urine Nitrite Urine Bilirubin Vancomycin Trough Random Vancomycin Opiates Screen Methadone Screen 02/17/17 02/19/17 02/19/17 07:15 06:15 06:15 WBC 27.2 H 15.4 H Hgb Plt Count Sodium Potassium Chloride Carbon Dioxide Anion Gap BUN Creatinine 1.9 H Calcium Albumin Urine Color Urine Appearance Urine pH Ur Specific [place] Urine Protein Urine Glucose (UA) Urine Ketones Urine Blood Urine Nitrite Urine Bilirubin Vancomycin Trough Random Vancomycin Opiates Screen Methadone Screen 02/20/17 02/20/17 02/20/17 12:15 18:00 18:00 WBC 11.8 H Hgb Plt Count Sodium Potassium Chloride Carbon Dioxide Anion Gap BUN Creatinine 2.8 H D Calcium Albumin Urine Color Urine Appearance Urine pH Ur Specific [place] Urine Protein Urine Glucose (UA) Urine Ketones Urine Blood Urine Nitrite Urine Bilirubin Vancomycin Trough 37.056 H* Random Vancomycin Opiates Screen Methadone Screen 02/21/17 02/21/17 02/22/17 09:20 09:20 00:05 WBC 10.5 H Hgb 7.9 L Plt Count 282 Sodium Potassium Chloride Carbon Dioxide Anion Gap BUN Creatinine 3.1 H 3.2 H Calcium Albumin 1.4 L Urine Color Urine Appearance Urine pH Ur Specific [place] Urine Protein Urine Glucose (UA) Urine Ketones Urine Blood Urine Nitrite Urine Bilirubin Vancomycin Trough Random Vancomycin 28.529 Opiates Screen Methadone Screen 02/22/17 12:10 WBC Hgb Plt Count Sodium 137 Potassium 3.9 Chloride 104 Carbon Dioxide 20 L Anion Gap 13 BUN 63 H Creatinine 3.3 H Calcium 7.1 L Albumin Urine Color Urine Appearance Urine pH Ur Specific [place] Urine Protein Urine Glucose (UA) Urine Ketones Urine Blood Urine Nitrite Urine Bilirubin Vancomycin Trough Random Vancomycin Opiates Screen Methadone Screen Imaging - Results Chest X-ray: Report Reviewed Problem List - Problems (1) LOVE (acute kidney injury) Code(s): N17.9 - ACUTE KIDNEY FAILURE, UNSPECIFIED (2) Altered mental state Code(s): R41.82 - ALTERED MENTAL STATUS, UNSPECIFIED (3) Atrial fibrillation with rapid ventricular response Code(s): I48.91 - UNSPECIFIED ATRIAL FIBRILLATION (4) Cellulitis of both lower extremities Code(s): L03.115 - CELLULITIS OF RIGHT LOWER LIMB L03.116 - CELLULITIS OF LEFT LOWER LIMB (5) HTN (hypertension) Code(s): I10 - ESSENTIAL (PRIMARY) HYPERTENSION (6) Lymphedema Code(s): I89.0 - LYMPHEDEMA, NOT ELSEWHERE CLASSIFIED (7) Morbid obesity Code(s): E66.01 - MORBID (SEVERE) OBESITY DUE TO EXCESS CALORIES (8) Diabetes Code(s): E11.9 - TYPE 2 DIABETES MELLITUS WITHOUT COMPLICATIONS (9) Opioid dependence Code(s): F11.20 - OPIOID DEPENDENCE, UNCOMPLICATED Assessment/Plan Current Medications Generic Name Dose Route Start Last Admin Trade Name Freq PRN Reason Stop Dose Admin Acetaminophen 650 mg 02/13/17 14:54 02/18/17 23:28 Tylenol - PO 650 mg Q6H PRN Administration FEVER OR PAIN Atorvastatin Calcium 40 mg 02/14/17 22:00 02/21/17 22:31 Lipitor - PO 40 mg HS [facility] Administration Chlorhexidine Gluconate 1 applic 02/13/17 22:00 02/21/17 22:33 Hibiclens For Decolonization - TP 1 applic HS [facility] Administration Collagenase 1 applic 02/13/17 17:30 02/22/17 15:24 Santyl - TP Not Given DAILY [facility] Enoxaparin Sodium 100 mg 02/17/17 12:15 02/22/17 09:37 Lovenox - SQ 100 mg BID [facility] Administration Furosemide 80 mg 02/22/17 10:30 02/22/17 17:19 Lasix Injection - IVPUSH 80 mg BID@0600,1400 [facility] Administration Gabapentin 100 mg 02/17/17 22:00 02/22/17 15:28 Neurontin - PO Not Given TID [facility] IV Flush 8 ml 02/15/17 00:20 Picc Line Flush IVPUSH PRN PRN Protocol Piperacillin Sod/Tazobactam Sod 50 mls @ 100 mls/hr 02/17/17 13:00 02/22/17 17: 20 Zosyn 3.375gm Ivpb (Pre-Docked) IVPB 100 mls/hr Q8H-IV [facility] Administration Protocol Methadone HCl 20 mg 02/20/17 22:00 02/22/17 09:36 Dolophine - PO 20 mg BID [facility] Administration Metoprolol Tartrate 25 mg 02/13/17 22:00 02/22/17 09:37 Lopressor - PO Not Given BID [facility] Morphine Sulfate 15 mg 02/17/17 22:00 02/22/17 15:28 Ms Contin - PO Not Given TID [facility] Morphine Sulfate 2 mg 02/20/17 16:15 02/22/17 15:24 Morphine Injection - IVPUSH Not Given DAILY [facility] Ondansetron HCl 4 mg 02/20/17 15:56 02/21/17 10:28 Zofran Injection IVPB 4 mg Q8H PRN Administration NAUSEA AND/OR VOMITING Ranitidine HCl 150 mg 02/14/17 10:00 02/22/17 09:36 Zantac - PO 150 mg DAILY [facility] Administration Impression 1. LOVE 2. fluid overload 3. cellulitis/lymphangitis 4. lower extremity ulcers 5. a-fib 6. chronic back pain 7. DM 8. HTN 9. hyperlipidemia Plan - will order workup for LOVE including UA, urine electrolytes, urine creatinine and urea - check renal ultrasound - monitor urine output - get cxr - pt appears volume overloaded, agree will lasix, can give albumin with lasix. Pt was on spironolactone and lasix at home prior to admission - will check urine eos - case discussed with cardio - cont wound care - pt for possible transfer to [facility] - will follow Dr Fuentes
[2017-02-22 20:38] LABS: URINE APPEARANCE SLCLOUDY; URINE BILIRUBIN NEGATIVE (NEGATIVE); URINE COLOR YELLOW; URINE GLUCOSE (UA) NEGATIVE (NEGATIVE); URINE KETONE NEGATIVE (NEGATIVE); URINE NITRITE NEGATIVE (NEGATIVE); URINE PROTEIN NEGATIVE (NEGATIVE); URINE UROBILINOGEN NEGATIVE E.U./dl (0.2-1.0)
[2017-02-22 20:40] LABS: URINE BLOOD 3+ (NEGATIVE); URINE LEUK ESTERASE TRACE (NEGATIVE)
[2017-02-22 20:44] LABS: URINE BACTERIA RARE /hpf (NONE SEEN); URINE RBC <1 /hpf (0-3)
[2017-02-22] MEDS: ATORVASTATIN CA 40 MG TABLET (FP) PO SCH (21:54)
[2017-02-22] MEDS: CHLORHEXIDINE GLUCONATE 4% CLEANSER FOR DECOLONIZATION TP SCH (22:13)
--- NOTE | 2017-02-22 22:25 | PN ---
Progress Note, Physician History of Present Illness: No new complaints - Current Medication List Current Medications: Active Medications Acetaminophen (Tylenol -) 650 mg PO Q6H PRN PRN Reason: FEVER OR PAIN Last Admin: 02/18/17 23:28 Dose: 650 mg Albumin Human (Albumin Human 25%) 25 gm IVPB Q8H [facility] Stop: 02/23/17 14:01 Atorvastatin Calcium (Lipitor -) 40 mg PO HS [facility] Last Admin: 02/22/17 21:54 Dose: 40 mg Chlorhexidine Gluconate (Hibiclens For Decolonization -) 1 applic TP HS [facility] Last Admin: 02/22/17 22:13 Dose: Not Given Collagenase (Santyl -) 1 applic TP DAILY [facility] Last Admin: 02/22/17 15:24 Dose: Not Given Enoxaparin Sodium (Lovenox -) 100 mg SQ BID [facility] Last Admin: 02/22/17 21:56 Dose: 100 mg Furosemide (Lasix Injection -) 80 mg IVPUSH BID@0600,1400 [facility] Last Admin: 02/22/17 17:19 Dose: 80 mg Gabapentin (Neurontin -) 100 mg PO TID [facility] Last Admin: 02/22/17 21:54 Dose: 100 mg IV Flush (Picc Line Flush) 8 ml IVPUSH PRN PRN PRN Reason: Protocol Piperacillin Sod/Tazobactam Sod (Zosyn 3.375gm Ivpb (Pre-Docked)) 50 mls @ 100 mls/hr IVPB Q8H-IV [facility] PRN Reason: Protocol Last Admin: 02/22/17 17:20 Dose: 100 mls/hr Methadone HCl (Dolophine -) 20 mg PO BID [facility] Last Admin: 02/22/17 21:55 Dose: 20 mg Metoprolol Tartrate (Lopressor -) 25 mg PO BID [facility] Last Admin: 02/22/17 21:55 Dose: 25 mg Morphine Sulfate (Ms Contin -) 15 mg PO TID [facility] Last Admin: 02/22/17 21:55 Dose: 15 mg Morphine Sulfate (Morphine Injection -) 2 mg IVPUSH DAILY [facility] Last Admin: 02/22/17 15:24 Dose: Not Given Ondansetron HCl (Zofran Injection) 4 mg IVPB Q8H PRN PRN Reason: NAUSEA AND/OR VOMITING Last Admin: 02/21/17 10:28 Dose: 4 mg Ranitidine HCl (Zantac -) 150 mg PO DAILY [facility] Last Admin: 02/22/17 09:36 Dose: 150 mg - Objective Vital Signs: Vital Signs Temperature 98 F 02/22/17 18:41 Pulse Rate 75 02/22/17 18:41 Respiratory Rate 20 02/22/17 18:41 Blood Pressure 140/84 02/22/17 18:41 O2 Sat by Pulse Oximetry (%) 92 L 02/22/17 09:00 Cardiovascular: Yes: WNL, Regular Rate and Rhythm Respiratory: Yes: WNL, Regular, CTA Bilaterally Gastrointestinal: Yes: WNL, Normal Bowel Sounds, Soft Labs: CBC, BMP 02/21/17 09:20 02/22/17 12:10 INR, PTT INR 1.54 (0.82-1.09) H 02/13/17 05:30 Problem List - Problems (1) Sepsis Code(s): A41.9 - SEPSIS, UNSPECIFIED ORGANISM (2) Atrial fibrillation with rapid ventricular response Code(s): I48.91 - UNSPECIFIED ATRIAL FIBRILLATION (3) Lymphedema of both lower extremities Code(s): I89.0 - LYMPHEDEMA, NOT ELSEWHERE CLASSIFIED (4) Chronic cutaneous venous stasis ulcer Code(s): I83.009 - VARICOSE VEINS OF UNSP LOWER EXTREMITY W ULCER OF UNSP SITE (5) Chronic pain Code(s): G89.29 - OTHER CHRONIC PAIN (6) Diabetes Code(s): E11.9 - TYPE 2 DIABETES MELLITUS WITHOUT COMPLICATIONS (7) HTN (hypertension) Code(s): I10 - ESSENTIAL (PRIMARY) HYPERTENSION (8) Morbid obesity Code(s): E66.01 - MORBID (SEVERE) OBESITY DUE TO EXCESS CALORIES (9) Altered mental state Code(s): R41.82 - ALTERED MENTAL STATUS, UNSPECIFIED
[2017-02-23] MEDS: PIPERACILLIN/TAZOB 3.375 GM 50 ML IVPB SCH ×2 (01:57→11:18)
[2017-02-23] MEDS ORDERED: ALBUMIN HUMAN 25% 12.5 GM/50 ML VIAL IVPB SCH (06:00)
[2017-02-23] MEDS: morphine SO4 SUSTAINED ACTING 15 MG TABLET.SA PO SCH ×3 (06:10→22:37)
[2017-02-23] MEDS: GABAPENTIN 100 MG CAPSULE (FP) PO SCH ×3 (06:11→22:37)
[2017-02-23 08:42] LABS: ALBUMIN 1.5 g/dl (3.4-5.0); BILIRUBIN,TOTAL 0.6 mg/dL (0.2-1.0); CALCIUM 7.2 mg/dL (8.5-10.1); COCKROFT - GAULT 25.415; CREATININE 3.5 mg/dL (0.55-1.02)
[2017-02-23] MEDS: FUROSEMIDE 40 MG/4 ML INJECTABLE VIAL IVPUSH SCH (08:55)
[2017-02-23] MEDS: RANITIDINE HCL 150 MG TABLET (FP) PO SCH (11:18)
[2017-02-23] MEDS: METOPROLOL TARTRATE 25 MG TABLET (FP) PO SCH ×2 (11:18→22:37)
[2017-02-23] MEDS: METHADONE HCL 10 MG TABLET PO SCH ×2 (11:19→22:37)
[2017-02-23] MEDS: ENOXAPARIN NA (PORCINE) 100 MG/1 ML DISP.SYRIN SQ SCH (12:41)
--- NOTE | 2017-02-23 13:46 | PN ---
Progress Note, Physician History of Present Illness: Pt seen and examined at bedside. She remains confused. - Current Medication List Current Medications: Active Medications Acetaminophen (Tylenol -) 650 mg PO Q6H PRN PRN Reason: FEVER OR PAIN Last Admin: 02/18/17 23:28 Dose: 650 mg Atorvastatin Calcium (Lipitor -) 40 mg PO HS [facility] Last Admin: 02/22/17 21:54 Dose: 40 mg Chlorhexidine Gluconate (Hibiclens For Decolonization -) 1 applic TP HS [facility] Last Admin: 02/22/17 22:13 Dose: Not Given Collagenase (Santyl -) 1 applic TP DAILY [facility] Last Admin: 02/22/17 15:24 Dose: Not Given Enoxaparin Sodium (Lovenox -) 100 mg SQ BID [facility] Last Admin: 02/23/17 12:41 Dose: 100 mg Gabapentin (Neurontin -) 100 mg PO TID [facility] Last Admin: 02/23/17 06:11 Dose: 100 mg IV Flush (Picc Line Flush) 8 ml IVPUSH PRN PRN PRN Reason: Protocol Piperacillin Sod/Tazobactam Sod (Zosyn 3.375gm Ivpb (Pre-Docked)) 50 mls @ 100 mls/hr IVPB Q8H-IV [facility] PRN Reason: Protocol Last Admin: 02/23/17 11:18 Dose: 100 mls/hr Methadone HCl (Dolophine -) 20 mg PO BID [facility] Last Admin: 02/23/17 11:19 Dose: Not Given Metoprolol Tartrate (Lopressor -) 25 mg PO BID [facility] Last Admin: 02/23/17 11:18 Dose: 25 mg Morphine Sulfate (Ms Contin -) 15 mg PO TID [facility] Last Admin: 02/23/17 06:10 Dose: 15 mg Morphine Sulfate (Morphine Injection -) 2 mg IVPUSH DAILY [facility] Last Admin: 02/22/17 15:24 Dose: Not Given Ondansetron HCl (Zofran Injection) 4 mg IVPB Q8H PRN PRN Reason: NAUSEA AND/OR VOMITING Last Admin: 02/21/17 10:28 Dose: 4 mg Ranitidine HCl (Zantac -) 150 mg PO DAILY [facility] Last Admin: 02/23/17 11:18 Dose: 150 mg - Objective Vital Signs: Vital Signs Temperature 97.6 F 02/23/17 11:15 Pulse Rate 86 02/23/17 11:15 Respiratory Rate 18 02/23/17 11:15 Blood Pressure 126/62 02/23/17 11:15 O2 Sat by Pulse Oximetry (%) 93 L 02/22/17 22:00 Constitutional: Yes: Calm Eyes: Yes: Conjunctiva Clear HENT: Yes: Atraumatic Cardiovascular: Yes: S1, S2 Respiratory: Yes: On Nasal O2 Gastrointestinal: Yes: Soft, Abdomen, Obese Genitourinary: Yes: Brady Present Musculoskeletal: Yes: Muscle Weakness Edema: Yes Integumentary: Yes: Erythema Neurological: Yes: Other (cnfusion) Labs: CBC, BMP 02/21/17 09:20 02/23/17 05:56 INR, PTT INR 1.54 (0.82-1.09) H 02/13/17 05:30 - ....Imaging Ultrasound: Report Reviewed Problem List - Problems (1) LOVE (acute kidney injury) Code(s): N17.9 - ACUTE KIDNEY FAILURE, UNSPECIFIED (2) Altered mental state Code(s): R41.82 - ALTERED MENTAL STATUS, UNSPECIFIED (3) Atrial fibrillation with rapid ventricular response Code(s): I48.91 - UNSPECIFIED ATRIAL FIBRILLATION (4) Cellulitis of both lower extremities Code(s): L03.115 - CELLULITIS OF RIGHT LOWER LIMB L03.116 - CELLULITIS OF LEFT LOWER LIMB (5) HTN (hypertension) Code(s): I10 - ESSENTIAL (PRIMARY) HYPERTENSION (6) Lymphedema Code(s): I89.0 - LYMPHEDEMA, NOT ELSEWHERE CLASSIFIED (7) Morbid obesity Code(s): E66.01 - MORBID (SEVERE) OBESITY DUE TO EXCESS CALORIES (8) Diabetes Code(s): E11.9 - TYPE 2 DIABETES MELLITUS WITHOUT COMPLICATIONS (9) Opioid dependence Code(s): F11.20 - OPIOID DEPENDENCE, UNCOMPLICATED Assessment/Plan Current Medications Generic Name Dose Route Start Last Admin Trade Name Freq PRN Reason Stop Dose Admin Acetaminophen 650 mg 02/13/17 14:54 02/18/17 23:28 Tylenol - PO 650 mg Q6H PRN Administration FEVER OR PAIN Atorvastatin Calcium 40 mg 02/14/17 22:00 02/22/17 21:54 Lipitor - PO 40 mg HS [facility] Administration Chlorhexidine Gluconate 1 applic 02/13/17 22:00 02/22/17 22:13 Hibiclens For Decolonization - TP Not Given HS [facility] Collagenase 1 applic 02/13/17 17:30 02/22/17 15:24 Santyl - TP Not Given DAILY [facility] Enoxaparin Sodium 100 mg 02/17/17 12:15 02/23/17 12:41 Lovenox - SQ 100 mg BID [facility] Administration Gabapentin 100 mg 02/17/17 22:00 02/23/17 06:11 Neurontin - PO 100 mg TID [facility] Administration IV Flush 8 ml 02/15/17 00:20 Picc Line Flush IVPUSH PRN PRN Protocol Piperacillin Sod/Tazobactam Sod 50 mls @ 100 mls/hr 02/17/17 13:00 02/23/17 11: 18 Zosyn 3.375gm Ivpb (Pre-Docked) IVPB 100 mls/hr Q8H-IV [facility] Administration Protocol Methadone HCl 20 mg 02/20/17 22:00 02/23/17 11:19 Dolophine - PO Not Given BID [facility] Metoprolol Tartrate 25 mg 02/13/17 22:00 02/23/17 11:18 Lopressor - PO 25 mg BID [facility] Administration Morphine Sulfate 15 mg 02/17/17 22:00 02/23/17 06:10 Ms Contin - PO 15 mg TID [facility] Administration Morphine Sulfate 2 mg 02/20/17 16:15 02/22/17 15:24 Morphine Injection - IVPUSH Not Given DAILY [facility] Ondansetron HCl 4 mg 02/20/17 15:56 02/21/17 10:28 Zofran Injection IVPB 4 mg Q8H PRN Administration NAUSEA AND/OR VOMITING Ranitidine HCl 150 mg 02/14/17 10:00 02/23/17 11:18 Zantac - PO 150 mg DAILY [facility] Administration Laboratory Tests 02/22/17 02/22/17 19:45 19:45 Urine Protein Negative Urine Eosinophils Pending Impression 1. LOVE 2. fluid overload 3. cellulitis/lymphangitis 4. lower extremity ulcers 5. a-fib 6. chronic back pain 7. DM 8. HTN 9. hyperlipidemia Plan - FENa is 1.35 which is not conclusive - cont with lasix and albumin, will give one dose today and monitor responce, will hold afternoon dose of lasix as creatinine is rising - renal ultrasound reviewe - cont wound care - follow up cxr - pt for possible transfer to [facility] - will follow Dr Fuentes
--- NOTE | 2017-02-23 15:07 | PN ---
Progress Note, Physician History of Present Illness: More awake and alert Mildly confused Afebrile WBC improved - Current Medication List Current Medications: Active Medications Acetaminophen (Tylenol -) 650 mg PO Q6H PRN PRN Reason: FEVER OR PAIN Last Admin: 02/18/17 23:28 Dose: 650 mg Atorvastatin Calcium (Lipitor -) 40 mg PO HS [facility] Last Admin: 02/22/17 21:54 Dose: 40 mg Chlorhexidine Gluconate (Hibiclens For Decolonization -) 1 applic TP HS [facility] Last Admin: 02/22/17 22:13 Dose: Not Given Collagenase (Santyl -) 1 applic TP DAILY [facility] Last Admin: 02/22/17 15:24 Dose: Not Given Enoxaparin Sodium (Lovenox -) 100 mg SQ BID [facility] Last Admin: 02/23/17 12:41 Dose: 100 mg Gabapentin (Neurontin -) 100 mg PO TID [facility] Last Admin: 02/23/17 14:43 Dose: 100 mg IV Flush (Picc Line Flush) 8 ml IVPUSH PRN PRN PRN Reason: Protocol Piperacillin Sod/Tazobactam (Sod 2.25 gm/ Dextrose) 50 mls @ 100 mls/hr IVPB Q8H-IV [facility] PRN Reason: Protocol Methadone HCl (Dolophine -) 20 mg PO BID [facility] Last Admin: 02/23/17 11:19 Dose: Not Given Metoprolol Tartrate (Lopressor -) 25 mg PO BID [facility] Last Admin: 02/23/17 11:18 Dose: 25 mg Morphine Sulfate (Ms Contin -) 15 mg PO TID [facility] Last Admin: 02/23/17 06:10 Dose: 15 mg Morphine Sulfate (Morphine Injection -) 2 mg IVPUSH DAILY [facility] Last Admin: 02/22/17 15:24 Dose: Not Given Ondansetron HCl (Zofran Injection) 4 mg IVPB Q8H PRN PRN Reason: NAUSEA AND/OR VOMITING Last Admin: 02/21/17 10:28 Dose: 4 mg Ranitidine HCl (Zantac -) 150 mg PO DAILY [facility] Last Admin: 02/23/17 11:18 Dose: 150 mg - Objective Vital Signs: Vital Signs Temperature 97.3 F L 02/23/17 13:57 Pulse Rate 93 H 02/23/17 13:57 Respiratory Rate 19 02/23/17 13:57 Blood Pressure 97/45 02/23/17 13:57 O2 Sat by Pulse Oximetry (%) 93 L 02/22/17 22:00 Constitutional: Yes: No Distress, Obese Eyes: Yes: Conjunctiva Clear Cardiovascular: Yes: Regular Rate and Rhythm, S1, S2 Respiratory: Yes: Diminished Gastrointestinal: Yes: Normal Bowel Sounds, Soft, Abdomen, Obese. No: Tenderness Edema: Yes Integumentary: Yes: Other (decreasing erythema and warmth LE bilaterally) Labs: CBC, BMP 02/21/17 09:20 02/23/17 05:56 INR, PTT INR 1.54 (0.82-1.09) H 02/13/17 05:30 Assessment/Plan Sepsis/ septic shock- resolved Infected chronic venous stasis ulcers Bilateral LE cellulitis/ lymphangitis R>L- extending to lateral thighs B/L- improved Toxic metabolic encephalopathy Leukocytosis- improving Continue zosyn, adjusted for azotemia Local wound care
[2017-02-23] MEDS: morphine CARPU-JECT 2 MG/1 ML DISP.SYRIN IVPUSH SCH (18:20)
[2017-02-23] MEDS: PIPERACILLIN/TAZOB 2.25 GM 50 ML IVPB SCH (18:34)
[2017-02-23] MEDS ORDERED: HEPARIN NA (PORCINE) 5,000 UNITS/ML 1ML VIAL IVPUSH PRN ×3 (18:57→19:08)
--- NOTE | 2017-02-23 18:57 | PN ---
Progress Note (short form) - Note Progress Note: CC: afib S: Patients edema significantly improved today. Stopped lovenox and ordered heparin drip because of renal function. Patient just received pain medications for dressing changes. Nurse states while patient was cleaned some small amount of blood was noted in the vaginal area. Patient more sleepy today, per nursing. Current Medications Acetaminophen (Tylenol -) 650 mg PO Q6H PRN PRN Reason: FEVER OR PAIN Last Admin: 02/18/17 23:28 Dose: 650 mg Atorvastatin Calcium (Lipitor -) 40 mg PO HS [facility] Last Admin: 02/22/17 21:54 Dose: 40 mg Chlorhexidine Gluconate (Hibiclens For Decolonization -) 1 applic TP HS [facility] Last Admin: 02/22/17 22:13 Dose: Not Given Collagenase (Santyl -) 1 applic TP DAILY [facility] Last Admin: 02/22/17 15:24 Dose: Not Given Gabapentin (Neurontin -) 100 mg PO TID [facility] Last Admin: 02/23/17 14:43 Dose: 100 mg Heparin Sodium (Porcine) (Heparin -) 1,000 unit IVPUSH PRN PRN PRN Reason: Heparin IV Flush (Picc Line Flush) 8 ml IVPUSH PRN PRN PRN Reason: Protocol Piperacillin Sod/Tazobactam Sod (Zosyn 2.25gm Ivpb (Pre-Docked)) 50 mls @ 100 mls/hr IVPB Q8H-IV [facility] PRN Reason: Protocol Last Admin: 02/23/17 18:34 Dose: 100 mls/hr Heparin Sodium (Porcine) 25, (000 unit/ Sodium Chloride) 500 mls @ 20 mls/hr IV TITR [facility]; 1,000 UNIT/HR PRN Reason: Protocol Methadone HCl (Dolophine -) 20 mg PO BID [facility] Last Admin: 02/23/17 11:19 Dose: Not Given Metoprolol Tartrate (Lopressor -) 25 mg PO BID [facility] Last Admin: 02/23/17 11:18 Dose: 25 mg Morphine Sulfate (Ms Contin -) 15 mg PO TID [facility] Last Admin: 02/23/17 14:00 Dose: Not Given Morphine Sulfate (Morphine Injection -) 2 mg IVPUSH DAILY [facility] Last Admin: 02/23/17 18:20 Dose: 2 mg Ondansetron HCl (Zofran Injection) 4 mg IVPB Q8H PRN PRN Reason: NAUSEA AND/OR VOMITING Last Admin: 02/21/17 10:28 Dose: 4 mg Ranitidine HCl (Zantac -) 150 mg PO DAILY [facility] Last Admin: 02/23/17 11:18 Dose: 150 mg Vital Signs - 24 hr 02/22/17 02/23/17 02/23/17 22:00 02:00 06:00 Temperature 98.0 F 98.6 F Pulse Rate 102 H 92 H 82 Respiratory 18 18 18 Rate Blood Pressure 140/65 132/59 121/59 O2 Sat by Pulse 93 L Oximetry (%) 02/23/17 02/23/17 02/23/17 08:50 11:15 13:57 Temperature 98.1 F 97.6 F 97.3 F L Pulse Rate 90 86 93 H Respiratory 18 18 19 Rate Blood Pressure 115/59 126/62 97/45 O2 Sat by Pulse Oximetry (%) 02/23/17 18:23 Temperature 97.5 F L Pulse Rate 82 Respiratory 20 Rate Blood Pressure 110/58 O2 Sat by Pulse Oximetry (%) Intake & Output 02/21/17 02/22/17 02/23/17 02/24/17 07:59 07:59 07:59 07:59 Intake Total 2300 1455 600 50 Output Total 937 642 6507 300 Balance 2019 1205 -700 -250 Weight 259 lb 8 oz 255 lb 9.6 oz nad, calm. lethargic JVD flat, neck supple bibasilar dullness, poor effort irregularly irregular. nl s1, s2, 1/6 sys murmur at lsb. + bs soft nt nd trace edema, erythema of LE. wounds covered in dressings diminshed dp/pt no carotid bruits no diaphoresis, no jaundice. CBC, BMP 02/21/17 09:20 02/23/17 05:56 echo here: tds but grossly nl lv/rv size/fn. 1+ lae, 1+ tr. rvsp 42, bline ao dilation. renal u/s here: wnl 76 yo chronically ill woman with h/o a fib and CVA 6 mo ago at [facility] (possibly on xarelto), HTN, chronic venous stasis ulcers/lymphedema followed by wound care, chronic pain 2/2 LE ulcers with h/o of opioid abuse, asthma, p/w worsening pain/ confusion. afib - currently reasonable rate control given clinical condition on metoprolol - Would clarify with pmd whether she has been on AC as outpatient, conflicting reports. - had stopped lovenox and switched to heparin drip because of renal function, but will not give heparin and hold all anticoagulation in light of small amount of blood noted in vaginal area upon cleaning patient. Repeat cbc. - echo without significant abnormality LE edema/anasarca. - high suspicion for underlying diastolic dysfunction and chronic volume overload. Had active infection and borderline low bp's so initially held diuretics and was receiving IVF. - 02/21: Renal function still worsening despite improving infection. Possibly from renal congestion. Gave trial of lasix today and bp's remained stable. Will repeat bmp this evening and if creatinine stable will initiate IV diuretic regimen. Otherwise, consider resuming fluids. Renal consult at discretion of pmd. - 02/22 s/p lasix 80 mg IV x 1 yesterday and bid today. this morning renal function slightly trending up, but hypernatremia improved. bp improved. Discussed with renal, will try lasix with albumin in am. - 02/23 s/p lasix with albumin this am. Today with significant resolution of edema. Will stop diuresis. Renal following. Increased troponin - Borderline elevation in setting of demand, not consistent with ACS. May have underlying CAD and can consider risk/benefit of ischemic work up once acute issues stabilize. - CK elevation out of proportion, consider skeletal muscle source. Compartment syndrome, rhabdo etc... Now s/p IVF chronic venous stasis ulcers - per pmd, id, vascular HTN - Borderline low. tolerating metoprolol for rate control. con't to monitor. Pain control per pmd. h/o CVA - AC as above. statin. head ct cancelled. per nursing, patient refused exam.
[2017-02-23] MEDS ORDERED: HEPARIN INFUSION - 500 ML IVPB SCH ×2 (19:15→22:00)
--- NOTE | 2017-02-23 19:57 | PN ---
Progress Note, Physician History of Present Illness: No new complaints - Current Medication List Current Medications: Active Medications Acetaminophen (Tylenol -) 650 mg PO Q6H PRN PRN Reason: FEVER OR PAIN Last Admin: 02/18/17 23:28 Dose: 650 mg Atorvastatin Calcium (Lipitor -) 40 mg PO HS [facility] Last Admin: 02/22/17 21:54 Dose: 40 mg Chlorhexidine Gluconate (Hibiclens For Decolonization -) 1 applic TP HS [facility] Last Admin: 02/22/17 22:13 Dose: Not Given Collagenase (Santyl -) 1 applic TP DAILY [facility] Last Admin: 02/22/17 15:24 Dose: Not Given Gabapentin (Neurontin -) 100 mg PO TID [facility] Last Admin: 02/23/17 14:43 Dose: 100 mg Heparin Sodium (Porcine) (Heparin -) 5,000 unit IVPUSH PRN PRN Heparin Sodium (Porcine) (Heparin -) 1,000 unit IVPUSH PRN PRN IV Flush (Picc Line Flush) 8 ml IVPUSH PRN PRN PRN Reason: Protocol Piperacillin Sod/Tazobactam Sod (Zosyn 2.25gm Ivpb (Pre-Docked)) 50 mls @ 100 mls/hr IVPB Q8H-IV [facility] PRN Reason: Protocol Last Admin: 02/23/17 18:34 Dose: 100 mls/hr Heparin Sodium/Dextrose (Heparin Infusion -) 500 mls @ 20 mls/hr IVPB TITR [facility] ; 1,000 UNITS/HR PRN Reason: Protocol Methadone HCl (Dolophine -) 20 mg PO BID [facility] Last Admin: 02/23/17 11:19 Dose: Not Given Metoprolol Tartrate (Lopressor -) 25 mg PO BID [facility] Last Admin: 02/23/17 11:18 Dose: 25 mg Morphine Sulfate (Ms Contin -) 15 mg PO TID [facility] Last Admin: 02/23/17 14:00 Dose: Not Given Morphine Sulfate (Morphine Injection -) 2 mg IVPUSH DAILY [facility] Last Admin: 02/23/17 18:20 Dose: 2 mg Ondansetron HCl (Zofran Injection) 4 mg IVPB Q8H PRN PRN Reason: NAUSEA AND/OR VOMITING Last Admin: 02/21/17 10:28 Dose: 4 mg Ranitidine HCl (Zantac -) 150 mg PO DAILY [facility] Last Admin: 02/23/17 11:18 Dose: 150 mg - Objective Vital Signs: Vital Signs Temperature 97.5 F L 02/23/17 18:23 Pulse Rate 82 02/23/17 18:23 Respiratory Rate 20 02/23/17 18:23 Blood Pressure 110/58 02/23/17 18:23 O2 Sat by Pulse Oximetry (%) 93 L 02/22/17 22:00 Cardiovascular: Yes: WNL, Regular Rate and Rhythm Respiratory: Yes: WNL, Regular, CTA Bilaterally Gastrointestinal: Yes: WNL, Normal Bowel Sounds, Soft Labs: CBC, BMP 02/21/17 09:20 02/23/17 05:56 INR, PTT INR 1.54 (0.82-1.09) H 02/13/17 05:30 Problem List - Problems (1) Sepsis Code(s): A41.9 - SEPSIS, UNSPECIFIED ORGANISM (2) Atrial fibrillation with rapid ventricular response Code(s): I48.91 - UNSPECIFIED ATRIAL FIBRILLATION (3) Lymphedema of both lower extremities Code(s): I89.0 - LYMPHEDEMA, NOT ELSEWHERE CLASSIFIED (4) Chronic cutaneous venous stasis ulcer Code(s): I83.009 - VARICOSE VEINS OF UNSP LOWER EXTREMITY W ULCER OF UNSP SITE (5) Chronic pain Code(s): G89.29 - OTHER CHRONIC PAIN (6) Diabetes Code(s): E11.9 - TYPE 2 DIABETES MELLITUS WITHOUT COMPLICATIONS (7) HTN (hypertension) Code(s): I10 - ESSENTIAL (PRIMARY) HYPERTENSION (8) Morbid obesity Code(s): E66.01 - MORBID (SEVERE) OBESITY DUE TO EXCESS CALORIES (9) Altered mental state Code(s): R41.82 - ALTERED MENTAL STATUS, UNSPECIFIED
[2017-02-23] MEDS ORDERED: PT OWN MED DRAWER 7, Y5N ONE (20:37)
[2017-02-23 21:11] LABS: MCH 24.6 pg (25.7-33.7); MCHC 32.1 g/dl (32.0-36.0); MEAN CELL VOLUME 76.5 fl (80-96); MEAN PLT VOLUME 8.2 fl (7.5-11.1); PLATELET COUNT 237 K/MM3 (134-434); RDW 20.2 % (11.6-15.6); WHITE BLOOD COUNT 8.6 K/mm3 (4.0-10.0)
[2017-02-23] MEDS ORDERED: HEPARIN - 25,000 UNIT in SODIUM CHLORIDE 495 ML IV SCH (22:00)
[2017-02-23] MEDS: COLLAGENASE CLOSTRIDIUM HIST. 30 GRAMS TUBE TP SCH (22:32)
[2017-02-23] MEDS: CHLORHEXIDINE GLUCONATE 4% CLEANSER FOR DECOLONIZATION TP SCH (22:33)
[2017-02-23] MEDS: ATORVASTATIN CA 40 MG TABLET (FP) PO SCH (22:37)
--- NOTE | 2017-02-23 23:11 | CONSULT ---
Consult - text type - Consultation Consultation Note: NEUROLOGY CONSULTATION is greatly appreciated: This 76 yo woman with h/o HTN, DM, AFib, obesity, chronic ulcers and venous stasis changes and IVDA in past is home with attendants. Meds include methadone (20 BID) plus additional pain meds for chronic back and leg pains. Apparently was on Augmentin for worsening leg ulcers but admitted 02/12/17 with Sepsis and WBC=27.2 K. Now with dropping HCT, Vaginal bleeding, Open wounds on both legs, and increasing renal insufficiency (Cr/BUN=3.5/64, Ca++= 7.2) on Zosyn. Now with worsening mental status. LOUISA: Obese. Both legs bandaged diffusely. +Brady catheter. Neck supple. NEURO: Lethargic but arousable. Confused but Ox [facility] Full EOM's. PE3mm RRLA. Full EOM's. No facial weakness. Moves all fours symmetrically. Areflexic in the legs. IMP: Non-focal exam sig for Moderate, B/L cerebral dysfunction. Probably multifactorial etiology including Drugs (narcosis), and toxic- metabolic factors especially sepsis. Suggest: Hold narcotics. Even consider Narcan Rx. Agree with CT of head tonight. Check B12, TSH, Lytes, Ca++, Mg++. Consider increased hydration vs. renal insufficiency if pt is lethargic and not taking PO well.. Consider repeat BC's and expanding antibiotic Rx if indicated. Is surgical opinion necessary to I & D the thigh abscesses? Thank you very much, Lee Colindres MD
[2017-02-23 23:15] LABS: URINE APPEARANCE TURBID; URINE BILIRUBIN NEGATIVE (NEGATIVE); URINE BLOOD 3+ (NEGATIVE); URINE COLOR DKYELLOW; URINE GLUCOSE (UA) NEGATIVE (NEGATIVE); URINE KETONE NEGATIVE (NEGATIVE)
[2017-02-23 23:16] LABS: URINE BACTERIA MODERATE /hpf (NONE SEEN); URINE LEUK ESTERASE 1+ (NEGATIVE); URINE NITRITE NEGATIVE (NEGATIVE); URINE PROTEIN 1+ (NEGATIVE); URINE RBC 2902 /hpf (0-3); URINE UROBILINOGEN NORMAL E.U./dl (0.2-1.0); URINE WBC 63 /hpf (3-5)
[2017-02-24] MEDS: PIPERACILLIN/TAZOB 2.25 GM 50 ML IVPB SCH ×3 (02:10→17:59)
[2017-02-24] MEDS: morphine SO4 SUSTAINED ACTING 15 MG TABLET.SA PO SCH (06:09)
[2017-02-24] MEDS: GABAPENTIN 100 MG CAPSULE (FP) PO SCH ×3 (06:11→22:28)
[2017-02-24 07:40] LABS: BASOPHIL 0.2 % (0-2.0); EOSINOPHIL 1.6 % (0-4.5); MCH 24.8 pg (25.7-33.7); MCHC 32.1 g/dl (32.0-36.0); MEAN CELL VOLUME 77.2 fl (80-96); MEAN PLT VOLUME 7.8 fl (7.5-11.1); NEUTROPHILS 79.4 % (42.8-82.8); PLATELET COUNT 270 K/MM3 (134-434); RDW 20.1 % (11.6-15.6); WHITE BLOOD COUNT 7.9 K/mm3 (4.0-10.0)
[2017-02-24 07:45] LABS: ALBUMIN 1.8 g/dl (3.4-5.0); CALCIUM 7.3 mg/dL (8.5-10.1)
[2017-02-24 07:50] LABS: BILIRUBIN,TOTAL 0.6 mg/dL (0.2-1.0); COCKROFT - GAULT 27.795; CREATININE 3.2 mg/dL (0.55-1.02)
[2017-02-24] MEDS ORDERED: PT OWN MED DRAWER 7, Y5N ONE (10:04)
[2017-02-24] MEDS: METHADONE HCL 10 MG TABLET PO SCH (10:06)
[2017-02-24] MEDS: RANITIDINE HCL 150 MG TABLET (FP) PO SCH (10:08)
[2017-02-24] MEDS: METOPROLOL TARTRATE 25 MG TABLET (FP) PO SCH ×2 (10:08→22:28)
--- NOTE | 2017-02-24 11:43 | PN ---
Progress Note (short form) - Note Progress Note: Called for follow up. Noted to be increasingly lethargic over the past day. Overnight required increasing nasal O2 from 2L to 4L. Currently saturation is 97%. Noted that ninoska has been on standing Methadone/MS with PRN MS. Last CXR : poor inspiration. Intake & Output 02/21/17 02/22/17 02/23/17 02/24/17 23:59 23:59 23:59 23:59 Intake Total 2355 500 400 50 Output Total 400 1000 1350 300 Balance 1955 -500 -950 -250 Weight 259 lb 8 oz 255 lb 9.6 oz Last Vital Signs Temp Pulse Resp BP Pulse Ox 98.6 F 78 18 117/65 98 02/24/17 06:00 02/24/17 10:10 02/24/17 10:10 02/24/17 10:10 02/23/17 22:00 Active Medications Acetaminophen (Tylenol -) 650 mg PO Q6H PRN PRN Reason: FEVER OR PAIN Last Admin: 02/18/17 23:28 Dose: 650 mg Atorvastatin Calcium (Lipitor -) 40 mg PO HS [facility] Last Admin: 02/23/17 22:37 Dose: 40 mg Chlorhexidine Gluconate (Hibiclens For Decolonization -) 1 applic TP HS [facility] Last Admin: 02/23/17 22:33 Dose: Not Given Collagenase (Santyl -) 1 applic TP DAILY [facility] Last Admin: 02/23/17 22:32 Dose: 1 applic Gabapentin (Neurontin -) 100 mg PO TID [facility] Last Admin: 02/24/17 06:11 Dose: 100 mg IV Flush (Picc Line Flush) 8 ml IVPUSH PRN PRN PRN Reason: Protocol Piperacillin Sod/Tazobactam Sod (Zosyn 2.25gm Ivpb (Pre-Docked)) 50 mls @ 100 mls/hr IVPB Q8H-IV [facility] PRN Reason: Protocol Last Admin: 02/24/17 10:08 Dose: 100 mls/hr Methadone HCl (Dolophine -) 20 mg PO BID [facility] Last Admin: 02/24/17 10:06 Dose: Not Given Metoprolol Tartrate (Lopressor -) 25 mg PO BID [facility] Last Admin: 02/24/17 10:08 Dose: 25 mg Morphine Sulfate (Ms Contin -) 15 mg PO TID [facility] Last Admin: 02/24/17 06:09 Dose: Not Given Morphine Sulfate (Morphine Injection -) 2 mg IVPUSH DAILY [facility] Last Admin: 02/23/17 18:20 Dose: 2 mg Ondansetron HCl (Zofran Injection) 4 mg IVPB Q8H PRN PRN Reason: NAUSEA AND/OR VOMITING Last Admin: 02/21/17 10:28 Dose: 4 mg Ranitidine HCl (Zantac -) 150 mg PO DAILY [facility] Last Admin: 02/24/17 10:08 Dose: 150 mg Constitutional: Yes: Lethargic, breathing is non-labored Cardiovascular: Yes: Pulse Irregular, S1, S2 Respiratory: Yes: Diminished at the bases, Otherwise clear Gastrointestinal: Yes: Soft, Abdomen, Non-tender Edema: Yes Edema: LLE: 3+, RLE: 3+ Integumentary: Yes: Venous Stasis Changes, Escar Neurological: Yes: Lethargic Labs: Laboratory Results - last 24 hr 02/23/17 02/23/17 02/24/17 18:35 20:30 06:20 WBC 8.6 RBC 3.13 L Hgb 7.7 L Hct 24.0 L MCV 76.5 L MCHC 32.1 RDW 20.2 H Plt Count 237 MPV 8.2 Neutrophils % Lymphocytes % Monocytes % Eosinophils % Basophils % Sodium 138 Potassium 3.4 L Chloride 102 Carbon Dioxide 24 Anion Gap 12 BUN 64 H Creatinine 3.2 H Creat Clearance w eGFR 14.12 Random Glucose 124 H Calcium 7.3 L Total Bilirubin 0.6 AST 30 ALT 18 Alkaline Phosphatase 145 H Total Protein 7.0 Albumin 1.8 L Urine Color Dkyellow Urine Appearance Turbid Urine pH 5.0 Ur Specific Tyner 1.009 Urine Protein 1+ H Urine Glucose (UA) Negative Urine Ketones Negative Urine Blood 3+ H Urine Nitrite Negative Urine Bilirubin Negative Urine Urobilinogen Normal Ur Leukocyte Esterase 1+ H Urine RBC 2902 Urine WBC 63 Urine Bacteria Moderate 02/24/17 06:20 WBC 7.9 RBC 3.32 L Hgb 8.2 L Hct 25.6 L MCV 77.2 L MCHC 32.1 RDW 20.1 H Plt Count 270 MPV 7.8 Neutrophils % 79.4 Lymphocytes % 10.4 Monocytes % 8.4 Eosinophils % 1.6 Basophils % 0.2 Sodium Potassium Chloride Carbon Dioxide Anion Gap BUN Creatinine Creat Clearance w eGFR Random Glucose Calcium Total Bilirubin AST ALT Alkaline Phosphatase Total Protein Albumin Urine Color Urine Appearance Urine pH Ur Specific Tyner Urine Protein Urine Glucose (UA) Urine Ketones Urine Blood Urine Nitrite Urine Bilirubin Urine Urobilinogen Ur Leukocyte Esterase Urine RBC Urine WBC Urine Bacteria Problem List - Problems (1) Atrial fibrillation with rapid ventricular response Code(s): I48.91 - UNSPECIFIED ATRIAL FIBRILLATION (2) Cellulitis of both lower extremities Code(s): L03.115 - CELLULITIS OF RIGHT LOWER LIMB L03.116 - CELLULITIS OF LEFT LOWER LIMB (3) Lactic acid acidosis Code(s): E87.2 - ACIDOSIS (4) Severe sepsis Code(s): A41.9 - SEPSIS, UNSPECIFIED ORGANISM R65.20 - SEVERE SEPSIS WITHOUT SEPTIC SHOCK (5) Chronic cutaneous venous stasis ulcer Code(s): I83.009 - VARICOSE VEINS OF UNSP LOWER EXTREMITY W ULCER OF UNSP SITE (6) Chronic pain Code(s): G89.29 - OTHER CHRONIC PAIN (7) Opioid dependence Code(s): F11.20 - OPIOID DEPENDENCE, UNCOMPLICATED (8) LOVE (acute kidney injury) Code(s): N17.9 - ACUTE KIDNEY FAILURE, UNSPECIFIED Assessment/Plan Periods of hypoxemia overnight most likely related to Obstructive Sleep Apnea and hypoventilation with atelectasis Check CXR ABX per ID Titrate O2 as needed Aspiration precautions May need to adjust the dose of her standing pain meds Will not order NIPPV at this time Patient is for possible transfer to tertiary care If respiratory status worsens -> check ABG Will follow Dr Sesay
[2017-02-24] MEDS ORDERED: BISACODYL 10 MG SUPP.RECT RC ONE (11:45)
[2017-02-24] MEDS ORDERED: DOCUSATE SODIUM 100 MG CAPSULE (FP) PO SCH (12:00)
[2017-02-24] MEDS ORDERED: SENNOSIDES 8.6MG TABLET (FP) PO SCH (12:00)
--- NOTE | 2017-02-24 12:05 | PN ---
Progress Note, Physician History of Present Illness: Continued improvement, bilateral LE cellulitis Confused No c/o pain Afebrile WBC WNL - Current Medication List Current Medications: Active Medications Acetaminophen (Tylenol -) 650 mg PO Q6H PRN PRN Reason: FEVER OR PAIN Last Admin: 02/18/17 23:28 Dose: 650 mg Atorvastatin Calcium (Lipitor -) 40 mg PO HS [facility] Last Admin: 02/23/17 22:37 Dose: 40 mg Chlorhexidine Gluconate (Hibiclens For Decolonization -) 1 applic TP HS [facility] Last Admin: 02/23/17 22:33 Dose: Not Given Collagenase (Santyl -) 1 applic TP DAILY [facility] Last Admin: 02/23/17 22:32 Dose: 1 applic Docusate Sodium (Colace -) 100 mg PO DAILY [facility] Gabapentin (Neurontin -) 100 mg PO TID [facility] Last Admin: 02/24/17 06:11 Dose: 100 mg IV Flush (Picc Line Flush) 8 ml IVPUSH PRN PRN PRN Reason: Protocol Piperacillin Sod/Tazobactam Sod (Zosyn 2.25gm Ivpb (Pre-Docked)) 50 mls @ 100 mls/hr IVPB Q8H-IV [facility] PRN Reason: Protocol Last Admin: 02/24/17 10:08 Dose: 100 mls/hr Methadone HCl (Dolophine -) 20 mg PO HS [facility] Metoprolol Tartrate (Lopressor -) 25 mg PO BID [facility] Last Admin: 02/24/17 10:08 Dose: 25 mg Ondansetron HCl (Zofran Injection) 4 mg IVPB Q8H PRN PRN Reason: NAUSEA AND/OR VOMITING Last Admin: 02/21/17 10:28 Dose: 4 mg Ranitidine HCl (Zantac -) 150 mg PO DAILY [facility] Last Admin: 02/24/17 10:08 Dose: 150 mg Senna (Senna -) 1 tab PO DAILY [facility] - Objective Vital Signs: Vital Signs Temperature 97.4 F L 02/24/17 11:59 Pulse Rate 78 02/24/17 10:10 Respiratory Rate 18 02/24/17 10:10 Blood Pressure 117/65 02/24/17 10:10 O2 Sat by Pulse Oximetry (%) 98 02/23/17 22:00 Constitutional: Yes: No Distress Eyes: Yes: Conjunctiva Clear Cardiovascular: Yes: Regular Rate and Rhythm, S1, S2 Respiratory: Yes: CTA Bilaterally Gastrointestinal: Yes: Normal Bowel Sounds, Soft, Abdomen, Obese. No: Tenderness Extremities: Yes: Other (+ bilteral LE ulcers resolving erythema LE bilterally with exfoliation) Edema: Yes Edema: LLE: 2+, RLE: 2+ Labs: CBC, BMP 02/24/17 06:20 02/24/17 06:20 INR, PTT INR 1.54 (0.82-1.09) H 02/13/17 05:30 Assessment/Plan Sepsis/ septic shock- resolved Infected chronic venous stasis ulcers Bilateral LE cellulitis/ lymphangitis R>L- extending to lateral thighs B/L- improved Toxic metabolic encephalopathy Leukocytosis- resolved Azotemia- improved Continue zosyn, adjusted for azotemia Anticipate additional 48hr IV antibiotic therapy Local wound care
--- NOTE | 2017-02-24 18:37 | PN ---
Progress Note, Physician History of Present Illness: Pt seen and examined at bedside. She is drowsy. Pt unable to answer questions. - Current Medication List Current Medications: Active Medications Acetaminophen (Tylenol -) 650 mg PO Q6H PRN PRN Reason: FEVER OR PAIN Last Admin: 02/18/17 23:28 Dose: 650 mg Atorvastatin Calcium (Lipitor -) 40 mg PO HS [facility] Last Admin: 02/23/17 22:37 Dose: 40 mg Chlorhexidine Gluconate (Hibiclens For Decolonization -) 1 applic TP HS [facility] Last Admin: 02/23/17 22:33 Dose: Not Given Collagenase (Santyl -) 1 applic TP DAILY [facility] Last Admin: 02/23/17 22:32 Dose: 1 applic Docusate Sodium (Colace -) 100 mg PO DAILY [facility] Last Admin: 02/24/17 12:59 Dose: 100 mg Gabapentin (Neurontin -) 100 mg PO TID [facility] Last Admin: 02/24/17 13:01 Dose: 100 mg IV Flush (Picc Line Flush) 8 ml IVPUSH PRN PRN PRN Reason: Protocol Piperacillin Sod/Tazobactam Sod (Zosyn 2.25gm Ivpb (Pre-Docked)) 50 mls @ 100 mls/hr IVPB Q8H-IV [facility] PRN Reason: Protocol Last Admin: 02/24/17 17:59 Dose: 100 mls/hr Methadone HCl (Dolophine -) 20 mg PO HS [facility] Metoprolol Tartrate (Lopressor -) 25 mg PO BID [facility] Last Admin: 02/24/17 10:08 Dose: 25 mg Ondansetron HCl (Zofran Injection) 4 mg IVPB Q8H PRN PRN Reason: NAUSEA AND/OR VOMITING Last Admin: 02/21/17 10:28 Dose: 4 mg Ranitidine HCl (Zantac -) 150 mg PO DAILY [facility] Last Admin: 02/24/17 10:08 Dose: 150 mg Senna (Senna -) 1 tab PO DAILY [facility] Last Admin: 02/24/17 12:59 Dose: 1 tab - Objective Vital Signs: Vital Signs Temperature 97.4 F L 02/24/17 14:28 Pulse Rate 73 02/24/17 14:28 Respiratory Rate 22 02/24/17 14:28 Blood Pressure 129/71 02/24/17 14:28 O2 Sat by Pulse Oximetry (%) 98 02/24/17 11:00 Constitutional: Yes: Calm Eyes: Yes: Conjunctiva Clear Cardiovascular: Yes: S1, S2 Respiratory: Yes: CTA Bilaterally Gastrointestinal: Yes: Soft, Abdomen, Obese Genitourinary: Yes: Brady Present Musculoskeletal: Yes: Muscle Weakness Edema: Yes Edema: LLE: 1+, RLE: 1+ Wound/Incision: Yes: Other (bilateral leg wounds) Labs: CBC, BMP 02/24/17 06:20 02/24/17 06:20 INR, PTT INR 1.54 (0.82-1.09) H 02/13/17 05:30 - ....Imaging Chest X-ray: Report Reviewed Problem List - Problems (1) LOVE (acute kidney injury) Code(s): N17.9 - ACUTE KIDNEY FAILURE, UNSPECIFIED (2) Altered mental state Code(s): R41.82 - ALTERED MENTAL STATUS, UNSPECIFIED (3) Atrial fibrillation with rapid ventricular response Code(s): I48.91 - UNSPECIFIED ATRIAL FIBRILLATION (4) Cellulitis of both lower extremities Code(s): L03.115 - CELLULITIS OF RIGHT LOWER LIMB L03.116 - CELLULITIS OF LEFT LOWER LIMB (5) HTN (hypertension) Code(s): I10 - ESSENTIAL (PRIMARY) HYPERTENSION (6) Lymphedema Code(s): I89.0 - LYMPHEDEMA, NOT ELSEWHERE CLASSIFIED (7) Morbid obesity Code(s): E66.01 - MORBID (SEVERE) OBESITY DUE TO EXCESS CALORIES (8) Diabetes Code(s): E11.9 - TYPE 2 DIABETES MELLITUS WITHOUT COMPLICATIONS (9) Opioid dependence Code(s): F11.20 - OPIOID DEPENDENCE, UNCOMPLICATED Assessment/Plan Current Medications Generic Name Dose Route Start Last Admin Trade Name Freq PRN Reason Stop Dose Admin Acetaminophen 650 mg 02/13/17 14:54 02/18/17 23:28 Tylenol - PO 650 mg Q6H PRN Administration FEVER OR PAIN Atorvastatin Calcium 40 mg 02/14/17 22:00 02/23/17 22:37 Lipitor - PO 40 mg HS [facility] Administration Chlorhexidine Gluconate 1 applic 02/13/17 22:00 02/23/17 22:33 Hibiclens For Decolonization - TP Not Given HS [facility] Collagenase 1 applic 02/13/17 17:30 02/23/17 22:32 Santyl - TP 1 applic DAILY [facility] Administration Docusate Sodium 100 mg 02/24/17 12:00 02/24/17 12:59 Colace - PO 100 mg DAILY [facility] Administration Gabapentin 100 mg 02/17/17 22:00 02/24/17 13:01 Neurontin - PO 100 mg TID [facility] Administration IV Flush 8 ml 02/15/17 00:20 Picc Line Flush IVPUSH PRN PRN Protocol Piperacillin Sod/Tazobactam Sod 50 mls @ 100 mls/hr 02/23/17 18:00 02/24/17 17: 59 Zosyn 2.25gm Ivpb (Pre-Docked) IVPB 100 mls/hr Q8H-IV [facility] Administration Protocol Methadone HCl 20 mg 02/24/17 22:00 Dolophine - PO HS [facility] Metoprolol Tartrate 25 mg 02/13/17 22:00 02/24/17 10:08 Lopressor - PO 25 mg BID [facility] Administration Ondansetron HCl 4 mg 02/20/17 15:56 02/21/17 10:28 Zofran Injection IVPB 4 mg Q8H PRN Administration NAUSEA AND/OR VOMITING Ranitidine HCl 150 mg 02/14/17 10:00 02/24/17 10:08 Zantac - PO 150 mg DAILY [facility] Administration Senna 1 tab 02/24/17 12:00 02/24/17 12:59 Senna - PO 1 tab DAILY [facility] Administration Laboratory Tests 02/22/17 02/24/17 19:45 06:20 Urine Eosinophils Pending KIMBERLEY Screen Pending Impression 1. LOVE 2. fluid overload 3. cellulitis/lymphangitis 4. lower extremity ulcers 5. a-fib 6. chronic back pain 7. DM 8. HTN 9. hyperlipidemia Plan - renal function is improving - will hold off lasix today, discussed with cardio - repeat labs in am - recommend decreasing narcotics - neuro input appreciated - A/c for a-fib per primary team - renal workup in progress - will follow Dr Fuentes
[2017-02-24] MEDS ORDERED: POTASSIUM CHLORIDE ORAL LIQUID 20 MEQ/15 ML PO ONE (21:15)
[2017-02-24] MEDS ORDERED: METHADONE HCL 10 MG TABLET PO SCH (22:00)
[2017-02-24] MEDS: ATORVASTATIN CA 40 MG TABLET (FP) PO SCH (22:28)
--- NOTE | 2017-02-24 23:18 | PN ---
Progress Note, Physician History of Present Illness: No new complaints - Current Medication List Current Medications: Active Medications Acetaminophen (Tylenol -) 650 mg PO Q6H PRN PRN Reason: FEVER OR PAIN Last Admin: 02/18/17 23:28 Dose: 650 mg Atorvastatin Calcium (Lipitor -) 40 mg PO HS [facility] Last Admin: 02/24/17 22:28 Dose: 40 mg Chlorhexidine Gluconate (Hibiclens For Decolonization -) 1 applic TP HS [facility] Last Admin: 02/23/17 22:33 Dose: Not Given Collagenase (Santyl -) 1 applic TP DAILY [facility] Last Admin: 02/23/17 22:32 Dose: 1 applic Docusate Sodium (Colace -) 100 mg PO DAILY [facility] Last Admin: 02/24/17 12:59 Dose: 100 mg Gabapentin (Neurontin -) 100 mg PO TID [facility] Last Admin: 02/24/17 22:28 Dose: 100 mg IV Flush (Picc Line Flush) 8 ml IVPUSH PRN PRN PRN Reason: Protocol Piperacillin Sod/Tazobactam Sod (Zosyn 2.25gm Ivpb (Pre-Docked)) 50 mls @ 100 mls/hr IVPB Q8H-IV [facility] PRN Reason: Protocol Last Admin: 02/24/17 17:59 Dose: 100 mls/hr Methadone HCl (Dolophine -) 20 mg PO HS [facility] Last Admin: 02/24/17 22:29 Dose: 20 mg Metoprolol Tartrate (Lopressor -) 25 mg PO BID [facility] Last Admin: 02/24/17 22:28 Dose: 25 mg Ondansetron HCl (Zofran Injection) 4 mg IVPB Q8H PRN PRN Reason: NAUSEA AND/OR VOMITING Last Admin: 02/21/17 10:28 Dose: 4 mg Ranitidine HCl (Zantac -) 150 mg PO DAILY [facility] Last Admin: 02/24/17 10:08 Dose: 150 mg Senna (Senna -) 1 tab PO DAILY [facility] Last Admin: 02/24/17 12:59 Dose: 1 tab - Objective Vital Signs: Vital Signs Temperature 97.3 F L 02/24/17 18:00 Pulse Rate 75 02/24/17 18:00 Respiratory Rate 20 02/24/17 18:00 Blood Pressure 108/67 02/24/17 18:00 O2 Sat by Pulse Oximetry (%) 98 02/24/17 11:00 Cardiovascular: Yes: WNL, Regular Rate and Rhythm Respiratory: Yes: WNL, Regular, CTA Bilaterally Gastrointestinal: Yes: WNL, Normal Bowel Sounds, Soft Labs: CBC, BMP 02/24/17 06:20 02/24/17 06:20 INR, PTT INR 1.54 (0.82-1.09) H 02/13/17 05:30 Problem List - Problems (1) Sepsis Code(s): A41.9 - SEPSIS, UNSPECIFIED ORGANISM (2) Atrial fibrillation with rapid ventricular response Code(s): I48.91 - UNSPECIFIED ATRIAL FIBRILLATION (3) Lymphedema of both lower extremities Code(s): I89.0 - LYMPHEDEMA, NOT ELSEWHERE CLASSIFIED (4) Chronic cutaneous venous stasis ulcer Code(s): I83.009 - VARICOSE VEINS OF UNSP LOWER EXTREMITY W ULCER OF UNSP SITE (5) Chronic pain Code(s): G89.29 - OTHER CHRONIC PAIN (6) Diabetes Code(s): E11.9 - TYPE 2 DIABETES MELLITUS WITHOUT COMPLICATIONS (7) HTN (hypertension) Code(s): I10 - ESSENTIAL (PRIMARY) HYPERTENSION (8) Morbid obesity Code(s): E66.01 - MORBID (SEVERE) OBESITY DUE TO EXCESS CALORIES (9) Altered mental state Code(s): R41.82 - ALTERED MENTAL STATUS, UNSPECIFIED
[2017-02-25 00:16] VITALS: BP 114/61; PULSE 79; TEMP 96.7
--- NOTE | 2017-02-25 01:43 | DS ---
Physical Examination Vital Signs: Vital Signs Temperature 96.7 F L 02/24/17 22:15 Pulse Rate 79 02/24/17 22:15 Respiratory Rate 14 02/24/17 22:15 Blood Pressure 114/61 02/24/17 22:15 O2 Sat by Pulse Oximetry (%) 95 02/24/17 21:00 Constitutional: Yes: Well Nourished Neck: Yes: Supple Cardiovascular: Yes: Pulse Irregular Respiratory: Yes: Diminished Gastrointestinal: Yes: WNL, Normal Bowel Sounds, Abdomen, Obese Extremities: Yes: Other ((+) erythema w/ blistering lesions on thighs and weeping (+) LLE leg ulcers) Labs: CBC, BMP 02/24/17 06:20 02/24/17 06:20 Discharge Summary Reason For Visit: SEPTIC SHOCK Sepsis Chronic leg ulcers Cellulitis Rapid Afib HTN HLD Diabetes Morbid obesity Acute renal failure CHF Hospital Course: Pt is a morbidly obese 76 y/o female w/ multiple medical problems including diabetes, afib, htn, hld, chf, cva, terry, chronic leg ulcers and on methadone for chronic opoid use due to back pain. Pt was initially admitted to ICU for sepsis w/ a wbc of 27,000. This was thought to be due to leg ulcers/cellulitis. Pt was managed w/ IVF and IV antibxs: vanco/zosyn. Wound care was continued. Pt wbc decreased to normal however creatinine wc at [facility] on admission was 1.9 increased to 3.5 at maximum and vanco was stopped. Renal function now improving w/ IV hydration however at the same time pt also being treated w/ IV lasix for fluid overload/anasarca. Pt has been having waxing and waning mental status wc is thought to be due to metabolic encephalopathy. 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 Blood cultures have remained negative. Pt transferred to tertiary center for further management of wounds. Condition: Fair - Instructions Diet, Activity, Other Instructions: 2 gram sodium diet/2200 calorie diet Disposition: TRANSFER ACUTE CARE/OTHER HOSP - Home Medications Comprehensive Discharge Medication List: Ambulatory Orders
== END 2017-02-24 22:55 | disposition short-term general hospital (02) | DRG 871 ==
LOC: JER 12:38 → JICU 20:49 → J4W 02-13 17:57 → J5S 02-16 13:44
PROVIDERS: ADMIT Internal Medicine; ATTEND Internal Medicine
DX: A41.9 Sepsis, unspecified organism (principal); R65.21 Severe sepsis with septic shock; G92 Toxic encephalopathy; L03.116 Cellulitis of left lower limb; L03.115 Cellulitis of right lower limb; N17.9 Acute kidney failure, unspecified; L97.929 Non-pressure chronic ulcer of unspecified part of left lower leg with unspecified severity; Z68.41 Body mass index [BMI] 40.0-44.9, adult; E87.2 Acidosis; J98.11 Atelectasis; F11.23 Opioid dependence with withdrawal; I48.91 Unspecified atrial fibrillation; E78.5 Hyperlipidemia, unspecified; E11.9 Type 2 diabetes mellitus without complications; E66.9 Obesity, unspecified; R41.82 Altered mental status, unspecified; I83.009 Varicose veins of unspecified lower extremity with ulcer of unspecified site; D72.829 Elevated white blood cell count, unspecified; G89.29 Other chronic pain; I89.0 Lymphedema, not elsewhere classified; Z86.73 Personal history of transient ischemic attack (TIA), and cerebral infarction without residual deficits; I10 Essential (primary) hypertension; M54.5 Low back pain; Z87.891 Personal history of nicotine dependence
CPT/HCPCS: 36415; 36600; 70450-TC; 71010-TC; 76775-TC; 76856-TC; 80048; 80053; 80307; 81003; 81015; 82436; 82550; 82553; 82570; 82803; 83036; 83605; 83735; 84100; 84133; 84156; 84300; 84484; 84540; 85025; 85027; 85610; 85730; 86038; 86850; 86900; 86901; 87040; 87077; 87086; 87205; 93005; 93010; 93306-TC; 97162-GP; 99285-25; G0480; J1644; P9047